=== PATIENT | male | born 1970 | race Caucasian/White ===

== ENCOUNTER 2018-07-04 10:20 | Observation (INO) | payer OTHER ==
--- NOTE | 2018-07-04 10:53 | ED ---
General Adult HPI - General Chief complaint: Shortness of Breath Stated complaint: SOB, CHEST CONGESTION Time Seen by Provider: 07/04/18 10:30 Source: patient, RN notes reviewed Mode of arrival: ambulatory Limitations: no limitations - History of Present Illness Initial comments: This is a 47-year-old male presents emergency Department complaining of shortness of breath per patient states he's been having some shortness of breath for about 3 months now. Patient states she's not been able see a physician because he had no insurance until 2 days ago. Patient states he also is been having a cough since before . Patient states he continues to cough. Patient states he hasn't had any recent fever or chills. Patient denies any chest pain. Patient denies any palpitations. Patient states he went to see an urgent care facility yesterday and they told him he has a mass on his lungs and he went to see his new primary medical care doctor this morning and they sent him to the emergency department. Patient denies any abdominal pain patient denies nausea vomiting diarrhea. Patient denies headache patient denies numbness weakness. Patient denies any lightheadedness dizziness or near syncopal episode. - Related Data Home Medications Medication Instructions Recorded Confirmed No Known Home Medications 01/31/16 07/04/18 Allergies Allergy/AdvReac Type Severity Reaction Status Date / Time No Known Allergies Allergy Verified 07/04/18 10:57 Review of Systems ROS Statement: Those systems with pertinent positive or pertinent negative responses have been documented in the HPI. ROS Other: All systems not noted in ROS Statement are negative. Past Medical History Past Medical History: Hypertension Additional Past Medical History / Comment(s): Lumbar back pain History of Any Multi-Drug Resistant Organisms: None Reported Past Surgical History: No Surgical Hx Reported Additional Past Surgical History / Comment(s): oral, vasectomy Past Psychological History: No Psychological Hx Reported Smoking Status: Former smoker Past Alcohol Use History: Rare Past Drug Use History: None Reported General Exam - General Exam Comments Initial Comments: GENERAL: Patient is well-developed and well-nourished. Patient is nontoxic and well- hydrated and is in mild distress. ENT: Neck is soft and supple. No significant lymphadenopathy is noted. Oropharynx is clear. Moist mucous membranes. Neck has full range of motion without eliciting any pain. EYES: The sclera were anicteric and conjunctiva were pink and moist. Extraocular movements were intact and pupils were equal round and reactive to light. Eyelids were unremarkable. PULMONARY: Unlabored respirations. Good breath sounds bilaterally. No audible rales rhonchi or wheezing was noted. CARDIOVASCULAR: There is a regular rate and rhythm without any murmurs gallops or rubs. ABDOMEN: Soft and nontender with normal bowel sounds. No palpable organomegaly was noted. There is no palpable pulsatile mass. SKIN: Skin is clear with no lesions or rashes and otherwise unremarkable. NEUROLOGIC: Patient is alert and oriented x3. Cranial nerves II through XII are grossly intact. Motor and sensory are also intact. Normal speech, volume and content. Symmetrical smile. MUSCULOSKELETAL: Normal extremities with adequate strength and full range of motion. No lower extremity swelling or edema. No calf tenderness. LYMPHATICS: No significant lymphadenopathy is noted PSYCHIATRIC: Normal psychiatric evaluation. Limitations: no limitations Course Vital Signs 07/04/18 07/04/18 07/04/18 10:36 10:52 11:22 Temperature 98.6 F Pulse Rate 66 66 Respiratory 18 22 16 Rate Blood Pressure 148/87 126/97 O2 Sat by Pulse 95 95 Oximetry Medical Decision Making - Medical Decision Making EKG shows sinus bradycardia 51 bpm MS interval 274 Ron is 92 QT interval is 434 QTC is 400. Patient's EKG shows no ST segment elevation or depression or T wave abnormalities are noted. CT of the chest shows masslike area in the suprahilar area on the left I spoke with Dr. Black he wanted to admit the patient admitted the patient I consult pulmonology I started antibiotics for possible obstructive pneumonia. - Lab Data Result diagrams: 07/04/18 10:50 07/04/18 10:50 Lab Results 07/04/18 07/04/18 07/04/18 Range/Units 10:50 10:50 10:50 WBC 6.3 (3.8-10.6) k/uL RBC 4.90 (4.30-5.90) m/uL Hgb 14.8 (13.0-17.5) gm/dL Hct 44.7 (39.0-53.0) % MCV 91.2 (80.0-100.0) fL MCH 30.2 (25.0-35.0) pg MCHC 33.2 (31.0-37.0) g/dL RDW 13.0 (11.5-15.5) % Plt Count 264 (150-450) k/uL Neutrophils % 54 % Lymphocytes % 34 % Monocytes % 7 % Eosinophils % 2 % Basophils % 0 % Neutrophils # 3.4 (1.3-7.7) k/uL Lymphocytes # 2.1 (1.0-4.8) k/uL Monocytes # 0.4 (0-1.0) k/uL Eosinophils # 0.1 (0-0.7) k/uL Basophils # 0.0 (0-0.2) k/uL PT 10.8 (9.0-12.0) sec INR 1.0 (<1.2) APTT 26.1 (22.0-30.0) sec D-Dimer 0.41 (<0.60) mg/L FEU Sodium 140 (137-145) mmol/L Potassium 4.8 (3.5-5.1) mmol/L Chloride 107 (98-107) mmol/L Carbon Dioxide 23 (22-30) mmol/L Anion Gap 10 mmol/L BUN 26 H (9-20) mg/dL Creatinine 0.95 (0.66-1.25) mg/dL Est GFR (CKD-EPI)AfAm >90 (>60 ml/min/1.73 sqM) Est GFR (CKD-EPI)NonAf >90 (>60 ml/min/1.73 sqM) Glucose 118 H (74-99) mg/dL Calcium 10.0 (8.4-10.2) mg/dL Magnesium 1.8 (1.6-2.3) mg/dL Total Bilirubin 1.4 H (0.2-1.3) mg/dL AST 24 (17-59) U/L ALT 57 (21-72) U/L Alkaline Phosphatase 63 (38-126) U/L Troponin I (0.000-0.034) ng/mL NT-Pro-B Natriuret Pep pg/mL Total Protein 7.9 (6.3-8.2) g/dL Albumin 4.7 (3.5-5.0) g/dL 07/04/18 07/04/18 Range/Units 10:50 10:50 WBC (3.8-10.6) k/uL RBC (4.30-5.90) m/uL Hgb (13.0-17.5) gm/dL Hct (39.0-53.0) % MCV (80.0-100.0) fL MCH (25.0-35.0) pg MCHC (31.0-37.0) g/dL RDW (11.5-15.5) % Plt Count (150-450) k/uL Neutrophils % % Lymphocytes % % Monocytes % % Eosinophils % % Basophils % % Neutrophils # (1.3-7.7) k/uL Lymphocytes # (1.0-4.8) k/uL Monocytes # (0-1.0) k/uL Eosinophils # (0-0.7) k/uL Basophils # (0-0.2) k/uL PT (9.0-12.0) sec INR (<1.2) APTT (22.0-30.0) sec D-Dimer (<0.60) mg/L FEU Sodium (137-145) mmol/L Potassium (3.5-5.1) mmol/L Chloride (98-107) mmol/L Carbon Dioxide (22-30) mmol/L Anion Gap mmol/L BUN (9-20) mg/dL Creatinine (0.66-1.25) mg/dL Est GFR (CKD-EPI)AfAm (>60 ml/min/1.73 sqM) Est GFR (CKD-EPI)NonAf (>60 ml/min/1.73 sqM) Glucose (74-99) mg/dL Calcium (8.4-10.2) mg/dL Magnesium (1.6-2.3) mg/dL Total Bilirubin (0.2-1.3) mg/dL AST (17-59) U/L ALT (21-72) U/L Alkaline Phosphatase (38-126) U/L Troponin I <0.012 (0.000-0.034) ng/mL NT-Pro-B Natriuret Pep 27 pg/mL Total Protein (6.3-8.2) g/dL Albumin (3.5-5.0) g/dL Disposition Clinical Impression: Obstructive pneumonia, Lung mass Disposition: ADMITTED IP TO THIS HOSP Referrals: Deuce Tompkins MD [Primary Care Provider] - 1-2 days Time of Disposition: 12:33
[2018-07-04 11:31] LABS: Basophils % (A) 0 %; Eosinophils # (A) 0.1 k/uL (0-0.7); Eosinophils % (A) 2 %; HCT 44.7 % (39.0-53.0); HGB 14.8 gm/dL (13.0-17.5); Lymphocytes # (A) 2.1 k/uL (1.0-4.8); Lymphocytes % (A) 34 %; MCH 30.2 pg (25.0-35.0); MCHC 33.2 g/dL (31.0-37.0); MCV 91.2 fL (80.0-100.0); Monocytes # (A) 0.4 k/uL (0-1.0); Monocytes % (A) 7 %; Neutrophils # (A) 3.4 k/uL (1.3-7.7); Neutrophils % (A) 54 %; Platelet Count 264 k/uL (150-450); WBC 6.3 k/uL (3.8-10.6)
[2018-07-04 11:42] LABS: ALT 57 U/L (21-72); AST 24 U/L (17-59); Albumin 4.7 g/dL (3.5-5.0); Alkaline Phosphatase 63 U/L (38-126); Anion Gap 10 mmol/L; Blood Urea Nitrogen 26 mg/dL (9-20); Carbon Dioxide 23 mmol/L (22-30); Chloride 107 mmol/L (98-107); Glucose 118 mg/dL (74-99); Magnesium 1.8 mg/dL (1.6-2.3); Potassium 4.8 mmol/L (3.5-5.1); Sodium 140 mmol/L (137-145); Total Bilirubin 1.4 mg/dL (0.2-1.3); Total Protein 7.9 g/dL (6.3-8.2)
[2018-07-04 11:46] LABS: D-Dimer 0.41 mg/L FEU (<0.60); Partial Thromboplastin Time 26.1 sec (22.0-30.0); Prothrombin Time 10.8 sec (9.0-12.0)
--- NOTE | 2018-07-04 12:05 | CT ---
EXAMINATION TYPE: CT chest angio for PE DATE OF EXAM: 07/04/2018 COMPARISON: NONE HISTORY: Congestion, SOB CT DLP: 408.7 mGycm. Automated Exposure Control for Dose Reduction was Utilized. CONTRAST: CTA scan of the thorax is performed with IV Contrast, patient injected with 100 mL of Isovue 370, pul monary embolism protocol. MIP Images are created on CT scanner and reviewed. FINDINGS: LUNGS: There is 7 mm calcified nodule or granuloma in the left lower lobe axial image 63. Dependent a telectasis bilateral lower lobes is present. There is suspicious left suprahilar mass centered inferi or medial aspect left upper lobe abutting the mediastinum measuring 3.2 x 2.3 cm on axial image 35. M ild underlying emphysematous change is present in the lung apices. MEDIASTINUM: There is satisfactory enhancement of the pulmonary artery and its branches, there is no CT evidence for pulmonary embolism. There are no greater than 1 cm noncalcified hilar or mediastina l lymph nodes. There is nonspecific prominent partially calcified 13 x 9 mm prevascular lymph node o n axial image 39. There are prominent but subcentimeter subcarinal lymph nodes No cardiomegaly or per icardial effusion is seen. OTHER: Mild to moderate multilevel spurring in the thoracic spine is seen. IMPRESSION: 1. Mild emphysematous change with evidence of old granulomatous disease. No suspicious acute pulmonar y process. 2. No acute pulmonary embolism. 3. Suspicious noncalcified left suprahilar mass or masslike consolidation medially abutting the media stinum in which neoplasm cannot be excluded. Follow-up PET/CT advised to further evaluate.
[2018-07-04] MEDS ORDERED: cefTRIAXone IN SWFI 1,000 MG/10 ML SYRINGE IVP STA (12:31)
[2018-07-04] MEDS ORDERED: SODIUM CHLORIDE 0.9% 1,000 ML IV ONE (12:33)
[2018-07-04] MEDS: LORazepam 2 MG/ML INJ IV PRN (14:17)
--- NOTE | 2018-07-04 14:59 | P.CNPUL ---
History of Present Illness Consult date: 07/04/18 Reason for consult: lung mass History of present illness: 47-year-old male patient was Hospital as because of increased cough that now for the past 3 months. Some limited shortness of breath. The patient hasn't been able to see any physician as the patient did not have any medical coverage. No hemoptysis. No pleurisy. No weight loss. No other constitutional symptoms. He is a chronic smoker. He came into the emergency the chest x-ray was abnormal and a CAT scan of the chest was done that showed mild emphysematous change in addition to a 3.2 x 2.3 cm mass in the left suprahilar area, central in location very close to the mediastinum without any significant mediastinal lymphadenopathy. There is 1 suspicious lymph node in the prevascular area measuring 1.3 x 9 mm in size. This can be a nonspecific findings. The rest of mediastinum including the hilar and mediastinal lymph nodes are all not enlarged. Review of Systems Constitutional: Denies chills, Denies fever Eyes: denies as per HPI, denies blurred vision, denies bulging eye, denies decreased vision, denies diplopia, denies discharge, denies dry eye, denies irritation, denies itching, denies pain, denies photophobia, denies loss of peripheral vision, denies loss of vision, denies tunnel vision/blind spots Ears: deny: decreased hearing, ear discharge, earache, tinnitus Ears, nose, mouth and throat: Reports as per HPI Cardiovascular: Denies chest pain, Denies shortness of breath Respiratory: Reports cough, Reports dyspnea Gastrointestinal: Reports as per HPI Genitourinary: Reports as per HPI Musculoskeletal: Reports as per HPI Musculoskeletal: absent: ankle pain, ankle stiffness, ankle swelling, as per HPI , elbow pain, elbow stiffness, elbow swelling, foot pain, foot stiffness, foot swelling, hand pain, hand stiffness, hand swelling, hip pain, hip stiffness, hip swelling, knee pain, knee stiffness, knee swelling, shoulder pain, shoulder stiffness, shoulder swelling, wrist pain, wrist stiffness, wrist swelling Integumentary: Denies pruritus, Denies rash Neurological: Reports as per HPI Psychiatric: Reports as per HPI Hematologic/Lymphatic: Reports as per HPI Allergic/Immunologic: Reports as per HPI Past Medical History Past Medical History: Hypertension Additional Past Medical History / Comment(s): Lumbar back pain, bells palsy History of Any Multi-Drug Resistant Organisms: None Reported Past Surgical History: No Surgical Hx Reported Additional Past Surgical History / Comment(s): oral, vasectomy Past Anesthesia/Blood Transfusion Reactions: No Reported Reaction Past Psychological History: No Psychological Hx Reported Smoking Status: Former smoker Past Alcohol Use History: Rare Past Drug Use History: None Reported - Past Family History Father Family Medical History: Renal Disease Medications and Allergies Home Medications Medication Instructions Recorded Confirmed Type No Known Home Medications 01/31/16 07/04/18 History Allergies Allergy/AdvReac Type Severity Reaction Status Date / Time No Known Allergies Allergy Verified 07/04/18 10:57 Physical Exam Vitals: Vital Signs Temp Pulse Resp BP Pulse Ox 07/04/18 12:30 52 L 18 127/87 96 07/04/18 12:20 44 L 18 127/87 07/04/18 12:10 48 L 14 127/87 07/04/18 12:00 59 L 16 07/04/18 11:50 45 L 16 07/04/18 11:40 56 L 14 07/04/18 11:30 126/97 07/04/18 11:22 66 16 126/97 95 07/04/18 10:52 22 07/04/18 10:36 98.6 F 66 18 148/87 95 Intake and Output 07/03/18 07/04/18 07/04/18 22:59 06:59 14:59 Other: Weight 98.43 kg The patient appeared well nourished and normally developed. Vital signs as documented. Head exam is unremarkable. No scleral icterus or corneal arcus noted. Neck is without jugular venous distension, thyromegaly, or carotid bruits. Carotid upstrokes are brisk bilaterally. Lungs are clear to auscultation and percussion. Cardiac exam reveals the PMI to be normally sized and situated. Rhythm is regular. First and second heart sounds normal. No murmurs, rubs or gallops. Abdominal exam reveals normal bowel sounds, no masses , no organomegaly and no aortic enlargement. Extremities are nonedematous and both femoral and pedal pulses are normal. Neurologically awake and alert and is no focal logical deficits. Results - Laboratory Findings CBC and BMP: 07/04/18 10:50 07/04/18 10:50 PT/INR, D-dimer PT 10.8 sec (9.0-12.0) 07/04/18 10:50 INR 1.0 (<1.2) 07/04/18 10:50 D-Dimer 0.41 mg/L FEU (<0.60) 07/04/18 10:50 Abnormal lab findings: Abnormal Labs 07/04/18 10:50 BUN 26 H Glucose 118 H Total Bilirubin 1.4 H - Diagnostic Findings Chest x-ray: image reviewed CT scan - chest: image reviewed Assessment and Plan Plan: Assessment 1 left suprahilar mass measuring 3.2 x 2.3 cm in size. The findings are very suspicious for malignancy. The lesion itself is abutting the mediastinum. There is a nonspecific prevascular lymph node measuring 13 x 9 mm in size. 2 mild emphysema 3 chronic smoker 4 chronic cough secondary to above, ongoing for now. 5 cutaneous lipomas 6 anxiety Plan I do not see the need for biopsy. This is a very highly suspicious left upper lobe lesion that most likely presents an underlying malignancy of a bronchogenic type/lung cancer. The lesion is not fully accessible to a biopsy knowing that I do not see any airway leading into that area and the lesion is sent for this very close to the mediastinum is almost abutting the mediastinum. The patient will need an outpatient PET scan to assess the metabolic activity of this lesion. He will need an outpatient for the function tests. Subsequently, the patient will need an immediate thoracic surgery consultation in consultation for left upper lobe resection. If not and the before surgical resection, we'll consider biopsy for diagnostic purposes. Meanwhile, we'll give the patient combination of DuoNeb nebulized treatments on the clock, IV Solu Medrol, promethazine with codeine to suppress his cough and I anticipate his cough to subside over the next 24 hours. Ativan for anxiety as the patient is extremely anxious at this point in time. We'll continue to follow. This is discussed with the patient at length.
--- NOTE | 2018-07-04 15:11 | P.HPIM ---
History of Present Illness 47-year-old pleasant gentleman came in with complaints of symptoms of cough has been going on for 3 months with some shortness of breath patient denied any fever chills nausea vomiting. Patient denied any hemoptysis significant weight loss area did patient had a chest x-ray and a CAT scan which showed emphysematous changes and a 3.2 X 2.3 mass in the left upper the suprahilar area with significant mediastinal lymphadenopathy, pulmonary was consulted possibility of malignancy is high same thing was discussed with the patient. Patient used to smoke 19 years ago does have [id number] history of smoking. Review of Systems REVIEW OF SYSTEMS: CONSTITUTIONAL: No fever, no malaise, no fatigue. HEENT: No recent visual problems or hearing problems. Denied any sore throat. CARDIOVASCULAR: No chest pain, orthopnea, PND, no palpitations, no syncope. PULMONARY:, no hemoptysis. GASTROINTESTINAL: No diarrhea, no nausea, no vomiting, no abdominal pain. NEUROLOGICAL: No headaches, no weakness, no numbness. HEMATOLOGICAL: Denies any bleeding or petechiae. GENITOURINARY: Denies any burning micturition, frequency, or urgency. MUSCULOSKELETAL/RHEUMATOLOGICAL: Denies any joint pain, swelling, or any muscle pain. ENDOCRINE: Denies any polyuria or polydipsia. The rest of the 14-point review of systems is negative. Past Medical History Past Medical History: Hypertension Additional Past Medical History / Comment(s): Lumbar back pain, bells palsy History of Any Multi-Drug Resistant Organisms: None Reported Past Surgical History: No Surgical Hx Reported Additional Past Surgical History / Comment(s): oral, vasectomy Past Anesthesia/Blood Transfusion Reactions: No Reported Reaction Past Psychological History: No Psychological Hx Reported Smoking Status: Former smoker Past Alcohol Use History: Rare Past Drug Use History: None Reported - Past Family History Father Family Medical History: Renal Disease Medications and Allergies Home Medications Medication Instructions Recorded Confirmed Type No Known Home Medications 01/31/16 07/04/18 History Allergies Allergy/AdvReac Type Severity Reaction Status Date / Time No Known Allergies Allergy Verified 07/04/18 10:57 Physical Exam Vitals: Vital Signs Temp Pulse Pulse Resp BP BP Pulse Ox 07/04/18 13:30 97.5 F L 57 L 20 159/102 98 07/04/18 12:30 52 L 18 127/87 96 07/04/18 12:20 44 L 18 127/87 07/04/18 12:10 48 L 14 127/87 07/04/18 12:00 59 L 16 07/04/18 11:50 45 L 16 07/04/18 11:40 56 L 14 07/04/18 11:30 126/97 07/04/18 11:22 66 16 126/97 95 07/04/18 10:52 22 07/04/18 10:36 98.6 F 66 18 148/87 95 Intake and Output 07/04/18 07/04/18 07/04/18 06:59 14:59 22:59 Other: Weight 98.43 kg PHYSICAL EXAMINATION: GENERAL: The patient is alert and oriented x3, not in any acute distress. Well developed, well nourished. HEENT: Pupils are round and equally reacting to light. EOMI. No scleral icterus. No conjunctival pallor. Normocephalic, atraumatic. No pharyngeal erythema. No thyromegaly. CARDIOVASCULAR: S1 and S2 present. No murmurs, rubs, or gallops. PULMONARY: Chest is clear to auscultation, no wheezing or crackles. ABDOMEN: Soft, nontender, nondistended, normoactive bowel sounds. No palpable organomegaly. MUSCULOSKELETAL: No joint swelling or deformity. EXTREMITIES: No cyanosis, clubbing, or pedal edema. NEUROLOGICAL: Gross neurological examination did not reveal any focal deficits. SKIN: No rashes. Results CBC & Chem 7: 07/04/18 10:50 07/04/18 10:50 Labs: Abnormal Lab Results - Last 24 Hours (Table) 07/04/18 Range/Units 10:50 BUN 26 H (9-20) mg/dL Glucose 118 H (74-99) mg/dL Total Bilirubin 1.4 H (0.2-1.3) mg/dL Thrombosis Risk Factor Assmnt - Choose All That Apply Each Factor Represents 1 point: Age 41-60 years Thrombosis Risk Factor Assessment Total Risk Factor Score: 1 Thrombosis Risk Factor Assessment Level: Low Risk Assessment and Plan Plan: -Cough probably because of malignancy will use a inhalational treatments. In with codeine. My suspicion of pneumonia is low patient will be continued on antibiotics today probably can discontinue antibiotics tomorrow patient probably can be discharged tomorrow after evaluation by pulmonary -Left suprahilar mass high possibility of malignancy, pulmonary will evaluated the patient -Mild emphysema patient will be started given steroids for his cough anyways -Multiple cutaneous lipomas -Anxiety disorder
[2018-07-04] MEDS: PROMETHAZ-COD 6.25-10 MG/5 ML 5 ML CUP PO PRN (17:58)
[2018-07-04] MEDS: ALPRAZolam 0.25 MG TAB PO PRN (17:58)
[2018-07-04] MEDS: IPRATROPIUM-ALBUTEROL 3 ML NEB INHALATION SCH ×2 (18:19→19:28)
[2018-07-04] MEDS: methylPREDNISolone SOD SUCCI 40 MG/ML 1 ML VIAL IV SCH (21:49)
[2018-07-04 22:58] VITALS: RESP 18
[2018-07-05 06:20] VITALS: BP 128/74; TEMP 96.7
[2018-07-05] MEDS: IPRATROPIUM-ALBUTEROL 3 ML NEB INHALATION SCH ×2 (07:23→11:13)
[2018-07-05] MEDS: ALPRAZolam 0.25 MG TAB PO PRN ×2 (08:16→12:19)
[2018-07-05] MEDS: methylPREDNISolone SOD SUCCI 40 MG/ML 1 ML VIAL IV SCH (08:16)
[2018-07-05] MEDS: LORazepam 2 MG/ML INJ IV PRN (08:23)
[2018-07-05] MEDS: PROMETHAZ-COD 6.25-10 MG/5 ML 5 ML CUP PO PRN (10:51)
[2018-07-05 11:23] VITALS: PULSE 82
--- NOTE | 2018-07-05 12:58 | P.DS ---
Providers Date of admission: 07/04/18 12:33 Attending physician: Rishi Black Consults: 07/04/18 12:33 Consult Physician Urgent Consulting Provider: Maury Daniels Consult Reason/Comments: Lung mass Do you want consulting provider notified?: Yes Primary care physician: Turner Coulter [facility] Course: 47-year-old pleasant gentleman came in with complaints of symptoms of cough has been going on for 3 months with some shortness of breath patient denied any fever chills nausea vomiting. Patient denied any hemoptysis significant weight loss area did patient had a chest x-ray and a CAT scan which showed emphysematous changes and a 3.2 X 2.3 mass in the left upper the suprahilar area with significant mediastinal lymphadenopathy, pulmonary was consulted possibility of malignancy is high same thing was discussed with the patient. Patient used to smoke 19 years ago does have [id number] history of smoking. 07/05/2018 Patient will be discharged today clinically doing well cough is better. Patient will not require any antibiotics patient will follow-up with the pulmonary as an outpatient, possibility of PET scan followed by a biopsy. Patient will follow Dr. Tompkins as an outpatient. Patient is quite a bit anxious with the diagnosis of possible lung cancer because of which I'll prescribe him 3 days of Ativan. PHYSICAL EXAMINATION: GENERAL: The patient is alert and oriented x3, not in any acute distress. Obese HEENT: Pupils are round and equally reacting to light. EOMI. No scleral icterus. No conjunctival pallor. Normocephalic, atraumatic. No pharyngeal erythema. No thyromegaly. CARDIOVASCULAR: S1 and S2 present. No murmurs, rubs, or gallops. PULMONARY: Chest is clear to auscultation, no wheezing or crackles. ABDOMEN: Soft, nontender, nondistended, normoactive bowel sounds. No palpable organomegaly. MUSCULOSKELETAL: No joint swelling or deformity. EXTREMITIES: No cyanosis, clubbing, or pedal edema. NEUROLOGICAL: Gross neurological examination did not reveal any focal deficits. SKIN: No rashes. Assessment and Plan Plan: -Cough probably because of malignancy -Left suprahilar mass high possibility of malignancy, pulmonary evaluated the patient follow-up as an outpatient for further workup as mentioned above -Mild emphysema not in COPD exacerbation at this time -Multiple cutaneous lipomas -Anxiety disorder Plan - Discharge Summary Discharge Rx Participant: No New Discharge Prescriptions: New Albuterol Inhaler [Ventolin Hfa Inhaler] 1 - 2 puff INHALATION Q6HR PRN #1 inhaler PRN Reason: Shortness Of Breath Or Wheezing ALPRAZolam [Xanax] 0.25 mg PO QID PRN #12 tab PRN Reason: Anxiety Promethaz-Cod 6.25-10 mg/5 ml [Phenergan with Codeine] 5 ml PO Q4H PRN #250 ml PRN Reason: Cold Symptoms Discharge Medication List ALPRAZolam [Xanax] 0.25 mg PO QID PRN #12 tab 07/05/18 [Rx] Albuterol Inhaler [Ventolin Hfa Inhaler] 1 - 2 puff INHALATION Q6HR PRN #1 inhaler 07/05/18 [Rx] Promethaz-Cod 6.25-10 mg/5 ml [Phenergan with Codeine] 5 ml PO Q4H PRN #250 ml 07/05/18 [Rx] Follow up Appointment(s)/Referral(s): Deuce Tompkins MD [Primary Care Provider] - 3 Days Maury Daniels MD [STAFF PHYSICIAN] - 1 Week Discharge Disposition: HOME SELF-CARE
--- NOTE | 2018-07-05 13:09 | XR ---
EXAMINATION TYPE: XR ankle complete LT DATE OF EXAM: 07/05/2018 COMPARISON: NONE HISTORY: 47-year-old male ankle pain TECHNIQUE: 3 views FINDINGS: Ankle mortise is congruent with preservation of the distal tibiofibular overlap. Talar dome is intact . Small delineation to the Achilles tendon. Anterior soft tissue swelling is present. Moderate-sized plantar calcaneal spur. IMPRESSION: Anterior soft tissue swelling. Moderate-sized plantar calcaneal spur. No acute osseous abnormality se en.
== END 2018-07-05 14:12 | disposition home or self-care (01) ==
LOC: EC 10:20 → 4MS4W 12:33
PROVIDERS: ADMIT Internal Medicine; ATTEND Internal Medicine
DX: R91.8 Other nonspecific abnormal finding of lung field (principal); R05 Cough; R59.0 Localized enlarged lymph nodes; I10 Essential (primary) hypertension; G51.0 Bell's palsy; M54.5 Low back pain; J43.9 Emphysema, unspecified; F41.9 Anxiety disorder, unspecified; D17.30 Benign lipomatous neoplasm of skin and subcutaneous tissue of unspecified sites; E66.9 Obesity, unspecified; Z68.35 Body mass index [BMI] 35.0-35.9, adult; Z87.891 Personal history of nicotine dependence
CPT/HCPCS: 96376; 96361 ×3; 96375; 96374; 99285; 36415; 94640; 93005; 85379; 83880; 80053; 83605; 83735; 84484; 85025; 85610; 85730; 87040; 73610; 71275; G0378 ×2; J2060 ×2; J2920 ×2; J0696; Q9967

== ENCOUNTER 2018-07-12 20:51 | Emergency (ER) | payer OTHER ==
[2018-07-12 21:32] VITALS: RESP 18
[2018-07-12] MEDS ORDERED: IBUPROFEN 600 MG TAB PO STA (21:37)
[2018-07-12] MEDS ORDERED: ACETAMINOPHEN TAB 500 MG TAB PO STA (21:37)
--- NOTE | 2018-07-12 21:51 | XR ---
EXAMINATION TYPE: XR chest 2V DATE OF EXAM: 07/12/2018 COMPARISON: CT chest 07/04/2018 HISTORY: Cough TECHNIQUE: Frontal and lateral views of the chest are obtained. FINDINGS: There is a left upper lobe mass is noted on patient's CT. Calcified nodule present periphe rally as noted on CT and also the left lower lobe. No pneumothorax or pleural effusion. Heart size is normal. IMPRESSION: Suprahilar left upper lobe lung mass as noted on patient's CT suspicious for bronchogeni c carcinoma, consider pulmonary consult
[2018-07-12] MEDS ORDERED: ALBUTEROL NEBULIZED 2.5 MG/3 ML INHALATION STA (22:11)
[2018-07-12] MEDS ORDERED: IPRATROPIUM 0.5 MG/2.5 ML NEBU INHALATION STA (22:11)
[2018-07-12] MEDS ORDERED: methylPREDNISolone SOD SUCCI 125 MG/2 ML VIAL IM ONE (22:11)
[2018-07-12] MEDS ORDERED: PROMETHAZ-COD 6.25-10 MG/5 ML 5 ML CUP PO STA (22:11)
--- NOTE | 2018-07-12 22:19 | ED ---
URI HPI - General Chief Complaint: Upper Respiratory Infection Stated Complaint: Fever Time Seen by Provider: 07/12/18 22:01 Source: patient Mode of arrival: ambulatory Limitations: no limitations - History of Present Illness Initial Comments: 47-year-old male patient received recently diagnosed with a left perihilar lung mass presents to the emergency department today for evaluation of fever, worsening cough, and shortness of breath over the last 4 days. Patient states he is having some nasal drainage with this. Denies any sore throat or ear pain. Patient states he did do a breathing treatment early in the morning but it didn't seem to help him. States he has taken NyQuil which did not help his symptoms either. Patient was started on azithromycin on Friday for these symptoms and states that he has not improved at all. States temperature has been as high as 103F at home. Patient states he has not taken any Tylenol or Motrin throughout the day. States he has been increasing his fluids however. He denies any chest pain. Patient denies any recent rash, abdominal pain, nausea, vomiting, diarrhea, constipation, back pain, numbness, tingling, hematuria, dysuria, urinary urgency, urinary frequency, headache, visual changes, or any other complaints. - Related Data Previous Rx's Medication Instructions Recorded ALPRAZolam [Xanax] 0.25 mg PO QID PRN #12 tab 07/05/18 Albuterol Inhaler [Ventolin Hfa 1 - 2 puff INHALATION Q6HR PRN #1 07/05/18 Inhaler] inhaler Promethaz-Cod 6.25-10 mg/5 ml 5 ml PO Q4H PRN #250 ml 07/05/18 [Phenergan with Codeine] Promethaz-Cod 6.25-10 mg/5 ml 5 ml PO Q4HR PRN 3 Days #90 ml 07/12/18 [Phenergan with Codeine] predniSONE 50 mg PO DAILY #5 tablet 07/12/18 Allergies Allergy/AdvReac Type Severity Reaction Status Date / Time No Known Allergies Allergy Verified 07/04/18 10:57 Review of Systems ROS Statement: Those systems with pertinent positive or pertinent negative responses have been documented in the HPI. ROS Other: All systems not noted in ROS Statement are negative. Past Medical History Past Medical History: Hypertension Additional Past Medical History / Comment(s): Lumbar back pain, bells palsy, mass left lung, History of Any Multi-Drug Resistant Organisms: None Reported Past Surgical History: No Surgical Hx Reported Additional Past Surgical History / Comment(s): oral, vasectomy, Past Anesthesia/Blood Transfusion Reactions: No Reported Reaction Past Psychological History: No Psychological Hx Reported Smoking Status: Former smoker Past Alcohol Use History: Rare Past Drug Use History: None Reported - Past Family History Father Family Medical History: Renal Disease General Exam Limitations: no limitations General appearance: alert, in no apparent distress, other (Physical well- developed, well-nourished adult male patient in no acute distress. Vital signs upon presentation are temperature 103.1F, pulse 93, respirations 18, blood pressure 125/75, pulse ox 96% on room air.) Eye exam: Present: normal appearance, PERRL, EOMI. Absent: scleral icterus, conjunctival injection, periorbital swelling ENT exam: Present: mucous membranes moist. Absent: normal exam, normal or opharynx (Pharyngeal erythema) Neck exam: Present: normal inspection. Absent: tenderness, meningismus, lymphadenopathy Respiratory exam: Present: normal lung sounds bilaterally, other (Tachypnea). Absent: respiratory distress, wheezes, rales, rhonchi, stridor Cardiovascular Exam: Present: regular rate, normal rhythm, normal heart sounds. Absent: systolic murmur, diastolic murmur, rubs, gallop, clicks GI/Abdominal exam: Present: soft, normal bowel sounds. Absent: distended, tenderness, guarding, rebound, rigid Neurological exam: Present: alert, oriented X3, CN II-XII intact Psychiatric exam: Present: normal affect, normal mood Skin exam: Present: warm, dry, intact, normal color. Absent: rash Course Vital Signs 07/12/18 07/12/18 07/12/18 21:28 22:48 22:58 Temperature 103.1 F H Pulse Rate 93 93 84 Respiratory 18 Rate Blood Pressure 125/75 O2 Sat by Pulse 96 Oximetry 07/12/18 23:22 Temperature 98.4 F Pulse Rate 70 Respiratory 18 Rate Blood Pressure 114/76 O2 Sat by Pulse 93 L Oximetry Medical Decision Making - Medical Decision Making 47-year-old male patient presents to the emergency department today for evaluation of shortness of breath, worsening cough, and fever. Physical examination was relatively unremarkable. Lungs are clear to auscultation with good air movement. Patient was to Make. Patient did have temperature 103.5F upon arrival. He stated he did not take any antipyretic medication prior to coming in. Chest x-ray was obtained and showed a redemonstrated left perihilar bronchogenic mass which patient was aware of. Oxygen saturation was satisfactory. Patient did test positive for influenza A. Patient was given breathing treatment, intramuscular steroid, and cough medication here in the emergency department. Upon reevaluation patient states he is feeling much better. States he is breathing much better. He does feel comfortable being discharged home at this time. We'll give a prescription for prednisone, Phenergan With Codeine, and he does have breathing treatments at home. Patient has had symptoms for the last 4 days and therefore is out of the treatment window for Tamiflu. He'll be discharged home at this time to follow-up with his primary care physician for recheck in 1-2 days. He does have an appointment with bundle shaker on Friday. Return parameters were discussed in detail. He verbalizes understanding and agrees with this plan. - Lab Data Lab Results 07/12/18 Range/Units 21:32 Influenza Type A RNA Detected H (Not Detectd) Influenza Type B (PCR) Not Detected (Not Detectd) - Radiology Data Radiology results: report reviewed, image reviewed Two-view x-ray of the chest is obtained. Report was reviewed in its entirety. Impression by Dr. Lozoya shows suprahilar left upper lobe lung masses noted on patient's CT suspicious for bronchogenic carcinoma. Disposition Clinical Impression: Influenza A Disposition: HOME SELF-CARE Condition: Good Instructions (If sedation given, give patient instructions): Influenza (ED) Additional Instructions: Take medications as directed. Follow-up with your primary care physician for recheck in 1-2 days. Return to the emergency department for any new, worsening, or concerning symptoms. Prescriptions: Promethaz-Cod 6.25-10 mg/5 ml [Phenergan with Codeine] 5 ml PO Q4HR PRN 3 Days #90 ml PRN Reason: Cough predniSONE 50 mg PO DAILY #5 tablet Is patient prescribed a controlled substance at d/c from ED?: No Referrals: Deuce Tompkins MD [Primary Care Provider] - 1-2 days Time of Disposition: 23:29
[2018-07-12 23:24] VITALS: BP 114/76; PULSE 70; TEMP 98.4
== END 2018-07-12 23:38 | disposition home or self-care (01) ==
LOC: EC 20:51
DX: J10.1 Influenza due to other identified influenza virus with other respiratory manifestations (principal); R91.8 Other nonspecific abnormal finding of lung field; Z87.891 Personal history of nicotine dependence; Z98.890 Other specified postprocedural states
CPT/HCPCS: 94640; 87502; 71046; 99285; 96372; J2930

== ENCOUNTER 2018-07-15 20:52 | Inpatient (IN) | payer OTHER ==
[2018-07-15] MEDS ORDERED: SODIUM CHLORIDE 0.9% 1,000 ML IV ONE (21:39)
[2018-07-15 22:14] LABS: Basophils # (A) 0.1 k/uL (0-0.2); Basophils % (A) 0 %; Eosinophils # (A) 0.1 k/uL (0-0.7); Eosinophils % (A) 0 %; HCT 43.1 % (39.0-53.0); HGB 14.5 gm/dL (13.0-17.5); Lymphocytes # (A) 0.7 k/uL (1.0-4.8); Lymphocytes % (A) 3 %; MCH 30.1 pg (25.0-35.0); MCHC 33.7 g/dL (31.0-37.0); MCV 89.3 fL (80.0-100.0); Mean Platelet Volume 7.9; Monocytes # (A) 0.6 k/uL (0-1.0); Monocytes % (A) 3 %; Neutrophils # (A) 20.1 k/uL (1.3-7.7); Neutrophils % (A) 92 %; Platelet Count 203 k/uL (150-450); RBC 4.82 m/uL (4.30-5.90); RDW 12.6 % (11.5-15.5); WBC 21.9 k/uL (3.8-10.6)
[2018-07-15 22:28] LABS: ALT 55 U/L (21-72); AST 65 U/L (17-59); Albumin 3.7 g/dL (3.5-5.0); Alkaline Phosphatase 52 U/L (38-126); Anion Gap 12 mmol/L; Blood Urea Nitrogen 17 mg/dL (9-20); Calcium 8.9 mg/dL (8.4-10.2); Carbon Dioxide 22 mmol/L (22-30); Chloride 94 mmol/L (98-107); Glucose 209 mg/dL (74-99); Potassium 4.8 mmol/L (3.5-5.1); Sodium 128 mmol/L (137-145); Total Bilirubin 1.4 mg/dL (0.2-1.3); Total Protein 6.9 g/dL (6.3-8.2)
[2018-07-15 22:36] LABS: Creatine Kinase 1311 U/L (55-170)
[2018-07-15] MEDS ORDERED: ACETAMINOPHEN TAB 325 MG TAB PO PRN (22:38)
[2018-07-15] MEDS ORDERED: IBUPROFEN 400 MG TAB PO PRN (22:38)
[2018-07-15] MEDS ORDERED: NALOXONE 0.4 MG/ML 1 ML VIAL IV PRN (22:38)
--- NOTE | 2018-07-15 22:47 | ED ---
Fever HPI - General Chief Complaint: Fever Stated Complaint: Flu, fever, weak Time Seen by Provider: 07/15/18 21:22 Source: family Mode of arrival: ambulatory Limitations: no limitations - History of Present Illness Initial Comments: Is a 47-year-old male with a history of a lung mass is currently being investigated he presents to the emergency department for reevaluation of progressive body aches, persistent fever after being diagnosed with influenza 3 days prior. Patient reports that he was diagnosed with influenza 3 days prior he's been drinking plenty of fluids but has had no appetite despite drinking fluids he continues to have fever chills body aches. Today his became concerned that he appeared to be getting worse rather than better so she brought him to the ER for further evaluation. - Related Data Previous Rx's Medication Instructions Recorded ALPRAZolam [Xanax] 0.25 mg PO QID PRN #12 tab 07/05/18 Albuterol Inhaler [Ventolin Hfa 1 - 2 puff INHALATION Q6HR PRN #1 07/05/18 Inhaler] inhaler Promethaz-Cod 6.25-10 mg/5 ml 5 ml PO Q4H PRN #250 ml 07/05/18 [Phenergan with Codeine] Promethaz-Cod 6.25-10 mg/5 ml 5 ml PO Q4HR PRN 3 Days #90 ml 07/12/18 [Phenergan with Codeine] predniSONE 50 mg PO DAILY #5 tablet 07/12/18 Allergies Allergy/AdvReac Type Severity Reaction Status Date / Time No Known Allergies Allergy Verified 07/15/18 21:36 Review of Systems ROS Statement: Those systems with pertinent positive or pertinent negative responses have been documented in the HPI. ROS Other: All systems not noted in ROS Statement are negative. Past Medical History Past Medical History: Hypertension Additional Past Medical History / Comment(s): Lumbar back pain, bells palsy, mass left lung, History of Any Multi-Drug Resistant Organisms: None Reported Past Surgical History: No Surgical Hx Reported Additional Past Surgical History / Comment(s): oral surgery, vasectomy, Past Anesthesia/Blood Transfusion Reactions: No Reported Reaction Past Psychological History: No Psychological Hx Reported Smoking Status: Former smoker Past Alcohol Use History: Rare Past Drug Use History: None Reported - Past Family History Father Family Medical History: Renal Disease General Exam - General Exam Comments Initial Comments: Physical Exam GENERAL: Unwell appearing HENT: Normocephalic, Atraumatic. EYES: PERRL, EOMI PULMONARY: Unlabored respirations. Decreased breath sounds RUL CARDIOVASCULAR: There is a regular rate and rhythm without any murmurs gallops or rubs. ABDOMEN: Soft and nontender with normal bowel sounds. SKIN: Warm clammy : Deferred NEUROLOGIC: Patient is alert and oriented x3. Moving all extremities spontaneously MUSCULOSKELETAL: Normal extremities with adequate strength and full range of motion. No lower extremity swelling or edema. No calf tenderness. PSYCHIATRIC: Normal psychiatric evaluation. Limitations: no limitations Limitations: no limitations Course Vital Signs 07/15/18 07/15/18 21:07 23:31 Temperature 99.1 F 98.9 F Pulse Rate 78 70 Respiratory 16 18 Rate Blood Pressure 117/72 111/63 O2 Sat by Pulse 97 92 L Oximetry Medical Decision Making - Medical Decision Making She was seen and evaluated history was obtained from patient and review of medical records Labs, IVF ordered Labs resulted with altered level abnormalities including hyponatremia, elevated glucose, elevated CPK consistent with rhabdomyolysis Patient has leukocytosis Chest x-ray suggestive of a right upper lobe pneumonia this is likely obstructive given that the patient's been evaluated for this in the past She care was discussed with the admitting physician Dr. evans who recommends patient be treated with Tamiflu, clindamycin for pneumonia and supportive care. He accepts the admission requests a consult to infectious disease. - Lab Data Result diagrams: 07/15/18 21:50 07/15/18 21:50 Lab Results 07/15/18 07/15/18 07/15/18 Range/Units 21:50 21:50 21:50 WBC 21.9 H (3.8-10.6) k/uL RBC 4.82 (4.30-5.90) m/uL Hgb 14.5 (13.0-17.5) gm/dL Hct 43.1 (39.0-53.0) % MCV 89.3 (80.0-100.0) fL MCH 30.1 (25.0-35.0) pg MCHC 33.7 (31.0-37.0) g/dL RDW 12.6 (11.5-15.5) % Plt Count 203 (150-450) k/uL Neutrophils % 92 % Lymphocytes % 3 % Monocytes % 3 % Eosinophils % 0 % Basophils % 0 % Neutrophils # 20.1 H (1.3-7.7) k/uL Lymphocytes # 0.7 L (1.0-4.8) k/uL Monocytes # 0.6 (0-1.0) k/uL Eosinophils # 0.1 (0-0.7) k/uL Basophils # 0.1 (0-0.2) k/uL Sodium 128 L (137-145) mmol/L Potassium 4.8 (3.5-5.1) mmol/L Chloride 94 L (98-107) mmol/L Carbon Dioxide 22 (22-30) mmol/L Anion Gap 12 mmol/L BUN 17 (9-20) mg/dL Creatinine 1.06 (0.66-1.25) mg/dL Est GFR (CKD-EPI)AfAm >90 (>60 ml/min/1.73 sqM) Est GFR (CKD-EPI)NonAf 83 (>60 ml/min/1.73 sqM) Glucose 209 H (74-99) mg/dL Calcium 8.9 (8.4-10.2) mg/dL Total Bilirubin 1.4 H (0.2-1.3) mg/dL AST 65 H (17-59) U/L ALT 55 (21-72) U/L Alkaline Phosphatase 52 (38-126) U/L Creatine Kinase 1311 H* (55-170) U/L Troponin I <0.012 (0.000-0.034) ng/mL Total Protein 6.9 (6.3-8.2) g/dL Albumin 3.7 (3.5-5.0) g/dL Disposition Clinical Impression: Influenza, Obstructive pneumonia, Lung mass, Influenza A Disposition: ADMITTED IP TO THIS HOSP Condition: Stable Is patient prescribed a controlled substance at d/c from ED?: No Referrals: Deuce Tompkins MD [Primary Care Provider] - 1-2 days
--- NOTE | 2018-07-15 23:07 | XR ---
EXAM: XR Chest, 2 Views CLINICAL HISTORY: ITS.REASON XR Reason: Pain TECHNIQUE: Frontal and lateral views of the chest. COMPARISON: No relevant prior studies available. FINDINGS: Lungs: Large right upper lobe infiltrate. Pleural space: Unremarkable. No pneumothorax. Heart: Unremarkable. No cardiomegaly. Mediastinum: Unremarkable. Bones/joints: No acute fracture. IMPRESSION: Large right upper lobe infiltrate.
[2018-07-15] MEDS ORDERED: OSELTAMIVIR 75 MG CAP PO ONE (23:45)
[2018-07-15] MEDS ORDERED: CLINDAMYCIN 600 MG in DEXTROSE 5% IN WATER 50 ML IVPB STA ×2 (23:55)
[2018-07-15] MEDS ORDERED: MORPHINE SULFATE 4 MG/ML SYRINGE IVP STA (23:56)
[2018-07-16] MEDS: SODIUM CHLORIDE 0.9% 1,000 ML IV SCH ×5 (00:22→17:43)
[2018-07-16] MEDS ORDERED: ALBUTEROL NEBULIZED (CONC) 5 MG, SODIUM CHLORIDE 0.9% NEBULIZ 3 ML INHALATION PRN ×2 (02:17)
[2018-07-16] MEDS: IPRATROPIUM-ALBUTEROL 3 ML NEB INHALATION PRN (03:01)
[2018-07-16] MEDS: HEPARIN SODIUM,PORCINE 5,000 UNIT/ML 1 ML VIAL SQ SCH ×2 (07:28→16:02)
[2018-07-16] MEDS: IPRATROPIUM-ALBUTEROL 3 ML NEB INHALATION SCH ×4 (07:32→19:33)
[2018-07-16] MEDS ORDERED: ALBUTEROL NEBULIZED (CONC) 5 MG, SODIUM CHLORIDE 0.9% NEBULIZ 3 ML INHALATION SCH ×2 (08:00)
[2018-07-16 08:39] LABS: ALT 46 U/L (21-72); AST 43 U/L (17-59); Albumin 3.3 g/dL (3.5-5.0); Alkaline Phosphatase 50 U/L (38-126); Anion Gap 9 mmol/L; Blood Urea Nitrogen 14 mg/dL (9-20); Calcium 8.5 mg/dL (8.4-10.2); Carbon Dioxide 24 mmol/L (22-30); Chloride 101 mmol/L (98-107); Creatine Kinase 930 U/L (55-170); Glucose 132 mg/dL (74-99); Potassium 4.6 mmol/L (3.5-5.1); Sodium 134 mmol/L (137-145); Total Bilirubin 1.2 mg/dL (0.2-1.3); Total Protein 6.2 g/dL (6.3-8.2)
[2018-07-16 08:52] LABS: Basophils # (A) 0.1 k/uL (0-0.2); Basophils % (A) 0 %; Eosinophils % (A) 0 %; HCT 42.6 % (39.0-53.0); Lymphocytes # (A) 1.1 k/uL (1.0-4.8); Lymphocytes % (A) 6 %; MCH 30.1 pg (25.0-35.0); MCHC 32.7 g/dL (31.0-37.0); MCV 92.1 fL (80.0-100.0); Monocytes # (A) 0.5 k/uL (0-1.0); Monocytes % (A) 3 %; Neutrophils # (A) 15.6 k/uL (1.3-7.7); Neutrophils % (A) 89 %; Platelet Count 190 k/uL (150-450); RBC 4.63 m/uL (4.30-5.90); RDW 12.8 % (11.5-15.5); WBC 17.5 k/uL (3.8-10.6)
[2018-07-16] MEDS: OSELTAMIVIR 75 MG CAP PO SCH ×2 (09:12→21:27)
[2018-07-16] MEDS: guaiFENesin 600 MG TABLET.ER PO SCH ×2 (09:17→21:27)
[2018-07-16] MEDS ORDERED: ALPRAZolam 0.25 MG TAB PO PRN (09:30)
--- NOTE | 2018-07-16 09:44 | P.CONS ---
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 He states for the past 3 months he has had respiratory problems. He had a recent hospitalization July 04 to July 05 which time he was found to have a left suprahilar mass. He was discharged on nebulizer treatments and Phenergan with codeine. He has had follow-up with Dr. Daniels in the office and received a steroid injection, oral steroids and is scheduled for PET scan on Friday. He then came into the emergency center on July 12 due to fevers up to 103, worsening cough, shortness of breath and was diagnosed with influenza A but not started on Tamiflu. Patient then came back to the emergency center yesterday for reevaluation as he continued to have body aches, fever up to 104, cough and chest pain, sweats and rigors. Patient has not been eating very much but he has been drinking water and Gatorade. He states he normally drinks about 1-1/2 gallons of water per day and has been trying to keep up with that. He states he is eating very little and has loose stool approximate 1 time per day. Patient's was also diagnosed with Influenza A and Bin the emergency center but was not placed on Tamiflu and her symptoms have resolved. Patient was found to have a white count of 21.9. Sodium was 128, creatinine 1.06. Blood sugar 209 and patient has not been diabetic. Total bilirubin 1.4, AST 65, ALT 55 and no [place] phosphatase 52. CK 1311. Troponin was negative. Chest x-ray shows large right upper lobe infiltrate. Patient received 1 L of IV fluids in the ER as well as clindamycin and was admitted to the [facility] floor. Review of Systems All systems: negative Constitutional: Reports anorexia, Reports chills, Reports fatigue, Reports fever, Reports lethargy, Reports malaise, Reports night sweats, Reports poor appetite, Reports sweats, Reports weakness Eyes: denies blurred vision, denies pain Ears, nose, mouth and throat: Reports headache, Denies dental pain, Denies dysphagia, Denies mouth pain, Denies nasal congestion, Denies nasal discharge, Denies sore throat, Denies vertigo Cardiovascular: Reports chest pain, Reports dyspnea on exertion, Denies leg edema, Denies lightheadedness, Denies shortness of breath, Denies syncope Respiratory: Reports cough, Reports dyspnea, Reports respiratory infections, Reports wheezing, Denies cough with sputum, Denies excessive sputum, Denies hemoptysis, Denies home oxygen Gastrointestinal: Reports diarrhea, Reports loss of appetite, Denies abdominal pain, Denies nausea, Denies vomiting Genitourinary: Denies dysuria, Denies urinary frequency, Denies urinary retention Musculoskeletal: Reports myalgias, Denies frequent falls, Denies gait dysfunction, Denies muscle weakness Integumentary: Denies pruritus, Denies rash, Denies wounds Neurological: Reports headaches, Denies aphasia, Denies change in mentation, De nies change in speech, Denies confusion, Denies gait dysfunction, Denies numbness, Denies seizures, Denies vertigo, Denies weakness Psychiatric: Denies anxiety, Denies depression Endocrine: Reports fatigue, Denies weight change Past Medical History Past Medical History: Hypertension Additional Past Medical History / Comment(s): Lumbar back pain, bells palsy, mass left lung, History of Any Multi-Drug Resistant Organisms: None Reported Past Surgical History: No Surgical Hx Reported Additional Past Surgical History / Comment(s): oral surgery, vasectomy, Past Anesthesia/Blood Transfusion Reactions: No Reported Reaction Past Psychological History: No Psychological Hx Reported Smoking Status: Former smoker Past Alcohol Use History: Rare Additional Past Alcohol Use History / Comment(s): Patient was a smoker of 2-3 packs per day for 14 years and quit 19 years ago. He denies any marijuana, illicit drug use or alcohol use. He lives at home with his and his stepson. He is self-employed. He he does heavy equipment repair and truck drives. He has been off work for the last 3 months due to exposure to nasal exhaust. There are 2 cats in the home. Past Drug Use History: None Reported - Past Family History Father Family Medical History: Renal Disease Additional Family Medical History / Comment(s): Mother and father both alive in their 70s with no major medical problems. Medications and Allergies Home Medications Medication Instructions Recorded Confirmed Type ALPRAZolam [Xanax] 0.25 mg PO QID PRN #12 tab 07/05/18 Rx Albuterol Inhaler [Ventolin Hfa 1 - 2 puff INHALATION Q6HR PRN #1 07/05/18 Rx Inhaler] inhaler Promethaz-Cod 6.25-10 mg/5 ml 5 ml PO Q4H PRN #250 ml 07/05/18 Rx [Phenergan with Codeine] Promethaz-Cod 6.25-10 mg/5 ml 5 ml PO Q4HR PRN 3 Days #90 ml 07/12/18 Rx [Phenergan with Codeine] predniSONE 50 mg PO DAILY #5 tablet 07/12/18 Rx Allergies Allergy/AdvReac Type Severity Reaction Status Date / Time No Known Allergies Allergy Verified 07/15/18 21:36 Physical Exam Vitals: Vital Signs Temp Pulse Pulse Resp BP BP Pulse Ox 07/16/18 07:32 76 07/16/18 07:13 98.9 F 74 18 125/64 89 L 07/16/18 03:13 80 07/16/18 03:01 76 07/16/18 02:09 18 07/16/18 00:34 98.0 F 75 16 130/79 92 L 07/15/18 23:31 98.9 F 70 18 111/63 92 L 07/15/18 21:07 99.1 F 78 16 117/72 97 Intake and Output 07/15/18 07/16/18 07/16/18 22:59 06:59 14:59 Intake Total 1957 Balance 1957 Intake: Intake, IV Titration 1957 Amount Clindamycin 600 mg In 50 Dextrose 5% in Water 50 ml @ 50 mls/hr IVPB ONCE STA Rx#:[id number] Sodium Chloride 0.9% 1, 908 000 ml @ 200 mls/hr IV . Q5H MARGARETTE Rx#:[id number] Sodium Chloride 0.9% 1, 1000 000 ml @ 999 mls/hr IV . Q1H1M ONE Rx#:[id number] Other: Voiding Method Toilet Weight 97.069 kg Gen: This is a 47-year-old male. He is sitting up in bed and appears to be uncomfortable due to frequent coughing. HEENT: Head is atraumatic, normocephalic. Pupils equal, round. Sclerae is anicteric. Conjunctiva pink. Mucous members of the mouth are moist. No thrush noted. NECK: Supple. No JVD. No lymphadenopathy. No thyromegaly. LUNGS: Scattered rhonchi throughout, mild expiratory wheeze throughout, increased wheezing to the right upper lung area. No intercostal retractions. HEART: Regular rate and rhythm. No murmur. ABDOMEN: Soft. Bowel sounds are present. No masses. No tenderness. EXTREMITIES: No pedal edema. No calf tenderness. Dorsalis pedis +2 bilaterally. NEUROLOGICAL: Patient is awake, alert and oriented x3. Cranial nerves 2 through 12 are grossly intact. Results Results: Laboratory Results WBC 17.5 k/uL (3.8-10.6) H 07/16/18 06:56 RBC 4.63 m/uL (4.30-5.90) 07/16/18 06:56 Hgb 14.0 gm/dL (13.0-17.5) 07/16/18 06:56 Hct 42.6 % (39.0-53.0) 07/16/18 06:56 MCV 92.1 fL (80.0-100.0) 07/16/18 06:56 MCH 30.1 pg (25.0-35.0) 07/16/18 06:56 MCHC 32.7 g/dL (31.0-37.0) 07/16/18 06:56 RDW 12.8 % (11.5-15.5) 07/16/18 06:56 Plt Count 190 k/uL (150-450) 07/16/18 06:56 Neutrophils % 89 % 07/16/18 06:56 Lymphocytes % 6 % 07/16/18 06:56 Monocytes % 3 % 07/16/18 06:56 Eosinophils % 0 % 07/16/18 06:56 Basophils % 0 % 07/16/18 06:56 Neutrophils # 15.6 k/uL (1.3-7.7) H 07/16/18 06:56 Lymphocytes # 1.1 k/uL (1.0-4.8) 07/16/18 06:56 Monocytes # 0.5 k/uL (0-1.0) 07/16/18 06:56 Eosinophils # 0.0 k/uL (0-0.7) 07/16/18 06:56 Basophils # 0.1 k/uL (0-0.2) 07/16/18 06:56 Sodium 134 mmol/L (137-145) L 07/16/18 06:56 Potassium 4.6 mmol/L (3.5-5.1) 07/16/18 06:56 Chloride 101 mmol/L (98-107) 07/16/18 06:56 Carbon Dioxide 24 mmol/L (22-30) 07/16/18 06:56 Anion Gap 9 mmol/L 07/16/18 06:56 BUN 14 mg/dL (9-20) 07/16/18 06:56 Creatinine 0.86 mg/dL (0.66-1.25) 07/16/18 06:56 Est GFR (CKD-EPI)AfAm >90 (>60 ml/min/1.73 sqM) 07/16/18 06:56 Est GFR (CKD-EPI)NonAf >90 (>60 ml/min/1.73 sqM) 07/16/18 06:56 Glucose 132 mg/dL (74-99) H 07/16/18 06:56 Calcium 8.5 mg/dL (8.4-10.2) 07/16/18 06:56 Total Bilirubin 1.2 mg/dL (0.2-1.3) 07/16/18 06:56 AST 43 U/L (17-59) 07/16/18 06:56 ALT 46 U/L (21-72) 07/16/18 06:56 Alkaline Phosphatase 50 U/L (38-126) 07/16/18 06:56 Creatine Kinase 930 U/L (55-170) H 07/16/18 06:56 Troponin I <0.012 ng/mL (0.000-0.034) 07/15/18 21:50 Total Protein 6.2 g/dL (6.3-8.2) L 07/16/18 06:56 Albumin 3.3 g/dL (3.5-5.0) L 07/16/18 06:56 CBC & Chem 7: 07/16/18 06:56 07/16/18 06:56 Labs: Abnormal Lab Results - Last 24 Hours (Table) 07/15/18 07/15/18 07/16/18 Range/Units 21:50 21:50 06:56 WBC 21.9 H 17.5 H (3.8-10.6) k/uL Neutrophils # 20.1 H 15.6 H (1.3-7.7) k/uL Lymphocytes # 0.7 L (1.0-4.8) k/uL Sodium 128 L (137-145) mmol/L Chloride 94 L (98-107) mmol/L Glucose 209 H (74-99) mg/dL Total Bilirubin 1.4 H (0.2-1.3) mg/dL AST 65 H (17-59) U/L Creatine Kinase 1311 H* (55-170) U/L Total Protein (6.3-8.2) g/dL Albumin (3.5-5.0) g/dL 07/16/18 Range/Units 06:56 WBC (3.8-10.6) k/uL Neutrophils # (1.3-7.7) k/uL Lymphocytes # (1.0-4.8) k/uL Sodium 134 L (137-145) mmol/L Chloride (98-107) mmol/L Glucose 132 H (74-99) mg/dL Total Bilirubin (0.2-1.3) mg/dL AST (17-59) U/L Creatine Kinase 930 H (55-170) U/L Total Protein 6.2 L (6.3-8.2) g/dL Albumin 3.3 L (3.5-5.0) g/dL Assessment and Plan Plan: This is a 47-year-old male patient who has unknown left suprahilar mass being worked up with Dr. Melanie Galvin and with scheduled PET scan on Friday. Patient presents with a new right-sided pneumonia and influenza. Patient started on Tamiflu and Zosyn for possible gram-negative pneumonia. Consult added for pulmonary medicine. Home medications of Phenergan and Xanax as well as Mucinex added. Protein shakes ordered. Continue supportive care. Further recommendations as patient progresses. The above dictated assessment and findings were discussed with Dr. Ritchie. The impression and plan of care have been directed as dictated. Radha Huynh nurse practitioner acting as scribe for Dr. Ritchie.
[2018-07-16] MEDS: PIPERACILLIN-TAZOBACTAM 3.375 GM in SODIUM CHLORIDE 0.9% 100 ML IVPB SCH ×2 (10:12→15:59)
--- NOTE | 2018-07-16 10:43 | P.HPIM ---
History of Present Illness This is a pleasant 47 years old male with past medical history of hypertension, Stewart's palsy, chronic back pain.left suprahilar mass. He is current smoker. He is a patient of Dr. Skinner. Patient got his insurance recently and he started seeking medical help for about 2 weeks ago for his chronic cough for 3 months. He had chest x-ray and CAT scan which shows right suprahilar mass which he follows with employee placement specialist and supposed to get PET scan tomorrow. Also patient was in the emergency room 6 days ago for upper respiratory symptoms. The Patient he got few medication including shot of steroids and he was sent home, however he has difficulty keeping things down because of decreased appetite. He was on liquid diet, and then he was spiking fever 102- 104. So he decided to come to the hospital again. Patient complaining also from dyspnea and congestive chest with nonproductive, however he denies chest pain. He has myalgia and arthralgia with loose bowel movement, minimal abdominal discomfort but no nausea vomiting. In the emergency room patient got 1 dose of Tamiflu and clindamycin. Infectious disease consult is appreciated and they started the patient on Tamiflu on Zosyn On admission his Vitas looks stable, however his oxygen saturating into 89-92% on room air. We'll provide oxygen therapy. He has leukocytosis of 17.5 K. Sodium was 128 (corrected for hyperglycemia, and a would be 1 3231 ) on admission is improved to 134. His sugar is on the high side 209 and 132. Increased creatinine kinase at 1300 coming down to 930 . Chest x-ray showing large right upper lobe infiltrate. Review of Systems CONSTITUTIONAL: No fever, no malaise, no fatigue. HEENT: No recent visual problems or hearing problems. Denied any sore throat. CARDIOVASCULAR: No orthopnea, PND, no palpitations, no syncope. PULMONARY: No shortness of breath, no cough, no hemoptysis. GASTROINTESTINAL: No diarrhea, no nausea, no vomiting, no abdominal pain. Normoactive bowel sounds. NEUROLOGICAL: No headaches, no weakness, no numbness. HEMATOLOGICAL: Denies any bleeding or petechiae. GENITOURINARY: Denies any burning micturition, frequency, or urgency. MUSCULOSKELETAL/RHEUMATOLOGICAL: Denies any joint pain, swelling, or any muscle pain. ENDOCRINE: Denies any polyuria or polydipsia. Past Medical History Past Medical History: Hypertension Additional Past Medical History / Comment(s): Lumbar back pain, bells palsy, mass left lung, History of Any Multi-Drug Resistant Organisms: None Reported Past Surgical History: No Surgical Hx Reported Additional Past Surgical History / Comment(s): oral surgery, vasectomy, Past Anesthesia/Blood Transfusion Reactions: No Reported Reaction Past Psychological History: No Psychological Hx Reported Smoking Status: Former smoker Past Alcohol Use History: Rare Additional Past Alcohol Use History / Comment(s): Patient was a smoker of 2-3 packs per day for 14 years and quit 19 years ago. He denies any marijuana, illicit drug use or alcohol use. He lives at home with his and his stepson. He is self-employed. He he does heavy equipment repair and truck drives. He has been off work for the last 3 months due to exposure to nasal exhaust. There are 2 cats in the home. Past Drug Use History: None Reported - Past Family History Father Family Medical History: Renal Disease Additional Family Medical History / Comment(s): Mother and father both alive in their 70s with no major medical problems. Medications and Allergies Home Medications Medication Instructions Recorded Confirmed Type Promethaz-Cod 6.25-10 mg/5 ml 5 ml PO Q4HR PRN 3 Days #90 ml 07/12/18 07/16/18 Rx [Phenergan with Codeine] Diclofenac Sodium [Voltaren] 50 mg PO BID 07/16/18 07/16/18 History Oseltamivir [Tamiflu] 75 mg PO Q12HR 07/16/18 07/16/18 History RX: Albuterol Inhaler [Ventolin 2 puff INHALATION Q6HR PRN 07/16/18 07/16/18 History Hfa Inhaler] RX: predniSONE See Taper PO DIRECTED 07/16/18 07/16/18 History Allergies Allergy/AdvReac Type Severity Reaction Status Date / Time No Known Allergies Allergy Verified 07/16/18 09:54 Physical Exam Vitals: Vital Signs Temp Pulse Pulse Resp BP BP Pulse Ox 07/16/18 07:32 76 07/16/18 07:13 98.9 F 74 18 125/64 89 L 07/16/18 03:13 80 07/16/18 03:01 76 07/16/18 02:09 18 07/16/18 00:34 98.0 F 75 16 130/79 92 L 07/15/18 23:31 98.9 F 70 18 111/63 92 L 07/15/18 21:07 99.1 F 78 16 117/72 97 Intake and Output 07/15/18 07/16/18 07/16/18 22:59 06:59 14:59 Intake Total 1957 Balance 1957 Intake: Intake, IV Titration 1957 Amount Clindamycin 600 mg In 50 Dextrose 5% in Water 50 ml @ 50 mls/hr IVPB ONCE STA Rx#:[id number] Sodium Chloride 0.9% 1, 908 000 ml @ 200 mls/hr IV . Q5H MARGARETTE Rx#:[id number] Sodium Chloride 0.9% 1, 1000 000 ml @ 999 mls/hr IV . Q1H1M ONE Rx#:[id number] Other: Voiding Method Toilet Toilet Weight 97.069 kg GENERAL: The patient is alert and oriented x3, not in any acute distress. Well developed, well nourished. HEENT: Pupils are round and equally reacting to light. EOMI. No scleral icterus. No conjunctival pallor. Normocephalic, atraumatic. No pharyngeal erythema. No thyromegaly. CARDIOVASCULAR: S1 and S2 present. No murmurs, rubs, or gallops. -PULMONARY: Chest is clear to auscultation, bilateral scattered wheezing and crackles. ABDOMEN: Soft, nontender, nondistended, normoactive bowel sounds. No palpable organomegaly. MUSCULOSKELETAL: No joint swelling or deformity. EXTREMITIES: No cyanosis, clubbing, or pedal edema. NEUROLOGICAL: Gross neurological examination did not reveal any focal deficits. SKIN: No rashes. Results CBC & Chem 7: 07/16/18 06:56 07/16/18 06:56 Labs: Abnormal Lab Results - Last 24 Hours (Table) 07/15/18 07/15/18 07/16/18 Range/Units 21:50 21:50 06:56 WBC 21.9 H 17.5 H (3.8-10.6) k/uL Neutrophils # 20.1 H 15.6 H (1.3-7.7) k/uL Lymphocytes # 0.7 L (1.0-4.8) k/uL Sodium 128 L (137-145) mmol/L Chloride 94 L (98-107) mmol/L Glucose 209 H (74-99) mg/dL Total Bilirubin 1.4 H (0.2-1.3) mg/dL AST 65 H (17-59) U/L Creatine Kinase 1311 H* (55-170) U/L Total Protein (6.3-8.2) g/dL Albumin (3.5-5.0) g/dL 07/16/18 Range/Units 06:56 WBC (3.8-10.6) k/uL Neutrophils # (1.3-7.7) k/uL Lymphocytes # (1.0-4.8) k/uL Sodium 134 L (137-145) mmol/L Chloride (98-107) mmol/L Glucose 132 H (74-99) mg/dL Total Bilirubin (0.2-1.3) mg/dL AST (17-59) U/L Creatine Kinase 930 H (55-170) U/L Total Protein 6.2 L (6.3-8.2) g/dL Albumin 3.3 L (3.5-5.0) g/dL Thrombosis Risk Factor Assmnt - Choose All That Apply Any of the Below Risk Factors Present?: Yes Each Factor Represents 1 point: Age 41-60 years Other Risk Factors: No Thrombosis Risk Factor Assessment Total Risk Factor Score: 1 Thrombosis Risk Factor Assessment Level: Low Risk Assessment and Plan Assessment: Right upper lobe pneumonia , mostly community acquired pneumonia versus postobstructive pneumonia acute hypoxic respiratory failure secondary to above Influenza pneumonia on Tamiflu left suprahilar mass being worked up before with scheduled PET scan on Friday. Plan: This is a pleasant 41 years old male who presents with influenza and pneumonia. Continue with breathing treatment, continue with antibiotic as per ID recommendation. Continue with oxygen and breathing therapy. Pulmonary team is been consulted.Labs and medication were reviewed.. Continue same treatment. Continue with symptomatic treatment. Resume home medication. Monitor lytes and vitals. DVT and GI prophylaxis. Further recommendations of the clinical course of the patient DVT prophylaxis: Subcutaneous heparin GI Prophylaxis: Pepcid Prognosis is guarded
--- NOTE | 2018-07-16 11:45 | P.CON ---
Consult Note - . 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 He states for the past 3 months he has had respiratory problems. He had a recent hospitalization July 04 to July 05 which time he was found to have a left suprahilar mass. He was discharged on nebulizer treatments and Phenergan with codeine. He has had follow-up with Dr. Daniels in the office and received a steroid injection, oral steroids and is scheduled for PET scan on Friday. He then came into the emergency center on July 12 due to fevers up to 103, worsening cough, shortness of breath and was diagnosed with influenza A but not started on Tamiflu. Patient then came back to the emergency center yesterday for reevaluation as he continued to have body aches, fever up to 104, cough and chest pain, sweats and rigors. Patient has not been eating very much but he has been drinking water and Gatorade. He states he normally drinks about 1-1/2 gallons of water per day and has been trying to keep up with that. He states he is eating very little and has loose stool approximate 1 time per day. Patient's was also diagnosed with Influenza A and Bin the emergency center but was not placed on Tamiflu and her symptoms have resolved. Patient was found to have a white count of 21.9. Sodium was 128, creatinine 1.06. Blood sugar 209 and patient has not been diabetic. Total bilirubin 1.4, AST 65, ALT 55 and Alk phosphatase 52. CK 1311. Troponin was negative. Chest x-ray shows large right upper lobe infiltrate. Patient received 1 L of IV fluids in the ER as well as clindamycin and was admitted to the [facility] floor. Please see the consult note as dictated by SENIOR COMMUNICATIONS SPECIALIST Nakul Radha Huynh. 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 He said difficulties with increasing amounts of cough. He's also had some difficulty with straining of his voice because of all the coughing. Is related he presented to Hospital evaluations were performed including a CT angiogram which revealed evidence of the left upper lobe mass. He has subsequently been by pulmonary critical care and workup is in process regarding the mass and what appears to be some lymphadenopathy in the region. Outpatient PET scan is in process and plans for biopsy based on PET scan findings. The patient again became ill and presented to the emergency center, he had been not feeling well for about 4 days and evaluation in the emergency center showed evidence of influenza A positive status, he was treated symptomatically and discharged home. He now presents feeling very poorly. He's had some worsening shortness of breath his cough became pervasive and disruptive, continued to have fever and body aches and presented again to hospital. There is evidence of a new right upper lobe infiltration and constantly has been admitted. At this time the patient remains symptomatically had a fever of 103 and consequently would continue treatment with Tamiflu for his influenza. However the pneumonia doesn't appear to be new and does not have classic radiological findings of viral pneumonia and constantly is concerned to a bacterial pneumonia. The pneumonia he is on the contralateral side and there is no e vidence of any obstruction by the prior computed tomography scan. We'll treat for staph strep and gram-negative pathogens with Zosyn for now while cultures are in process. The patient does have an elevated CK which could be directly related to the influenza A, myositis is related to influenza H1 N1 activity. The patient has been having anxiety and his Xanax will be continued. We'll continue cough suppressant due to his excessive amount of coughing. Unclear if this patient will be well enough to have his outpatient PET scan on Friday. I agree with the evaluation assessment and plan as dictated by SENIOR COMMUNICATIONS SPECIALIST Mrs. Radha Huynh.
[2018-07-16] MEDS: PROMETHAZ-COD 6.25-10 MG/5 ML 5 ML CUP PO PRN (13:55)
[2018-07-16 15:15] VITALS: BMI 34.5
[2018-07-16] MEDS: methylPREDNISolone SOD SUCCI 40 MG/ML 1 ML VIAL IV SCH (16:00)
--- NOTE | 2018-07-16 16:36 | CONS ---
CONSULTATION This is a 47-year-old male with a history of a lung mass. He has a left parahilar mass and was previously seen by my partner for the mass. More recently, he was evaluated and found to have influenza and started on Tamiflu. In addition, a chest x-ray revealed a right upper lung pneumonia. The patient was scheduled to have a PET scan this Friday and then see thoracic surgery for either a mediastinoscopy or left parasternal median sternotomy, but apparently because he is in the hospital now he may not be able to make a PET scan on Friday. Anyway, when he came in, his symptoms include shortness of breath, cough which is mostly dry, fever, chills and muscle aches and joint aches. The patient was already started on Tamiflu and he had been on Tamiflu for a couple of days. Currently, the patient is a nonsmoker. Quit a number years back. Again, did see my partner both in the hospital and also in the office. The patient is feeling a bit better today than he did yesterday. Still just not feeling back to baseline. HOME MEDICATIONS: Include Xanax, Ventolin inhaler, Phenergan with codeine cough syrup and prednisone. He is also on Tamiflu. ALLERGIES: Denied. MEDICAL HISTORY: Probable COPD, previous history of tobacco use and hypertension. The patient was also discovered to have a left perihilar mass and on this admission was diagnosed as having both influenza and a right upper lobe pneumonia. SURGICAL HISTORY: Includes oral surgery and vasectomy. SOCIAL HISTORY: Positive for previous tobacco use, although he quit a number of years back. Alcohol use is rare. There is no illicit drug use. FAMILY HISTORY: Positive for chronic renal disease. REVIEW OF SYSTEMS: Constitutional: Fever, chills. Neurologic negative. HEENT negative. Cardiovascular negative. Pulmonary: Shortness of breath, cough, nonproductive. GI negative. negative. Rheumatologic negative. Immunologic negative. ENDOCRINOLOGIC: Negative. DERMATOLOGIC: Negative. The patient did have muscle aches and joint aches as well. PHYSICAL EXAMINATION: Current vital signs are reviewed. His temperature is 98.9, heart rate 76, respiratory rate 18, blood pressure 125/64. Mean 84 and room air saturation 89%. He is currently on a couple L. Appears in no acute distress. No respiratory distress. No conversational dyspnea. No use of accessory muscles and no audible wheezes. The patient is lying on his right side and appears to be relatively comfortable. HEENT examination is grossly unremarkable. Mucous membranes are moist. No oral lesions. NECK: Supple. Full range of motion. No adenopathy or thyromegaly. Neck veins are flat. Cardiovascular examination reveals regular rhythm and rate. Heart rate in mid 70s. S1, S2 normal. LUNGS: Some mild coarse expiratory rhonchi. There is some mild expiratory wheezes. Breath sounds equal bilaterally. There is slight prolongation. There was no crackles. ABDOMEN: Soft. Bowel sounds are heard. Extremities are intact. No cyanosis, clubbing, or edema. Skin is without rash. Neurologic examination is brief but nonfocal. LABS: Reviewed. White count 17.5, hemoglobin 14, hematocrit 42.6, platelet count 190,000. Sodium 134, potassium 4.6, chloride 101, CO2 of 24. BUN and creatinine were 14 and 0.86. CK was 13,011, repeat was 930. Albumin 3.3. X-RAY: Chest x-ray shows a large right upper lobe infiltrate. The mass in the left lung was seen primarily on the CT scan. MEDICATIONS: Medications are reviewed. The patient is currently on Tylenol, Xanax, Pepcid, Mucinex, heparin subcu, updrafts with DuoNeb, Narcan, Tamiflu, Zosyn, promethazine with codeine cough syrup. ASSESSMENT: 1. Pneumonia, right upper lobe, community-acquired. 2. Left hilar mass, rule out bronchogenic carcinoma. 3. Previous history of tobacco use. 4. Probable underlying chronic obstructive pulmonary disease. 5. Vague history of hypertension. 6. History of anxiety. 7. History of Stewart's palsy. 8. Acute influenza A infection. PLAN: The patient's medications are reviewed. The patient will be given some steroids for the bronchospasm he is exhibiting. Reschedule a PET scan from this Friday to the next Friday. We will continue with antibiotics as per ID. We will continue with updrafts. Should continue with Tamiflu for full 5 days. No additional recommendations are made. Prognosis is guarded. The plan was to send him to thoracic surgery after the PET scan to have either a mediastinoscopy or left parasternal median sternotomy. MMODL / IJN: [id number] / [facility]
[2018-07-16] MEDS: FAMOTIDINE 20 MG/2 ML VIAL IV SCH (21:27)
[2018-07-17] MEDS: PIPERACILLIN-TAZOBACTAM 3.375 GM in SODIUM CHLORIDE 0.9% 100 ML IVPB SCH ×3 (00:11→15:57)
[2018-07-17] MEDS: HEPARIN SODIUM,PORCINE 5,000 UNIT/ML 1 ML VIAL SQ SCH ×3 (00:12→15:02)
[2018-07-17] MEDS: methylPREDNISolone SOD SUCCI 40 MG/ML 1 ML VIAL IV SCH ×3 (00:12→15:57)
[2018-07-17] MEDS: SODIUM CHLORIDE 0.9% 1,000 ML IV SCH ×4 (01:10→15:57)
[2018-07-17] MEDS: PROMETHAZ-COD 6.25-10 MG/5 ML 5 ML CUP PO PRN ×2 (01:16→08:49)
[2018-07-17] MEDS: IPRATROPIUM-ALBUTEROL 3 ML NEB INHALATION PRN (02:17)
[2018-07-17] MEDS: IPRATROPIUM-ALBUTEROL 3 ML NEB INHALATION SCH ×4 (07:15→19:31)
[2018-07-17] MEDS: FAMOTIDINE 20 MG/2 ML VIAL IV SCH (07:45)
[2018-07-17] MEDS: guaiFENesin 600 MG TABLET.ER PO SCH (07:45)
[2018-07-17] MEDS: OSELTAMIVIR 75 MG CAP PO SCH (07:45)
[2018-07-17 08:09] VITALS: BP 166/90; RESP 30; TEMP 97.8
[2018-07-17 08:32] LABS: Basophils % (A) 0 %; Eosinophils % (A) 0 %; HCT 44.5 % (39.0-53.0); HGB 14.4 gm/dL (13.0-17.5); Lymphocytes # (A) 0.8 k/uL (1.0-4.8); Lymphocytes % (A) 6 %; MCH 30.3 pg (25.0-35.0); MCHC 32.3 g/dL (31.0-37.0); MCV 93.7 fL (80.0-100.0); Mean Platelet Volume 8.6; Monocytes # (A) 0.4 k/uL (0-1.0); Monocytes % (A) 4 %; Neutrophils # (A) 11.1 k/uL (1.3-7.7); Neutrophils % (A) 89 %; Platelet Count 244 k/uL (150-450); RBC 4.75 m/uL (4.30-5.90); RDW 12.9 % (11.5-15.5); WBC 12.5 k/uL (3.8-10.6)
[2018-07-17] MEDS ORDERED: HYDROcodone/APAP 5-325MG 1 EACH TAB PO PRN (10:14)
[2018-07-17] MEDS ORDERED: ALPRAZolam 0.5 MG TAB PO PRN (10:16)
--- NOTE | 2018-07-17 12:00 | XR ---
EXAMINATION TYPE: XR chest 1V DATE OF EXAM: 07/17/2018 COMPARISON: Prior chest x-ray 07/15/2017 HISTORY: Abnormal chest x-ray, cough TECHNIQUE: Single frontal view of the chest is obtained. FINDINGS: There has been progression of the patient's airspace disease. Nodularity persists left anibal g. No pneumothorax or pleural effusion. Heart size is stable. IMPRESSION: Progression of airspace disease. Left upper lobe lung mass. Follow-up recommended.
--- NOTE | 2018-07-17 12:46 | P.PN ---
Subjective Progress Note Date: 07/17/18 Principal diagnosis: Acute right upper lobe pneumonia, community-acquired, left hilar mass, rule out bronchogenic carcinoma This is a 47-year-old white male patient that was admitted to the hospital on 07/15/2018, with complaints of shortness of breath, cough, fever, chills, muscle aches and joint aches. Patient tested positive for influenza a, and his chest x-ray showed a large right upper lobe infiltrate in addition to the previously noted left hilar mass. Patient was started on antibiotic coverage, Tamiflu, and Zosyn, IV steroids, and today on 07/17/2018 patient seen and follow-up on medical surgical floor. He was weaned off the Ventimask, he is currently on 2 L per nasal cannula his pulse ox is 92%, afebrile, hemodynamically patient is stable. Cough has been dry, and patient has not been able to produce a sputum for culture. Follow-up chest x-ray was done that showed progression of airspace disease in the right upper lobe. Labs have been reviewed, and there is trending down with his leukocytosis, white blood cell count was 12.5, hemoglobin is 14.4, creatinine kinase is down to 616. Patient is resting in bed, he seems to be somewhat agitated and upset, he is demanding his IV fluids to be increased, they're currently infusing at a rate of 200 ML per hour, he states then he to be increased because he normally drinks a lot of water. He wants his breathing treatments increased, to at least 6 times per day, currently at 4 times a day and every 2 hours as needed. He wants to be "knocked out" in between activities and medications, so he can "rest and heal". he seems to be extremely dissatisfied with the care he is receiving here. Clinically no acute distress. Pulse ox on 2 L per nasal cannula was 92%. No distress, no conversational dyspnea, no use of accessory muscles of breathing, no wheezing, no rhonchi, some scattered expiratory rhonchi Objective - Vital Signs Vital signs: Vital Signs Temp 97.8 F 07/17/18 08:04 Pulse 88 07/17/18 11:46 Resp 30 H 07/17/18 08:04 BP 166/90 07/17/18 08:04 Pulse Ox 92 L 07/17/18 08:04 Intake & Output 07/16/18 07/17/18 07/17/18 18:59 06:59 18:59 Intake Total 500 2400 Balance 500 2400 Weight 97.069 kg Intake: Intake, IV Titration 500 2400 Amount Piperacillin-Tazobactam 3 100 200 .375 gm In Sodium Chloride 0.9% 100 ml @ 25 mls/hr IVPB Q8HR MARGARETTE Rx# :[id number] Sodium Chloride 0.9% 1, 400 2200 000 ml @ 200 mls/hr IV . Q5H MARGARETTE Rx#:[id number] Other: Voiding Method Toilet Toilet - Exam GENERAL EXAM: Alert, 47-year-old male, currently on 2 L per nasal cannula, a bit agitated, comfortable in no apparent distress. HEAD: Normocephalic/atraumatic. EYES: Normal reaction of pupils, equal size. Conjunctiva pink, sclera white. NOSE: Clear with pink turbinates. THROAT: No erythema or exudates. NECK: No masses, no JVD, no thyroid enlargement, no adenopathy. CHEST: No chest wall deformity. Symmetrical expansion. LUNGS: Equal air entry with few scattered rhonchi, no significant wheezing CVS: Regular rate and rhythm, normal S1 and S2, no gallops, no murmurs, no rubs ABDOMEN: Soft, nontender. No hepatosplenomegaly, normal bowel sounds, no guarding or rigidity. EXTREMITIES: No clubbing, no edema, no cyanosis, 2+ pulses and upper and lower extremities. MUSCULOSKELETAL: Muscle strength and tone normal. SPINE: No scoliosis or deformity SKIN: No rashes CENTRAL NERVOUS SYSTEM: Alert and oriented -3. No focal deficits, tone is normal in all 4 extremities. PSYCHIATRIC: Alert and oriented -3. Appropriate affect. Intact judgment and insight. - Labs CBC & Chem 7: 07/17/18 07:41 07/16/18 06:56 Labs: Abnormal Lab Results - Last 24 Hours (Table) 07/17/18 07/17/18 Range/Units 07:41 07:41 WBC 12.5 H (3.8-10.6) k/uL Neutrophils # 11.1 H (1.3-7.7) k/uL Lymphocytes # 0.8 L (1.0-4.8) k/uL Creatine Kinase 616 H (55-170) U/L Assessment and Plan Plan: Assessment: #1. Acute hypoxemic respiratory failure secondary to acute right upper lobe pneumonia, community acquired #2. Left hilar mass, rule out bronchogenic carcinoma, it scan of the chest showed 3.2 x 2.3 cm mass in the left suprahilar area, central in location very close to the mediastinum without any significant mediastinal lymphadenopathy. There was one suspicious lymph node in the prevascular area. The lesion is not fully accessible to biopsy it is very close to the mediastinum and almost abutting the mediastinum. #3. Acute influenza A infection on Tamiflu #4. Probable underlying COPD with previous history of tobacco use #5. Hypertension Plan: Continue current antibiotic coverage, ID service is involved, today's chest x- ray has been reviewed by Dr. White, shows worsening right upper lobe airspace disease, the patient remains stable clinically. Continue breathing treatments, continue IV Solu-Medrol. Patient seems to be quite dissatisfied with his care that he is receiving here, and in addition patient could've hilar mass would be difficult to reach for biopsy by bronchoscopy, we suggest the patient transferred to a tertiary care facility, we were told the patient has refused transfer. Continue with current medical treatment. We'll continue to follow I performed a history & physical examination of the patient and discussed their management with my nurse practitioner, Juanis Remy. I reviewed the nurse practitioner's note and agree with the documented findings and plan of care. Lung sounds are positive for scattered rhonchi The findings and the impression was discussed with the patient. I attest to the documentation by the nurse practitioner. Time with Patient: Less than 30
--- NOTE | 2018-07-17 18:49 | P.DS ---
Providers Date of admission: 07/15/18 22:38 Attending physician: Ervin Mosqueda Consults: 07/16/18 00:49 Consult Physician Routine Consulting Provider: Chandra Ritchie Consult Reason/Comments: INFLUENZA A, WITH RIGHT LOBE OBSTRUCTIVE PNEUMONIA Do you want consulting provider notified?: Yes, Notify in am 07/16/18 09:11 Consult Physician Routine Consulting Provider: Sincere White Consult Reason/Comments: lung mass, pn, influenza Do you want consulting provider notified?: Yes Primary care physician: Turner Tripathi [facility] Course: Dx: Right upper lobe pneumonia , mostly community acquired pneumonia versus postobstructive pneumonia acute hypoxic respiratory failure secondary to above Influenza pneumonia on Tamiflu left suprahilar mass being worked up before with scheduled PET scan on Friday. Possible rhabdomyolysis on IV fluids Hospital course This is a pleasant 47 years old male with past medical history of hypertension, Stewart's palsy, chronic back pain.left suprahilar mass. He is current smoker. He is a patient of Dr. Skinner. Patient got his insurance recently and he started seeking medical help for about 2 weeks ago for his chronic cough for 3 months. He had chest x-ray and CAT scan which shows left suprahilar mass which he follows with leather goods assembler and supposed to get PET scan on this coming Friday07/18/18. However patient started having progressive dyspnea, he was in the emergency room 6 days ago for upper respiratory symptoms. The Patient he got few medication and he was sent home, however he has difficulty keeping things down because of decreased appetite. He was on liquid diet, and then he was spiking fever 102-104. So he decided to come to the hospital again. Patient complaining also from dyspnea and congestive chest with nonproductive cough, however he denies chest pain. He has myalgia and arthralgia with loose bowel movement, minimal abdominal discomfort but no nausea vomiting. His influenza test came back positive and on the chest x-ray he has right upper lobe pneumonia . Patient has been evaluated by pulmonary and infectious disease service. And he was started on Tamiflu and Zosyn, as well as Solu-Medrol. Also he was provided with normal saline at 200 mL per hour for he has elevated creatinine kinase at 1311, coming down to 616. However today patient has more progressive dyspnea and he felt worse. Repeat chest x-ray showing progression of air space disease, with left upper lobe lung mass as per radiologist's report. Patient has been evaluated by pulmonary team. Pulmonary team recommended patient be transferred to a tertiary care center. Patient and family were refusing to be transverse in the first place. I went and explained the situation for them including the patient himself, and the and daughter at bedside upon patient request and approval. After explaining the clinical conditions and the recommendation of the leather goods assembler, and they agreed for transferring the patient.. All their questions were answered to their satisfaction. Problems and management plan was discussed with the patient and he verbalized understanding and acceptance. Family at bedside I discussed the case with the advertising statistical clerk fellow Dr. Felder, who accepted the patient with the hospitalist Dr. Oshea. Patient was found stable to be transferred to [facility] been guarded prognosis. Patient agrees to be transferred Please refer to today's note for more details and physical examination Time spent more than 35 minutes Patient Condition at Discharge: Stable Plan - Discharge Summary Discharge Rx Participant: No New Discharge Prescriptions: No Action Promethaz-Cod 6.25-10 mg/5 ml [Phenergan with Codeine] 5 ml PO Q4HR PRN 3 Days #90 ml PRN Reason: Cough Diclofenac Sodium [Voltaren] 50 mg PO BID Oseltamivir [Tamiflu] 75 mg PO Q12HR predniSONE See Taper PO DIRECTED Albuterol Inhaler [Ventolin Hfa Inhaler] 2 puff INHALATION Q6HR PRN PRN Reason: Shortness Of Breath Or Wheezing Discharge Medication List Promethaz-Cod 6.25-10 mg/5 ml [Phenergan with Codeine] 5 ml PO Q4HR PRN 3 Days #90 ml 07/12/18 [Rx] Albuterol Inhaler [Ventolin Hfa Inhaler] 2 puff INHALATION Q6HR PRN 07/16/18 [History] Diclofenac Sodium [Voltaren] 50 mg PO BID 07/16/18 [History] Oseltamivir [Tamiflu] 75 mg PO Q12HR 07/16/18 [History] predniSONE See Taper PO DIRECTED 07/16/18 [History] Follow up Appointment(s)/Referral(s): Deuce Tompkins MD [Primary Care Provider] - 1-2 days [facility] [NON-STAFF] - As Needed (nebulizer) Activity/Diet/Wound Care/Special Instructions: PET scan July 25 at 12p, arrival time 11:30am
[2018-07-17 19:44] VITALS: PULSE 118
[2018-07-17] MEDS ORDERED: FAMOTIDINE 20 MG TAB PO SCH (21:00)
--- NOTE | 2018-07-17 21:27 | P.PN ---
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 He states for the past 3 months he has had respiratory problems. He had a recent hospitalization July 04 to July 05 which time he was found to have a left suprahilar mass. He was discharged on nebulizer treatments and Phenergan with codeine. He has had follow-up with Dr. Daniels in the office and received a steroid injection, oral steroids and is scheduled for PET scan on Friday. He then came into the emergency center on July 12 due to fevers up to 103, worsening cough, shortness of breath and was diagnosed with influenza A but not started on Tamiflu. Patient then came back to the emergency center yesterday for reevaluation as he continued to have body aches, fever up to 104, cough and chest pain, sweats and rigors. Patient has not been eating very much but he has been drinking water and Gatorade. He states he normally drinks about 1-1/2 gallons of water per day and has been trying to keep up with that. He states he is eating very little and has loose stool approximate 1 time per day. Patient's was also diagnosed with Influenza A and Bin the emergency center but was not placed on Tamiflu and her symptoms have resolved. Patient was found to have a white count of 21.9. Sodium was 128, creatinine 1.06. Blood sugar 209 and patient has not been diabetic. Total bilirubin 1.4, AST 65, ALT 55 and no [place] phosphatase 52. CK 1311. Troponin was negative. Chest x-ray shows large right upper lobe infiltrate. Patient received 1 L of IV fluids in the ER as well as clindamycin and was admitted to the [facility] floor. 07/17/2018 the patient is feeling poorly today. His dyspnea has worsened and he was having increasing coughing. The patient was very discontent with his current sedative medications. He did not want codeine he wanted tramadol instead for pain control. They did not believe that Mucinex was of any help. He wanted more frequent respiratory treatments and wanted high flow oxygen to ma ke him feel better. His of the patient's chest x-ray was worsened today and he has been seen by pulmonary critical care. Given his left hilar tumor and regional lymphadenopathy, need for surgical biopsy in face of the worsening pneumonia the patient is to be transferred to a tertiary center for in tervention. Objective - Vital Signs Vital signs: Vital Signs Temp 97.8 F 07/17/18 08:04 Pulse 118 H 07/17/18 19:40 Resp 30 H 07/17/18 08:04 BP 166/90 07/17/18 08:04 Pulse Ox 94 L 07/17/18 19:31 Intake & Output 07/17/18 07/17/18 07/18/18 06:59 18:59 06:59 Intake Total 2400 2140 Balance 2400 2140 Intake: Intake, IV Titration 2400 1700 Amount Piperacillin-Tazobactam 3 200 100 .375 gm In Sodium Chloride 0.9% 100 ml @ 25 mls/hr IVPB Q8HR MARGARETTE Rx# :[id number] Sodium Chloride 0.9% 1, 2200 1600 000 ml @ 200 mls/hr IV . Q5H MARGARETTE Rx#:[id number] Oral 440 Other: Voiding Method Toilet - Exam Gen: This is a 47-year-old male. He is standing next to his bed, he has oxygen by mask, relating that nasal cannula doesn't deliver him enough oxygen. He relates since receiving oxygen by mask is much less short of breath and is coughing is improved. HEENT: Head is atraumatic, normocephalic. Pupils equal, round. Sclerae is anicteric. Conjunctiva pink. Mucous members of the mouth are moist. No thrush noted. NECK: Supple. No JVD. No lymphadenopathy. No thyromegaly. LUNGS: Scattered rhonchi throughout, mild expiratory wheeze throughout, increased wheezing to the right upper lung area. Evidence of crackles and few bronchial sounds to the right posterior mid zone HEART: Regular rate and rhythm. No murmur. ABDOMEN: Soft. Bowel sounds are present. No masses. No tenderness. EXTREMITIES: No pedal edema. No calf tenderness. Dorsalis pedis +2 bilaterally. NEUROLOGICAL: Patient is awake, alert and oriented x3. Mildly agitated - Labs CBC & Chem 7: 07/17/18 07:41 07/16/18 06:56 Labs: Abnormal Lab Results - Last 24 Hours (Table) 07/17/18 07/17/18 Range/Units 07:41 07:41 WBC 12.5 H (3.8-10.6) k/uL Neutrophils # 11.1 H (1.3-7.7) k/uL Lymphocytes # 0.8 L (1.0-4.8) k/uL Creatine Kinase 616 H (55-170) U/L Laboratory Results WBC 12.5 k/uL (3.8-10.6) H 07/17/18 07:41 RBC 4.75 m/uL (4.30-5.90) 07/17/18 07:41 Hgb 14.4 gm/dL (13.0-17.5) 07/17/18 07:41 Hct 44.5 % (39.0-53.0) 07/17/18 07:41 MCV 93.7 fL (80.0-100.0) 07/17/18 07:41 MCH 30.3 pg (25.0-35.0) 07/17/18 07:41 MCHC 32.3 g/dL (31.0-37.0) 07/17/18 07:41 RDW 12.9 % (11.5-15.5) 07/17/18 07:41 Plt Count 244 k/uL (150-450) 07/17/18 07:41 Neutrophils % 89 % 07/17/18 07:41 Lymphocytes % 6 % 07/17/18 07:41 Monocytes % 4 % 07/17/18 07:41 Eosinophils % 0 % 07/17/18 07:41 Basophils % 0 % 07/17/18 07:41 Neutrophils # 11.1 k/uL (1.3-7.7) H 07/17/18 07:41 Lymphocytes # 0.8 k/uL (1.0-4.8) L 07/17/18 07:41 Monocytes # 0.4 k/uL (0-1.0) 07/17/18 07:41 Eosinophils # 0.0 k/uL (0-0.7) 07/17/18 07:41 Basophils # 0.0 k/uL (0-0.2) 07/17/18 07:41 Sodium 134 mmol/L (137-145) L 07/16/18 06:56 Potassium 4.6 mmol/L (3.5-5.1) 07/16/18 06:56 Chloride 101 mmol/L (98-107) 07/16/18 06:56 Carbon Dioxide 24 mmol/L (22-30) 07/16/18 06:56 Anion Gap 9 mmol/L 07/16/18 06:56 BUN 14 mg/dL (9-20) 07/16/18 06:56 Creatinine 0.86 mg/dL (0.66-1.25) 07/16/18 06:56 Est GFR (CKD-EPI)AfAm >90 (>60 ml/min/1.73 sqM) 07/16/18 06:56 Est GFR (CKD-EPI)NonAf >90 (>60 ml/min/1.73 sqM) 07/16/18 06:56 Glucose 132 mg/dL (74-99) H 07/16/18 06:56 Calcium 8.5 mg/dL (8.4-10.2) 07/16/18 06:56 Total Bilirubin 1.2 mg/dL (0.2-1.3) 07/16/18 06:56 AST 43 U/L (17-59) 07/16/18 06:56 ALT 46 U/L (21-72) 07/16/18 06:56 Alkaline Phosphatase 50 U/L (38-126) 07/16/18 06:56 Creatine Kinase 616 U/L (55-170) H 07/17/18 07:41 Troponin I <0.012 ng/mL (0.000-0.034) 07/15/18 21:50 Total Protein 6.2 g/dL (6.3-8.2) L 07/16/18 06:56 Albumin 3.3 g/dL (3.5-5.0) L 07/16/18 06:56 Assessment and Plan (1) Lung mass Status: Acute Code(s): R91.8 - OTHER NONSPECIFIC ABNORMAL FINDING OF LUNG FIELD SNOMED Code(s): 033356971 (2) Influenza A Narrative/Plan: 47-year-old male who has a known history of tobacco use as well as 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 He said difficulties with increasing amounts of cough. He's also had some difficulty with straining of his voice because of all the coughing. Is related he presented to Hospital e valuations were performed including a CT angiogram which revealed evidence of the left upper lobe mass. He has subsequently been by pulmonary critical care and workup is in process regarding the mass and what appears to be some lymphadenopathy in the region. Outpatient PET scan is in process and plans for biopsy based on PET scan findings. The patient again became ill and presented to the emergency center, he had been not feeling well for about 4 days and evaluation in the emergency center showed evidence of influenza A positive status, he was treated symptomatically and discharged home. He now presents feeling very poorly. He's had some worsening shortness of breath his cough became pervasive and disruptive, continued to have fever and body aches and presented again to hospital. There is evidence of a new right upper lobe infiltration and constantly has been admitted. At this time the patient remains symptomatically had a fever of 103 and consequently would continue treatment with Tamiflu for his influenza. However the pneumonia doesn't appear to be new and does not have classic radiological findings of viral pneumonia and constantly is concerned to a bacterial pneumonia. The pneumonia he is on the contralateral side and there is no evidence of any obstruction by the prior computed tomography scan. We'll treat for staph strep and gram-negative pathogens with Zosyn for now while cultures are in process. The patient does have an elevated CK which could be directly related to the influenza A, myositis is related to influenza H1 N1 activity. The patient has been having anxiety and his Xanax will be continued. We'll continue cough suppressant due to his excessive amount of coughing. Unclear if this patient will be well enough to have his outpatient PET scan on Friday. 07/17/2018 the patient has had a difficult day. He is much more short of breath than he was in his cough was also uncontrolled. Now with respiratory treatments, oxygen by mask the patient has settled down and is feeling somewhat better. He does have a level of agitation is likely in the basis of his underlying anxiety from his undiagnosed lung tumor, and the corticosteroids that he is receiving that are likely causing him to have agitation. Regardless the patient is having some worsening of his status and is recommended that he transfers to [facility] for evaluation by the thoracic team. Goal is to proceed to biopsy of the lung mass as quickly as possible so that initiation of therapy as soon as possible can occur. The patient does relate that he thinks it may simply be an infection in his chest. We discussed that the radiological findings at this time are more consistent with a mass. Certainly further evaluations are required. Continue treatment of his influenza A. Cultures are negative and once are negative antibiotic therapy may be discontinued unless there are deep lung samples if further guide therapy. Status: Acute Code(s): J10.1 - FLU DUE TO OTH IDENT INFLUENZA VIRUS W OTH RESP MANIFEST SNOMED Code(s): 804006725
== END 2018-07-17 07:45 | disposition short-term general hospital (02) | DRG 193 ==
LOC: EC 20:52 → 4SSUR 22:38
PROVIDERS: ADMIT Hospitalist; ATTEND Hospitalist
DX: J10.08 Influenza due to other identified influenza virus with other specified pneumonia (principal); J96.01 Acute respiratory failure with hypoxia; E87.1 Hypo-osmolality and hyponatremia; M62.82 Rhabdomyolysis; J18.8 Other pneumonia, unspecified organism; J44.0 Chronic obstructive pulmonary disease with (acute) lower respiratory infection; F06.4 Anxiety disorder due to known physiological condition; I10 Essential (primary) hypertension; G89.29 Other chronic pain; M54.5 Low back pain; R73.9 Hyperglycemia, unspecified; R91.8 Other nonspecific abnormal finding of lung field; M60.9 Myositis, unspecified; R59.1 Generalized enlarged lymph nodes; R45.1 Restlessness and agitation; T38.0X5A Adverse effect of glucocorticoids and synthetic analogues, initial encounter; Z79.899 Other long term (current) drug therapy; Z87.891 Personal history of nicotine dependence; Z84.1 Family history of disorders of kidney and ureter
CPT/HCPCS: 36415; 71045; 71046; 80053; 82550; 84484; 85025; 94640; 96361; 96374; 99284

== ENCOUNTER → 2018-08-24 | Outpatient (CLI) | payer OTHER ==
--- NOTE | 2018-08-24 13:36 | MR ---
EXAMINATION TYPE: MR brain wo/w con DATE OF EXAM: 08/24/2018 COMPARISON: PET/CT dated 07/25/2016 HISTORY: Lung cancer, mets TECHNIQUE: Multiplanar, multisequence images of the brain and brainstem is performed without and with IV contras t, utilizing 9.5 mL intravenous Gadavist . FINDINGS: Diffusion weighted images demonstrate no evidence of a recent infarct or other diffusion ab normality. There is no extra-axial fluid collection. Patchy areas of T2/FLAIR hyperintensity are see n within the periatrial/periventricular white matter. The largest focus measures 4 mm on axial FLAIR fat-sat image 19. Few other scattered foci are seen that measure less than 4 mm. There is a signal ab normality within the left frontal lobe at the ventral aspect of the precentral gyrus on FLAIR image 2 2 that corresponds to a rounded focus of enhancement measuring 2.5 mm. This is question to be extra-a xial on sagittal postcontrast T1-weighted series 601 image 35 and coronal image 47. Very small distal aneurysm/mycotic aneurysm is possible. MRA is recommended. If no small aneurysm is seen this lesion then may represent a solitary focus of metastasis. The ventricular system and cisternal spaces are normal in size and appearance. The brain volume is a ge appropriate. Midline structures demonstrate normal morphology other than an incidentally noted 4 mm nonenhancing p ineal gland cyst. Cerebral aqueduct is patent. The craniocervical junction appears within normal limi ts. The dural venous sinuses appear patent. Scant mucosal thickening is seen within the inferior max illary sinuses and ethmoid sinuses. There is mild leftward nasal septal deviation noted. Frontal sinu ses are hypoplastic. The remaining visualized sinuses and mastoid air cells are clear and the globes are intact. IMPRESSION: 1. 2.5 mm rounded focus of left frontal enhancement abutting the ventral aspect of the precentral gyr us appears extra-axial and could represent a small distal mycotic aneurysm. MRA is recommended. Howev er there is very slight increased FLAIR signal of the adjacent gyri and if no aneurysm is seen this l ikely represents a small solitary metastatic focus. 2. Few scattered foci of nonenhancing nonspecific white matter change, likely related to a gradually adenopathy.
== END ==
LOC: RADMRIMAIN 07:22
PROVIDERS: ATTEND Internal Medicine Hematology & Oncology
DX: R90.89 Other abnormal findings on diagnostic imaging of central nervous system (principal); C34.32 Malignant neoplasm of lower lobe, left bronchus or lung
CPT/HCPCS: 70553; A9585

== ENCOUNTER → 2018-08-28 | Outpatient (CLI) | payer OTHER ==
--- NOTE | 2018-08-28 10:02 | XR ---
EXAMINATION TYPE: XR chest 2V DATE OF EXAM: 08/28/2018 COMPARISON: Prior chest x-ray 07/17/2018, PET CT 07/25/2018 HISTORY: Lung cancer, cough TECHNIQUE: Frontal and lateral views of the chest are obtained. FINDINGS: There is some improvement in aeration as compared to prior exam. Multiple nodular densitie s are scattered within the lungs, some linear bands are also scattered within the lungs. No evident p neumothorax or pleural effusion. Heart size is within normal limits. Pulmonary vascularity and rachel n ot significantly changed, suprahilar density again noted on the left.. Granulomatous disease changes are again noted. IMPRESSION: Findings compatible with patient's history of lung carcinoma with improved aeration nile red to prior CT. There is evidence of old granulomatous disease.
== END | disposition home or self-care (01) ==
LOC: RADXRMAIN 09:27
PROVIDERS: ATTEND Internal Medicine Hematology & Oncology
DX: C34.12 Malignant neoplasm of upper lobe, left bronchus or lung (principal)
CPT/HCPCS: 71046

== ENCOUNTER → 2018-08-31 | Outpatient (CLI) | payer OTHER ==
--- NOTE | 2018-08-31 21:37 | MR ---
EXAMINATION TYPE: MR angio head wo con DATE OF EXAM: 08/31/2018 COMPARISON: MRI brain one week ago. HISTORY: Abnormal MRI of Brain TECHNIQUE: Time of flight images focusing on the [place] were performed without contrast.. 2-D and 3-D postprocessing imaging is performed on MRI scanner. FINDINGS: There is dominant right vertebral artery. Vertebral arteries are patent to basilar junction . There is no significant focal stenosis or aneurysmal change. There is patent right posterior commun icating artery. This hypoplastic left posterior communicating artery. Images of the anterior circulation show patent anterior communicating artery. No aneurysmal change is seen. Area of concern high left frontal region on recent MRI is outside the field of view on MRA maurilio dy which as per protocol focuses on [place]. IMPRESSION: As above, no aneurysm is evident but area of MRI concern is outside the field of view. Ad vise repeat MRA imaging which could be performed free of charge.
== END ==
LOC: RADMRIMAIN 20:43
PROVIDERS: ATTEND Internal Medicine Hematology & Oncology
DX: C34.12 Malignant neoplasm of upper lobe, left bronchus or lung (principal); R93.0 Abnormal findings on diagnostic imaging of skull and head, not elsewhere classified
CPT/HCPCS: 70544

== ENCOUNTER → 2018-09-17 | Outpatient (CLI) | payer OTHER ==
--- NOTE | 2018-09-17 14:31 | CT ---
EXAMINATION TYPE: CT chest wo con DATE OF EXAM: 09/17/2018 COMPARISON: None HISTORY: 47-year-old male Lung CA TECHNIQUE: Contiguous axial scanning of the chest without IV contrast. Coronal and sagittal reconstru ctions performed. CT DLP: 481.4 mGycm Automated exposure control for dose reduction was used. FINDINGS: Heart normal size without pericardial effusion. Aorta normal caliber with very direct takeoff of the left vertebral artery directly from the aortic a rch. Prominent prevascular space and AP window lymph nodes measure 9 and 8 mm versus 8 and 6 mm, respectiv diogenes on the prior exam. Still, no thoracic lymphadenopathy by CT size criteria. Calcified left hilar lymph node and calcified granuloma left midlung and peripheral left base. There is irregular mass of the medial left upper lobe extending to the suprahilar level encasing port ions of the segmental upper lobe bronchi. The mass is larger now measuring 5.9 x 3.5 cm versus 4.8 x 2.4 cm, previously. There also appears to be more superior extent nearing the anterior pleural margin now with craniocaudal extent of 5.1 cm. Persistent multifocal patchy and interstitial densities throughout the lungs especially within the pe riphery of the lungs though the overall degree of consolidation has decreased in the interval. Visualized upper abdomen shows a hilar splenule. Calcified granulomas in the spleen. Bones: Mild endplate spondylosis throughout the thoracic spine. No osseous destructive process seen. IMPRESSION: 1. KNOWN MEDIAL LEFT UPPER LOBE MASS HAS INCREASED IN SIZE now measuring 5.9 x 3.5 cm versus 3.8 x 2. 4 cm, previously. The mass encases portions of the segmental upper lobe bronchi and abuts the superio r mediastinum. 2. Two enlarging prevascular space and AP window lymph nodes measuring 9 and 8 mm versus 8 and 6 mm, previously. These are nonspecific and remain nonenlarged by CT size criteria. 3. Improvement but persistent multifocal peripheral airspace and interstitial densities. Correlate fo r any residual infection in this patient. If the findings remain stable, extensive scarring is possib le.
--- NOTE | 2018-09-17 14:37 | CT ---
EXAMINATION TYPE: CT brain wo con DATE OF EXAM: 09/17/2018 COMPARISON: MRI 08/24/2018 HISTORY: 47-year-old male Lung CA with brain mets TECHNIQUE: Examination was done in axial plane without intravenous contrast. Coronal and sagittal r econstructions performed. CT DLP: 1108.4 mGycm Automated exposure control for dose reduction was used. FINDINGS: Prominent perivascular spaces left greater than right basal ganglia. Very subtle focal subcortical hypodensity in the posterior left frontal lobe, axial image 39. No mass effect or midline shift. No evidence for acute intracranial hemorrhage, hydrocephalus, or ext ra-axial fluid collection. No effacement of the basal subarachnoid cisterns. Mild mucosal thickening along the floors of the left recurrent maxillary sinuses. Mastoid air cells w ell pneumatized. Orbits and globes are intact. IMPRESSION: 1. Noncontrast head CT without acute intracranial abnormality seen. 2. Small area of subcortical hypodensity in the posterior left frontal lobe corresponds to the enhanc ing lesion seen on the patient's 08/24/2018 MRI. A small brain metastasis is favored.
== END | disposition home or self-care (01) ==
LOC: RADCTMAIN 12:50
PROVIDERS: ATTEND Thoracic Surgery (Cardiothoracic Vascular Surgery)
DX: C34.90 Malignant neoplasm of unspecified part of unspecified bronchus or lung (principal); R90.89 Other abnormal findings on diagnostic imaging of central nervous system
CPT/HCPCS: 70450; 71250

== ENCOUNTER → 2018-12-01 | Outpatient (CLI) | payer OTHER ==
--- NOTE | 2018-12-01 19:35 | MR ---
EXAMINATION TYPE: MR brain wo/w con DATE OF EXAM: 12/01/2018 COMPARISON: 08/24/2018 HISTORY: Secondary malignant neoplasm of brain TECHNIQUE: Multiplanar, multisequence images of the brain and brainstem is performed without and with IV contras t, utilizing 9 mL intravenous Gadavist . FINDINGS: Diffusion weighted images demonstrate no evidence of a recent infarct or other diffusion ab normality. The ventricular system and cisternal spaces are normal in size and appearance. The brain volume is age appropriate. Midline structures demonstrate normal morphology. The craniocervical junction appears within normal limits. Post contrast images demonstrate stable 2.5 mm area of enhancement in the left frontal parie marie junction unchanged from prior exam. No additional enhancing lesions are seen. A few scattered areas of abnormal signal the white matter are stable and nonspecific. Areas of abnorm al signal seen involving the basal ganglia may represent prominent Virchow-Jeromy spaces rather than r emote lacunar infarctions. Changes of chronic sinusitis are noted. IMPRESSION: 1. Stable 2.5 mm area of enhancement in the left frontal parietal junction unchanged from the prior e xam. No additional enhancing lesions are seen. The lesion is too small to characterize, differential diagnosis continues to include a tiny area of metastases. 2. Stable nonspecific white matter changes. Remote microvascular ischemia, demyelinating process, vas culitis, hypertension are all within the differential diagnosis.
== END | disposition home or self-care (01) ==
LOC: RADMRIMAIN 14:48
PROVIDERS: ATTEND Radiology Radiation Oncology
DX: I67.82 Cerebral ischemia (principal); I77.6 Arteritis, unspecified; I10 Essential (primary) hypertension; C79.31 Secondary malignant neoplasm of brain; C34.12 Malignant neoplasm of upper lobe, left bronchus or lung; Z87.891 Personal history of nicotine dependence
CPT/HCPCS: 70553; A9585

== ENCOUNTER → 2018-12-16 | Outpatient (CLI) | payer OTHER ==
--- NOTE | 2018-12-16 15:31 | XR ---
EXAMINATION TYPE: XR chest 2V DATE OF EXAM: 12/16/2018 COMPARISON: 12/07/2018 TECHNIQUE: PA and lateral views submitted. HISTORY: Lung cancer FINDINGS: Surgical sutures are seen near the previously identified left perihilar mass. A pulmonary nodule at t he costophrenic angle on the left relates to benign calcified granuloma. The pulmonary nodule at the left lung base, possible atelectasis on the prior CT is not visualized on x-ray. Volume loss in the left hemithorax is postsurgical. Minimal left perihilar atelectasis. Cardia medias tinal silhouette is within normal limits. Mild multilevel degenerative changes of the spine. Rib defo rmities on the left are stable. Right lung remains clear. IMPRESSION: 1. Postop changes of the left hemithorax and minimal left perihilar atelectasis are stable.
== END | disposition home or self-care (01) ==
LOC: RADXRMAIN 14:55
PROVIDERS: ATTEND Nurse Practitioner Adult Health
DX: C34.12 Malignant neoplasm of upper lobe, left bronchus or lung (principal); J98.11 Atelectasis; Z71.3 Dietary counseling and surveillance; Z98.890 Other specified postprocedural states
CPT/HCPCS: 71046

== ENCOUNTER 2019-01-28 07:04 | Day surgery (SDC) | payer OTHER ==
[2019-01-26 14:01] VITALS: BMI 31.9
[~2019-01-28 07:04] MED LIST: LACTATED RINGERS 1,000 ML IV SCH; LIDOCAINE 1% 20 ML VIAL (10MG/ML) FOR IV START INTRADERMA PRN
[2019-01-28] MEDS ORDERED: LACTATED RINGERS 1,000 ML IV ONE ×2 (07:23)
[2019-01-28 07:25] VITALS: TEMP 98
[2019-01-28] MEDS ORDERED: LIDOCAINE 1% INJ 10MG/ML (20 ML MDV) ONE (07:40)
[2019-01-28] MEDS ORDERED: PROPOFOL 10 MG/ML 20 ML VIAL IV ONE (07:40)
--- NOTE | 2019-01-28 07:48 | P.GSHP ---
History of Present Illness H&P Date: 01/28/19 Chief Complaint: Screening colonoscopy, change in bowel habits This a 48-year-old male who presents today for screening colonoscopy. Patient's had change in bowel habits altering diarrhea and constipation. He presents today for colonoscopy. Past Medical History Past Medical History: Cancer, Pneumonia Additional Past Medical History / Comment(s): Hx bells palsy (July 2017), left lung cancer with lobectomy October 2018 ([facility]), states spot of cancer on brain-received radiation tx (September 2018)., pneumonia (07/2018), has cataract right eye. History of Any Multi-Drug Resistant Organisms: None Reported Past Surgical History: No Surgical Hx Reported Additional Past Surgical History / Comment(s): oral surgery, vasectomy, left lung lobectomy (October 2018 @ [facility]) Past Anesthesia/Blood Transfusion Reactions: No Reported Reaction Past Psychological History: No Psychological Hx Reported Smoking Status: Former smoker Past Alcohol Use History: Rare Additional Past Alcohol Use History / Comment(s): quit smoking 2000., started smoking age 15, smoked 1ppd. Past Drug Use History: Marijuana Additional Drug Use History / Comment(s): denies current marijuana use - Past Family History Father Family Medical History: Renal Disease Additional Family Medical History / Comment(s): . Medications and Allergies Home Medications Medication Instructions Recorded Confirmed Type HYDROcodone/APAP 7.5-325MG [[place] 1 tab PO DIRECTED PRN 01/26/19 01/26/19 History 7.5-325] Ondansetron [Zofran] 4 mg PO DAILY PRN 01/26/19 01/26/19 History Vitamin B Complex 1 each PO DAILY 01/26/19 01/26/19 History Allergies Allergy/AdvReac Type Severity Reaction Status Date / Time No Known Allergies Allergy Verified 01/26/19 13:26 Surgical - Exam Vital Signs Pulse Resp BP Pulse Ox 69 18 149/92 92 L 01/28/19 07:17 01/28/19 07:17 01/28/19 07:17 01/28/19 07:17 - General well developed, well nourished, no distress - Eyes PERRL - ENT normal pinna - Neck no masses - Respiratory normal expansion - Cardiovascular Rhythm: regular - Abdomen Abdomen: soft, non tender Assessment and Plan Assessment: Change in bowel habits We'll perform screening colonoscopy.
--- NOTE | 2019-01-28 07:58 | P.OP ---
Date of Procedure: 01/28/19 Preoperative Diagnosis: [place] colonoscopy Change in bowel habits Postoperative Diagnosis: Normal colon Procedure(s) Performed: Colonoscopy Anesthesia: MAC Surgeon: Suhas Kelley Pathology: none sent Condition: stable Disposition: PACU Description of Procedure: PROCEDURE: The patient was placed on the endoscopy table in the lateral position. Digital rectal examination was performed which revealed no abnormalities. The prostate was symmetrical without nodules. Flexible colonoscope was then placed in the patient's anus and passed throughout the entire colon. The ileocecal valve was visualized. The cecum, ascending, transverse, descending and sigmoid colon were normal. The rectum was normal as well. There were no masses, polyps or diverticula noted in the entire colon. SUMMARY OF FINDINGS: Normal colonoscopy.
[2019-01-28 08:05] VITALS: RESP 14
[2019-01-28 08:12] VITALS: BP 143/95; PULSE 68
== END 2019-01-28 08:34 | disposition home or self-care (01) ==
LOC: ORWHC2ENDO 07:04
PROVIDERS: ATTEND Surgery
DX: R19.4 Change in bowel habit (principal); G51.0 Bell's palsy; H25.9 Unspecified age-related cataract; Z85.118 Personal history of other malignant neoplasm of bronchus and lung; Z90.2 Acquired absence of lung [part of]; Z87.01 Personal history of pneumonia (recurrent); Z92.3 Personal history of irradiation; Z98.52 Vasectomy status; Z98.890 Other specified postprocedural states; Z87.891 Personal history of nicotine dependence; Z84.1 Family history of disorders of kidney and ureter
CPT/HCPCS: 45378; J2001; J2704

== ENCOUNTER → 2019-03-12 | Outpatient (CLI) | payer OTHER ==
--- NOTE | 2019-03-12 16:43 | MR ---
EXAMINATION TYPE: MR brain wo/w con DATE OF EXAM: 03/12/2019 COMPARISON: MRI brain December 01, 2018. HISTORY: Headaches, Hx. of lung ca with brain mets TECHNIQUE: Multiplanar, multisequence images of the brain and brainstem is performed without and with IV contras t, utilizing 9 mL intravenous Gadavist . FINDINGS: Diffusion weighted images demonstrate no evidence of a recent infarct or other diffusion ab normality. There is no worrisome extra-axial fluid collection. The ventricular system and cisternal spaces are normal in size and appearance. The brain volume is age appropriate. Occasional small sca ttered focus of T2 hyperintensity throughout the white matter bilaterally. Midline structures demonstrate normal morphology. The craniocervical junction appears within normal limits. Post contrast images demonstrate persistent 1 to 2 mm enhancing focus near posterior left fr ontal lobe image 58 with prominent from prior study. No definitive new enhancing lesions are seen. Th e dural venous sinuses appear patent. Mild mucosal thickening bilateral ethmoid sinuses redemonstrate d. Globes are intact bilaterally. IMPRESSION: Small focus of enhancement posterior left frontal lobe is slightly smaller versus prior. Metastatic focus remains in differential. No new enhancing lesions are seen.
== END | disposition home or self-care (01) ==
LOC: RADMRIMAIN 15:14
PROVIDERS: ATTEND Radiology Radiation Oncology
DX: C79.31 Secondary malignant neoplasm of brain (principal); C34.12 Malignant neoplasm of upper lobe, left bronchus or lung; Z87.891 Personal history of nicotine dependence; Z92.3 Personal history of irradiation
CPT/HCPCS: 70553; A9585

== ENCOUNTER → 2019-03-27 | Outpatient (CLI) | payer OTHER ==
--- NOTE | 2019-03-29 15:50 | PE ---
Nuclear medicine PET/CT HISTORY: Lung cancer, subsequent Patient received 12.5 mCi F-18 FDG intravenously in delayed scanning was performed from the skull bas e to the mid thighs. Localization and attenuation correction CT scan was performed. Correlation to chest CT 09/17/2018 Neck And chest: Status post lobectomy. There is volume loss in the left hemithorax. No pleural or per icardial effusion. There is no mediastinal, axillary, or hilar adenopathy. Partially calcified prevas cular lymph node is stable and shows no hypermetabolic uptake. No supraclavicular or cervical adenopa thy. There is a calcified nodule in the subpleural location in the left lower chest laterally as on p rior. ABDOMEN: Calcified nodules present within the spleen consistent with old granulomatous disease. The l iver shows no mass. No suspicious hypermetabolic uptake. No retroperitoneal adenopathy or adrenal mas s. Some dependent hyperdensity within the gallbladder may be related to stones. No pelvic adenopathy or free fluid. Uptake along the stomach felt likely to be physiologic. Osseous structures: The posterior left sixth rib shows partial resection, posterior laterally the lef t seventh rib shows some hypermetabolic uptake, SUV 3.1, possibly related to prior surgery or treatme nt. IMPRESSION: Posttreatment changes.
== END | disposition home or self-care (01) ==
LOC: RADPETMAIN 09:26
PROVIDERS: ATTEND Internal Medicine Hematology & Oncology
DX: C34.12 Malignant neoplasm of upper lobe, left bronchus or lung (principal); Z98.890 Other specified postprocedural states
CPT/HCPCS: 78815; A9552

== ENCOUNTER → 2019-05-03 | Outpatient (CLI) | payer OTHER ==
--- NOTE | 2019-05-03 14:46 | XR ---
EXAMINATION TYPE: XR chest 2V DATE OF EXAM: 05/03/2019 COMPARISON: 12/16/2018 TECHNIQUE: PA and lateral views submitted. HISTORY: Cough FINDINGS: Chronic rib cage deformity on the left is stable and there is basilar subsegmental atelectasis. No pn eumothorax. Biapical pleural thickening. No interstitial edema. Heart size is normal. IMPRESSION: 1. Basilar atelectasis favored over pneumonia.
== END | disposition home or self-care (01) ==
LOC: RADXRMAIN 14:25
PROVIDERS: ATTEND Internal Medicine Hematology & Oncology
DX: C34.12 Malignant neoplasm of upper lobe, left bronchus or lung (principal); J98.11 Atelectasis; Z71.3 Dietary counseling and surveillance
CPT/HCPCS: 71046

== ENCOUNTER → 2019-06-29 | Outpatient (CLI) | payer OTHER ==
--- NOTE | 2019-06-29 14:26 | MR ---
EXAMINATION TYPE: MR brain wo/w con DATE OF EXAM: 06/29/2019 COMPARISON: 03/12/2019 HISTORY: Lung cancer with known brain metastasis TECHNIQUE: Multiplanar, multisequence images of the brain and brainstem is performed without and with IV contras t, utilizing 10 mL intravenous Gadavist . FINDINGS: Motion artifact limits the T2 and FLAIR axial sequences. Diffusion weighted images demonstr ate no evidence of a recent infarct or other diffusion abnormality. There is no extra-axial fluid co llection. Few scattered foci of nonspecific white matter change are seen as foci of T2/FLAIR hyperint ensity in the periventricular white matter. The ventricular system and cisternal spaces are normal i n size and appearance. The brain volume is age appropriate. Midline structures demonstrate normal morphology. The craniocervical junction appears within normal limits. There remains a punctate focus of enhancement along a left frontal gyrus. Levels this appears extra-axial on axial images this does appear intra-axial on coronal images. This is unchanged in siz e from the prior measuring 1 to 2 mm. This is located directly adjacent to a vessel and possibly cont iguous with the vessel. No new suspicious foci of enhancement. The dural venous sinuses appear patent . Mild mucosal thickening is seen of the left maxillary sinus and scant mucosal thickening of the eth moid sinuses. IMPRESSION: 1. Stable punctate 1 to 2 mm left frontal focus of enhancement that is directly adjacent to a vessel and difficult to determine intra-axial versus extra-axial location. This could represent vascular ect angella or a small focus of intracranial metastasis. No new foci of suspicious intracranial enhancement. 2. Limited evaluation of T2 and FLAIR imaging given patient motion. Mild burden nonspecific white mat ter changes similar to the prior.
== END | disposition home or self-care (01) ==
LOC: RADMRIMAIN 11:24
PROVIDERS: ATTEND Radiology Radiation Oncology
DX: R90.89 Other abnormal findings on diagnostic imaging of central nervous system (principal); C77.9 Secondary and unspecified malignant neoplasm of lymph node, unspecified; C34.12 Malignant neoplasm of upper lobe, left bronchus or lung; Z92.3 Personal history of irradiation; Z87.891 Personal history of nicotine dependence
CPT/HCPCS: 70553; A9585

== ENCOUNTER → 2019-10-08 | Outpatient (CLI) | payer OTHER ==
--- NOTE | 2019-10-10 18:20 | PE ---
EXAMINATION TYPE: PET CT fusion skull to thigh DATE OF EXAM: 10/08/2019 COMPARISON: Chest CT 09/17/2018 Prior PET/CT: 03/27/2019 HISTORY: Lung cancer TECHNIQUE: Following the intravenous administration of 8.89 mCi of F-18 FDG, whole body images are p erformed from the skull base to the midthigh. Images are reviewed on the computer in the coronal, ax ial, and sagittal planes. Reconstructed rotating images are created on independent workstation and r eviewed on the computer. A localization and attenuation correction CT is performed in conjunction w ith the PET scan. DLP: 537.97 mGycm SCAN: Subsequent Blood glucose: 105 mg/dL Average Mediastinum SUV: 1.28 Average Liver SUV: 1.88 FINDINGS: NECK: There is some focal uptake within the anterior left mandible with an SUV of 4.39. Some periodo ntal disease should be considered. Osseous metastasis is not entirely excluded THORAX: No suspicious uptake ABDOMEN: No suspicious uptake PELVIS: No suspicious uptake within the soft tissues. OSSEOUS STRUCTURES: There is focal radiotracer accumulation within the inferior left lateral aspect o f the L4 vertebral body with an SUV value of 5.12 compatible with metastatic lesion. LOCALIZATION CT: Small gallstones may be at the neck of the gallbladder. COMPARISON: The metastatic lesion within the lumbar spine is new. IMPRESSION: 1. There is a new lytic lesion within the left inferior lateral L4 vertebral body compatible with a m etastatic lesion. 2. Additional suspicious findings are not evident.
== END | disposition home or self-care (01) ==
LOC: RADPETMAIN 12:01
PROVIDERS: ATTEND Internal Medicine Hematology & Oncology
DX: M48.8X6 Other specified spondylopathies, lumbar region (principal); C34.12 Malignant neoplasm of upper lobe, left bronchus or lung
CPT/HCPCS: 78815; A9552

== ENCOUNTER → 2019-10-14 | Outpatient (CLI) | payer OTHER ==
--- NOTE | 2019-10-14 11:41 | MR ---
EXAMINATION TYPE: MR brain wo/w con DATE OF EXAM: 10/14/2019 COMPARISON: 06/29/2019 HISTORY: Known Lung and Brain CA. Follow Up Study TECHNIQUE: Multiplanar, multisequence images of the brain and brainstem is performed without and with IV contras t, utilizing 10 mL intravenous Gadavist . FINDINGS: Diffusion weighted images demonstrate no evidence of a recent infarct or other diffusion ab normality. There is nonspecific signal the white matter similar to the prior exam most suggestive of remote micr ovascular ischemia. Abnormal signal involving the basal ganglia may represent prominent Virchow-Jeromy spaces versus remote lacunar infarct. Midline structures demonstrate normal morphology. The craniocervical junction appears within normal limits. Post contrast images demonstrate no abnormal enhancement. The dural venous sinuses appear pa tent. Changes of chronic sinusitis noted. Artifact overlying the brayan.. IMPRESSION: 1. .Previously noted punctate area of enhancement appears to be compatible with extra-axial cortical vein. However, there is an intraparenchymal 2 mm focus of enhancement on axial image [address] within the right parietal occipital junction compatible with a small intracranial metastases. 2. Nonspecific white matter changes most typical remote microvascular ischemia.
== END | disposition home or self-care (01) ==
LOC: RADMRIMAIN 09:29
PROVIDERS: ATTEND Radiology Radiation Oncology
DX: I67.82 Cerebral ischemia (principal); C79.31 Secondary malignant neoplasm of brain; C77.9 Secondary and unspecified malignant neoplasm of lymph node, unspecified; C34.12 Malignant neoplasm of upper lobe, left bronchus or lung; Z87.891 Personal history of nicotine dependence; Z92.3 Personal history of irradiation
CPT/HCPCS: 70553; A9585

== ENCOUNTER → 2019-10-15 | Outpatient (CLI) | payer OTHER ==
--- NOTE | 2019-10-15 14:11 | MR ---
EXAMINATION TYPE: MR lumbar spine wo/w con DATE OF EXAM: 10/15/2019 COMPARISON: PET/CT scan 10/08/2019 HISTORY: Low back pain, Lung ca Contrast: 10 mL Gadavist TECHNIQUE: T1 and T2 axial and sagittal, postcontrast T1 axial and sagittal images of the lumbar spi ne are submitted. FINDINGS: There is no abnormal signal seen within the visualized spinal cord or paraspinal soft tissu es. At L1-2 there is right paracentral disc protrusion with mild effacement of thecal sac. No Canal steno sis. No foraminal encroachment. At L2-3 there is degenerative disc disease and central and left paracentral disc bulging with mild ef facement of thecal sac. No foraminal encroachment or canal stenosis. At L3-4 there is facet arthropathy with no disc herniation, canal stenosis, or foraminal encroachment . Mild circumferential disc bulging. At L4-5 there is facet arthropathy and mild circumferential disc bulging. Neural foramina remain proctor nt. At L5-S1 there is there is a retrolisthesis of L5 relative to S1. Broad-based disc protrusion or johanne iation resulting in moderate effacement of thecal sac and mild bilateral foraminal encroachment. Mode rate to severe degenerative disc disease. There is abnormal marrow signal involving L4 with enhancement. Lytic change involving the anterior ma rgin of the L4 segment noted. Mild endplate compression deformity noted. Findings correspond to the a bnormal finding by PET scan. There is a lytic change involving the left anterior margin of the verteb ral body with the adjacent 0.8 x 1.8 cm soft tissue enhancement compatible with metastases.. IMPRESSION: 1. L4 vertebral body destructive/lytic metastatic lesion concordant with the PET scan finding. 2. Multilevel degenerative disc disease and facet arthropathy. Broad-based disc herniation L5-S1 resu lts in moderate thecal sac compression and mild bilateral foraminal encroachment. 3. Disc protrusion or bulging L1-2, L2-3 and and L3-L4 with no canal stenosis.
--- NOTE | 2019-10-17 17:49 | MR ---
EXAMINATION TYPE: MR shoulder LT wo con DATE OF EXAM: 10/15/2019 COMPARISON: Correlation PET/CT 10/08/2019 HISTORY: 48-year-old male with left shoulder pain, previous injury TECHNIQUE: Multiplanar, multisequence imaging of the left shoulder is performed without contrast. FINDINGS: Abnormal signal within the intracapsular portion of the long head biceps tendon. The extracapsular po rtion remains appropriately situated along the bicipital groove. Soft tissue replacement and edematou s change within the rotator cuff interval. Heterogeneous thickening of the subscapularis tendon which appears intact. Moderate degenerative joint space narrowing with marginal spurring at the acromioclavicular joint. Mi ld mass effect onto the underlying myotendinous junction of the supraspinatus. Diffuse heterogeneous signal posterior pes planus and infraspinatus tendons. Anteriorly, there is a shallow 9 mm long and 1.4 cm AP bursal sided tear of the anterior to mid supra spinatus tendon. This tear becomes an intrasubstance tear at the footprint as it continues posteriorl y measuring 6 x 5 mm at the junction of the supraspinatus and infraspinatus tendons. No high-grade partial or full-thickness tear is seen at this time. No effusion within the subacromial/subdeltoid bursa. No atrophy of the rotator cuff musculature. The superior aspect of the glenoid labrum is diffusely degenerative and torn. There is a 1 cm ganglio n cyst inferiorly, possible paralabral cyst indicating a subtle inferior labral tear as well. No glenohumeral joint effusion. No Hill-Sachs deformity or os acromiale. Patchy red marrow can be seen in the setting of anemia, obes ity, smoking, chronic disease. No suspicious bone marrow replacement. IMPRESSION: 1. Diffuse rotator cuff tendinosis. There is a shallow bursal sided tear of the anterior to mid supra spinatus tendon. This becomes an intrasubstance tear at the footprint as it extends posteriorly to th e junction with the infraspinatus tendon. No high-grade partial or full-thickness tear seen at this t regino. 2. Long head biceps tendinosis with interstitial and split tear of the intracapsular portion. No retr acted tear. Associated synovitis in the rotator cuff interval. 3. Diffusely degenerative and torn superior glenoid labrum. There is a 1 cm ganglion cyst inferiorly that could indicate a subtle inferior labral tear as well. 4. Moderate AC joint OA.
== END | disposition home or self-care (01) ==
LOC: RADMRIMAIN 12:22
PROVIDERS: ATTEND Internal Medicine Hematology & Oncology
DX: M51.27 Other intervertebral disc displacement, lumbosacral region (principal); M51.36 Other intervertebral disc degeneration, lumbar region; M47.816 Spondylosis without myelopathy or radiculopathy, lumbar region; S46.012A Strain of muscle(s) and tendon(s) of the rotator cuff of left shoulder, initial encounter; M75.22 Bicipital tendinitis, left shoulder; S46.812A Strain of other muscles, fascia and tendons at shoulder and upper arm level, left arm, initial encounter; M65.9 Synovitis and tenosynovitis, unspecified; S43.432A Superior glenoid labrum lesion of left shoulder, initial encounter; M67.412 Ganglion, left shoulder; M19.012 Primary osteoarthritis, left shoulder; C34.12 Malignant neoplasm of upper lobe, left bronchus or lung
CPT/HCPCS: 72158; 73221; A9585

== ENCOUNTER → 2020-02-16 | Outpatient (CLI) | payer OTHER ==
--- NOTE | 2020-02-17 04:39 | MR ---
EXAMINATION TYPE: MR brain wo/w con DATE OF EXAM: 02/16/2020 COMPARISON: 12/29/2019 HISTORY: Primary lung cancer and weakness of the LT side-follow up radiation CONTRAST: Standard multiplanar, multisequence MRI departmental protocol utilizing 10 mL intravenous Gadavist ga dolinium contrast. The diffusion images show no evidence of an acute cortical infarct. On the T2 and FLAIR images there are small foci of increased signal adjacent to the occipital horns of the lateral ventricles and also in the left internal capsule that measure up to 6 mm. There is no mass effect nor midline shift. The re is no evidence of intracranial hemorrhage. There are also a few scattered white matter small foci up to 4 mm in the right frontal lobe white matter. The brainstem is intact. Cerebellum is intact. Cor pus callosum is intact. Sella turcica appears normal. There is no pathologic enhancement. There is normal enhancement of the venous sinuses. There is arter ial flow in the anterior middle and posterior cerebral arteries. IMPRESSION: Scattered white matter high signal foci are nonspecific and could relate to chronic small vessel isch emia or minimal demyelinating disease. No evidence of metastatic disease. No evidence of cortical inf arct. Brain appears unchanged compared to old exam.
== END | disposition home or self-care (01) ==
LOC: RADMRIMAIN 10:58
PROVIDERS: ATTEND Internal Medicine Hematology & Oncology
DX: R90.82 White matter disease, unspecified (principal); C34.12 Malignant neoplasm of upper lobe, left bronchus or lung
CPT/HCPCS: 70553; A9585

== ENCOUNTER → 2020-02-17 | Outpatient (CLI) | payer OTHER ==
--- NOTE | 2020-02-17 14:31 | MR ---
EXAMINATION TYPE: MR lumbar spine wo/w con DATE OF EXAM: 02/17/2020 COMPARISON: 10/15/2019 HISTORY: 49-year-old male with lung cancer, back pain Technique: Multiplanar, multisequence images of the lumbar spine were obtained before and after admin istration of 10 mL intravenous Gadavist gadolinium contrast. FINDINGS: Redemonstrated heterogeneously enhancing lesion of the left L4 vertebral body with some extraosseous extension and associated inferior endplate fracture. There is been progressive inferior endplate comp ression as compared to 10/15/2019. No retropulsion into the spinal canal. Overall 25% left lateral he ight loss. Enhancing lesion of the anterior L5 vertebral body and additional smaller osseous metastatic lesions of L1 and L2. Stable probable bone island of L3 vertebral body. Remaining vertebral body heights are maintained. 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 Mild degenerative disc disease mid and lower lumbar spine with variable disc desiccation and disc bul ging. Facet arthropathy mid to lower lumbar spine. Changes do not result in any significant spinal canal stenosis. Conus medullaris is normal. On the right, there is minimal inferior foraminal narrowing at L4-L5 and mild narrowing at L5-S1. Dis c material may abut the exiting right L5 nerve root. On the left, there is mild neuroforaminal stenosis at L4-L5. IMPRESSION: 1. Known osseous metastases to L4. There is an associated pathologic inferior endplate fracture now w ith 25% left lateral vertebral body height loss. No retropulsion into the spinal canal. 2. New osseous metastases in the lumbar spine involving L1, L2, and L5. 3. Mild to moderate degenerative disc disease lower lumbar spine with facet arthropathy. There is a c omponent of mild congenital spinal canal stenosis in the lower lumbar spine. 4. No significant spinal canal stenosis is demonstrated. Mild right neuroforaminal stenosis at L5-S1. Disc material here may abut the exiting right L5 nerve root. Mild left neural foraminal stenosis at L4-L5.
== END | disposition home or self-care (01) ==
LOC: RADMRIMAIN 13:05
PROVIDERS: ATTEND Internal Medicine Hematology & Oncology
DX: C79.51 Secondary malignant neoplasm of bone (principal); C34.12 Malignant neoplasm of upper lobe, left bronchus or lung; M48.07 Spinal stenosis, lumbosacral region; M48.061 Spinal stenosis, lumbar region without neurogenic claudication; M51.36 Other intervertebral disc degeneration, lumbar region; M47.816 Spondylosis without myelopathy or radiculopathy, lumbar region
CPT/HCPCS: 72158; A9585

== ENCOUNTER → 2020-02-18 | Outpatient (CLI) | payer OTHER ==
--- NOTE | 2020-02-20 12:23 | PE ---
Nuclear medicine PET/CT HISTORY: Lung carcinoma, C 34.12, subsequent Patient received 9.9 mCi F-18 FDG intravenously in delayed scanning was performed from skull base to the mid thighs. Localization and attenuation correction CT scan was performed. Correlation to prior nuclear medicine PET/CT 10/08/2019, lumbar MRI 02/17/2020 Chest and neck: There is no evident lung mass. No pleural or pericardial effusion. No suspicious hype rmetabolic uptake. Calcified nodule is present at the left lower lobe laterally in the subpleural loc ation. No mediastinal, axillary, or hilar adenopathy. Prevascular node shows a similar appearance. No suspicious uptake. Postop changes noted with volume loss in left hemithorax. No cervical or supracla vicular adenopathy. ABDOMEN: No evident liver mass. Some dependent high attenuation in the gallbladder consistent with st ones. No adrenal mass or retroperitoneal adenopathy. There is no ascites. There is no suspicious upta ke. Calcifications within the spleen consistent with old granulomatous disease. Osseous structures: R 11, 12 thoracic vertebral bodies show foci of hypermetabolic uptake, there are associated lucencies present within the vertebral bodies. L1 also shows a small focus of hypermetabol ic uptake to the right of midline. Small focus of uptake possibly within the L2 and L3 vertebral bodi es, known abnormal density within the L4 vertebral body with associated uptake, L5 also shows some ab normal uptake. The left acetabulum also shows a focus of abnormal uptake. There is associated lucency . Small focus of muscular uptake present near the insertion of the gluteus tendon in the right greate r trochanter. Spinous process shows uptake at L1. IMPRESSION: There is metastatic disease as described. Findings have progressed since prior PET/CT.
== END | disposition home or self-care (01) ==
LOC: RADPETMAIN 08:48
PROVIDERS: ATTEND Internal Medicine Hematology & Oncology
DX: C34.12 Malignant neoplasm of upper lobe, left bronchus or lung (principal)
CPT/HCPCS: 78815; A9552

== ENCOUNTER 2020-02-21 16:05 | Inpatient (IN) | payer OTHER ==
[2020-02-21] MEDS ORDERED: HYDROmorphone 1 MG/ML 1 ML SYRINGE IM STA (16:34)
[2020-02-21] MEDS ORDERED: HYDROmorphone 1 MG/ML 1 ML SYRINGE IVP PRN (16:34)
[2020-02-21] MEDS ORDERED: SODIUM CHLORIDE 0.9% 1,000 ML IV STA (16:34)
--- NOTE | 2020-02-21 16:36 | ED ---
Recheck HPI - General Chief Complaint: Recheck/Abnormal Lab/Rx Stated Complaint: Back pain Time Seen by Provider: 02/21/20 16:34 Source: patient, RN notes reviewed, old records reviewed Mode of arrival: ambulatory Limitations: no limitations - History of Present Illness Initial Comments: This is a 49-year-old male DF for evaluation patient coming in with severe back pain history of back pain history of CVA. Patient is no specific trauma although did take a mild diaper couple weeks ago. Patient unsure cause of symptoms or pain. He did not no severe pain at that time. No chest pain no shortness of breath no abdominal pain. Patient was seen in oncology earlier today and wasn't found of compression fracture cancer related to his back MD Complaint: other (Recheck back pain) -: days(s) Returns Today for: persistent/worsening pain related to initial visit Symptoms Since Prior Visit: worsening pain Context: other (Sent to ER for evaluation and symptom management) Associated Symptoms: none Treatments Prior to Arrival: Given Pain Meds on - Related Data Home Medications Medication Instructions Recorded Confirmed HYDROcodone/APAP 7.5-325MG [[place]ster 1 tab PO DIRECTED PRN 01/26/19 01/26/19 7.5-325] Ondansetron [Zofran] 4 mg PO DAILY PRN 01/26/19 01/26/19 Vitamin B Complex 1 each PO DAILY 01/26/19 01/26/19 Allergies Allergy/AdvReac Type Severity Reaction Status Date / Time No Known Allergies Allergy Verified 01/26/19 13:26 Review of Systems ROS Statement: Those systems with pertinent positive or pertinent negative responses have been documented in the HPI. ROS Other: All systems not noted in ROS Statement are negative. 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), states spot of cancer on brain-received radiation tx (September 2018)., pneumonia (07/2018), has cataract right eye. History of Any Multi-Drug Resistant Organisms: None Reported Past Surgical History: No Surgical Hx Reported Additional Past Surgical History / Comment(s): oral surgery, vasectomy, left lung lobectomy (October 2018 @ [facility]) Past Anesthesia/Blood Transfusion Reactions: No Reported Reaction Past Psychological History: No Psychological Hx Reported Smoking Status: Former smoker Past Alcohol Use History: Rare Past Drug Use History: Marijuana - Past Family History Father Family Medical History: Renal Disease Additional Family Medical History / Comment(s): . General Exam Limitations: no limitations General appearance: alert, in no apparent distress Head exam: Present: atraumatic, normocephalic, normal inspection Eye exam: Present: normal appearance, PERRL, EOMI. Absent: scleral icterus, conjunctival injection, periorbital swelling ENT exam: Present: normal exam, mucous membranes moist Neck exam: Present: normal inspection. Absent: tenderness, meningismus, ly mphadenopathy Respiratory exam: Present: normal lung sounds bilaterally. Absent: respiratory distress, wheezes, rales, rhonchi, stridor Cardiovascular Exam: Present: regular rate, normal rhythm, normal heart sounds. Absent: systolic murmur, diastolic murmur, rubs, gallop, clicks GI/Abdominal exam: Present: soft, normal bowel sounds. Absent: distended, tenderness, guarding, rebound, rigid Extremities exam: Present: normal inspection, full ROM, normal capillary refill. Absent: tenderness, pedal edema, joint swelling, calf tenderness Back exam: Present: normal inspection Neurological exam: Present: alert, oriented X3, CN II-XII intact Psychiatric exam: Present: normal affect, normal mood Skin exam: Present: warm, dry, intact, normal color. Absent: rash Course Vital Signs 02/21/20 16:09 Temperature 97.9 F Pulse Rate 88 Respiratory 18 Rate Blood Pressure 169/115 O2 Sat by Pulse 97 Oximetry - Reevaluation(s) Reevaluation #1: 02/21/20 17:34 Medical records reviewed Reevaluation #2: 02/21/20 17:34 Patient is with significant pain Medical Decision Making - Medical Decision Making 49 mailed ER with known history of CAD coming in with cancer related fracture and severe pain. Patient be admitted for pain control continued evaluation by oncology - Lab Data Result diagrams: 02/21/20 16:57 Lab Results 02/21/20 02/21/20 Range/Units 16:57 16:57 WBC 9.5 (3.8-10.6) k/uL RBC 5.25 (4.30-5.90) m/uL Hgb 15.9 (13.0-17.5) gm/dL Hct 49.0 (39.0-53.0) % MCV 93.3 (80.0-100.0) fL MCH 30.2 (25.0-35.0) pg MCHC 32.4 (31.0-37.0) g/dL RDW 13.1 (11.5-15.5) % Plt Count 252 (150-450) k/uL Neutrophils % 69 % Lymphocytes % 21 % Monocytes % 7 % Eosinophils % 2 % Basophils % 0 % Neutrophils # 6.5 (1.3-7.7) k/uL Lymphocytes # 2.0 (1.0-4.8) k/uL Monocytes # 0.6 (0-1.0) k/uL Eosinophils # 0.2 (0-0.7) k/uL Basophils # 0.0 (0-0.2) k/uL PT 10.3 (9.0-12.0) sec INR 1.0 (<1.2) APTT 25.0 (22.0-30.0) sec Disposition Clinical Impression: Cancer associated pain, Spinal compression fracture with history of cancer Disposition: ADMITTED IP TO THIS HOSP Condition: Fair Is patient prescribed a controlled substance at d/c from ED?: No Referrals: Deuce Tompkins MD [Primary Care Provider] - 1-2 days
[2020-02-21 17:25] LABS: Basophils % (A) 0 %; Eosinophils # (A) 0.2 k/uL (0-0.7); Eosinophils % (A) 2 %; HGB 15.9 gm/dL (13.0-17.5); Lymphocytes % (A) 21 %; MCH 30.2 pg (25.0-35.0); MCHC 32.4 g/dL (31.0-37.0); MCV 93.3 fL (80.0-100.0); Mean Platelet Volume 8.6; Monocytes # (A) 0.6 k/uL (0-1.0); Monocytes % (A) 7 %; Neutrophils # (A) 6.5 k/uL (1.3-7.7); Neutrophils % (A) 69 %; Platelet Count 252 k/uL (150-450); RBC 5.25 m/uL (4.30-5.90); RDW 13.1 % (11.5-15.5); WBC 9.5 k/uL (3.8-10.6)
[2020-02-21 17:32] LABS: Prothrombin Time 10.3 sec (9.0-12.0)
[2020-02-21 17:35] LABS: ALT 55 U/L (4-49); AST 34 U/L (17-59); African American GFR (CKD) >90 (>60 ml/min/1.73 sqM); Albumin 4.6 g/dL (3.5-5.0); Alkaline Phosphatase 81 U/L (38-126); Anion Gap 7 mmol/L; Blood Urea Nitrogen 15 mg/dL (9-20); Calcium 9.9 mg/dL (8.4-10.2); Carbon Dioxide 28 mmol/L (22-30); Chloride 104 mmol/L (98-107); Creatine Kinase 74 U/L (55-170); Glucose 108 mg/dL (74-99); Magnesium 1.9 mg/dL (1.6-2.3); Non-African American GFR(CKD) >90 (>60 ml/min/1.73 sqM); Phosphorus 3.5 mg/dL (2.5-4.5); Potassium 4.2 mmol/L (3.5-5.1); Sodium 139 mmol/L (137-145); Total Bilirubin 1.1 mg/dL (0.2-1.3); Total Protein 7.7 g/dL (6.3-8.2)
[2020-02-21] MEDS ORDERED: SODIUM CHLORIDE 0.9% 1,000 ML IV ONE (17:36)
[2020-02-21 18:27] LABS: Appearance,Urine Clear (Clear); Bilirubin,Urine Negative (Negative); Blood,Urine Negative (Negative); Color,Urine Light Yellow; Glucose,Urine (UA) Negative (Negative); Ketones,Urine Negative (Negative); Leukocyte Esterase,Urine Negative (Negative); Nitrite,Urine Negative (Negative); Protein,Urine Negative (Negative); Specific Gravity,Urine 1.011 (1.001-1.035); Urobilinogen,Urine <2.0 mg/dL (<2.0)
[2020-02-21] MEDS ORDERED: methylPREDNISolone SOD SUCCI 125 MG/2 ML VIAL IV STA (20:04)
[2020-02-21] MEDS ORDERED: PANTOPRAZOLE 40 MG TABLET PO PRN (20:08)
[2020-02-21] MEDS ORDERED: NON FORMULARY DRUG (Sildenafil Citrate [Sildenafil Citrate] 50 MG Tablet) PO PRN (20:08)
[2020-02-21] MEDS ORDERED: ALBUTEROL NEBULIZED 2.5 MG/3 ML INHALATION PRN (20:08)
[2020-02-21] MEDS ORDERED: IBUPROFEN 800 MG TAB PO PRN (20:08)
[2020-02-21] MEDS: HYDROmorphone 1 MG/ML 1 ML SYRINGE IVP PRN (20:18)
[2020-02-21] MEDS: LORazepam 0.5 MG TAB PO SCH (20:19)
[2020-02-21] MEDS ORDERED: TEMAZEPAM 15 MG CAP PO PRN (20:32)
--- NOTE | 2020-02-21 22:22 | HP ---
HISTORY AND PHYSICAL DATE OF SERVICE: 02/21/2020 CHIEF COMPLAINT: Back pain. HISTORY OF PRESENT ILLNESS: This 49-year-old gentleman with a past medical history of lung cancer, history of pneumonia, history of Stewart's palsy, history of lobectomy in 2019 in [facility], history of brain metastases, status post radiation, being followed by Dr. Tompkins in the outpatient setting, is also seen by Dr. Calhoun. The patient also had apparently a compression fracture of the back. Lumbar spine MRI was done on 02/17/2020. The patient has some back pain which has increased in intensity which is sometimes radiating to the back of the left leg. The MRI done recently showed osseous metastatic disease at L4 and associated pathological fracture of the inferior endplate of the fracture with 25% lateral vertebral body height loss and new-onset metastasis in the lumbar spine involving L1, L2, L5, mild to moderate degenerative disc disease also. The patient has been complaining of severe pain, excruciating pain, 10/10 in intensity, and the patient was admitted for further evaluation and treatment. There is no history of any fever, rigor or chills. No history of headache, loss of consciousness, seizures. PAST MEDICAL HISTORY: History lung cancer, Stewart's palsy, history of brain metastases, history of lumbar metastases, bone metastases, history of nicotine dependence. MEDICATIONS: 1. Morphine sulfate 30 mg p.o. b.i.d. 2. Viagra. 3. Dulera 10 mg 2 tablets b.i.d. 4. Albuterol. 5. Omeprazole. 6. Motrin. 7. Folic acid. 8. Centerview. 9. Xanax. ALLERGIES: NONE. FAMILY HISTORY: History of renal disease in the family. SOCIAL HISTORY: Previous history of smoking. No current smoking or alcohol intake. REVIEW OF SYSTEMS: ENT: No diminished hearing. No diminished vision. CARDIOVASCULAR SYSTEM: No angina, palpitations. RESPIRATORY SYSTEM: No cough, hemoptysis. GI: No nausea, vomiting. : No dysuria or retention. NERVOUS SYSTEM: As mentioned earlier. ALLERGY/IMMUNOLOGY: No asthma, hayfever. MUSCULOSKELETAL: As mentioned earlier. HEMATOLOGY/ONCOLOGY: As mentioned earlier. ENDOCRINE: As mentioned earlier. CONSTITUTIONAL: As mentioned earlier. DERMATOLOGY: Negative. RHEUMATOLOGY: Negative. PSYCHIATRY: As mentioned earlier. PHYSICAL EXAMINATION: Patient is alert and oriented x3. Pulse is 88, blood pressure 169/115, respiration 18, temperature 97.9, pulse ox 97% on room air. HEENT: Conjunctivae normal. NECK: No jugular venous distention. CARDIOVASCULAR SYSTEM: S1, S2 muffled. RESPIRATORY SYSTEM: Breath sounds diminished at the bases. A few scattered rhonchi. No crackles. ABDOMEN: Soft, non-tender. No mass palpable. LEGS: No edema. No swelling. NERVOUS SYSTEM: Higher functions as mentioned earlier. Moves all 4 limbs. No focal motor or sensory deficit. LYMPHATICS: No lymph node palpable in neck, axillae or groin. SKIN: No ulcer, rash, bleeding. JOINTS: [id number]-uvi-nfwaxre testing is negative. Some minimal pain is noted. LAB INVESTIGATIONS: CBC within normal limits. Sodium 139, potassium 4.2. ASSESSMENT: 1. Severe intractable low back pain and radiculopathy with failure of outpatient treatment, possibly from bony metastases. 2. History of recent MRI showing known osseous metastasis at L4 with pathological fracture of an inferior endplate as well as new metastases at L1, L2 and L5. 3. Gait dysfunction. 4. History of lung cancer and lobectomy in 2019. 5. History of brain metastases, radiation. 6. Remote history of nicotine dependence. 7. History of tetrahydrocannabinol. 8. Obesity with body mass index of 36.3. RECOMMENDATIONS AND DISCUSSION: In this 49-year-old gentleman who presented with multiple complex medical issues, we will monitor the patient closely, continue the current medications, continue with symptomatic treatment. Will optimize pain management. Short course of steroids. Otherwise, we will also resume the home medications. DVT prophylaxis. Consult oncology team. Guarded prognosis because of multiple complex medical issues. Further recommendations to follow. A copy of this dictation is being forwarded to Dr. Tompkins, who is the primary physician. See orders for further details. MMODL / IJN: [id number] /
[2020-02-21] MEDS: MORPHINE SULFATE ER 30 MG TABLET PO SCH (23:51)
[2020-02-21] MEDS: KETOROLAC 15 MG/ML 1 ML VIAL IVP SCH (23:52)
[2020-02-21] MEDS: HEPARIN SODIUM,PORCINE 5,000 UNIT/ML 1 ML VIAL SQ SCH (23:52)
[2020-02-22] MEDS: HYDROcodone/APAP 10-325MG 1 EACH TAB PO SCH ×2 (04:00→16:33)
[2020-02-22] MEDS: methylPREDNISolone SOD SUCCI 125 MG/2 ML VIAL IV SCH ×2 (04:00→07:13)
[2020-02-22] MEDS: KETOROLAC 15 MG/ML 1 ML VIAL IVP SCH ×4 (04:55→22:39)
[2020-02-22] MEDS: SYMBICORT 80-4.5 MCG INHALER INHALATION SCH ×2 (08:19→18:58)
--- NOTE | 2020-02-22 08:29 | P.PN ---
Subjective This is a pleasant 49 years old male with past medical history of left lung cancer status post lumpectomy on October 2018 at her report, he is following up with Dr. 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 Presents with significant low back pain. MRI done recently showing osseous metastatic disease at L4 and associated pathological fracture of inferior endplate of the fracture with 25% lateral vertebral body height loss and new onset metastasis in the lumbar spine involving L1, L2 and L5, mild to moderate degenerative disc disease also. On the presentation he has back pain about 8/10, currently it is 5/10. He denies any weakness or numbness in the lower extremity, no urine or bowel difficulty or incontinence. No chest pain or headache or altered mental status. No fever. Patient was started on steroids but he refused because he thought it interacts with his chemotherapy. Vital signs reviewed and it looks stable. Also patient coming in from itchiness in the upper extremity with no rash. CONSTITUTIONAL: No fever, no malaise, no fatigue. HEENT: No recent visual problems or hearing problems. Denied any sore throat. CARDIOVASCULAR: No orthopnea, PND, no palpitations, no syncope. PULMONARY: No shortness of breath, no cough, no hemoptysis. GASTROINTESTINAL: No diarrhea, no nausea, no vomiting, no abdominal pain. Normoactive bowel sounds. NEUROLOGICAL: No headaches, no weakness, no numbness. HEMATOLOGICAL: Denies any bleeding or petechiae. Active Medications Generic Name Dose Route Start Last Admin Trade Name Freq PRN Reason Stop Dose Admin Hydrocodone Bitart/Acetaminophen 1 each 02/21/20 22:00 02/22/20 04:00 Hydrocodone/Apap 10-325mg 1 Each Tab PO Not Given TID MARGARETTE Albuterol Sulfate 2.5 mg 02/21/20 20:08 Albuterol Nebulized 2.5 Mg/3 Ml INHALATION RT-QID PRN Shortness Of Breath Alprazolam 0.25 mg 02/21/20 20:08 Alprazolam 0.25 Mg Tab PO TID PRN Anxiety Budesonide/Formoterol Fumarate 2 puff 02/22/20 08:00 02/22/20 08:19 Symbicort 80-4.5 Mcg Inhaler INHALATION Not Given RT-BID MARGARETTE Diphenhydramine HCl 25 mg 02/22/20 08:16 Diphenhydramine 50 Mg/Ml 1 Ml Vial IVP Q6HR PRN Allergy Symptoms Folic Acid 1 mg 02/22/20 09:00 Folic Acid 1 Mg Tab PO DAILY MARGARETTE Heparin Sodium (Porcine) 5,000 unit 02/21/20 21:00 02/21/20 23:52 Heparin Sodium,Porcine 5,000 Unit/Ml 1 Ml Vial SQ Not Given Q12HR MARGARETTE Hydromorphone HCl 1 mg 02/21/20 20:03 02/21/20 20:18 Hydromorphone 1 Mg/Ml 1 Ml Syringe IVP 1 mg Q3HR PRN Administration Pain Ibuprofen 800 mg 02/21/20 20:08 Ibuprofen 800 Mg Tab PO Q8H PRN Pain Ketorolac Tromethamine 15 mg 02/21/20 22:00 02/22/20 04:55 Ketorolac 15 Mg/Ml 1 Ml Vial IVP 02/26/20 22:01 15 mg Q6H MARGARETTE Administration Lorazepam 0.5 mg 02/21/20 21:00 02/21/20 20:19 Lorazepam 0.5 Mg Tab PO 0.5 mg HS MARGARETTE Administration Methylprednisolone Sodium Succinate 60 mg 02/22/20 00:00 02/22/20 07:13 Methylprednisolone Sod Succi 125 Mg/2 Ml Vial IV Not Given Q6HR MARGARETTE Morphine Sulfate 30 mg 02/21/20 21:00 02/21/20 23:51 Morphine Sulfate Er 30 Mg Tablet PO 30 mg BID MARGARETTE Administration Pantoprazole Sodium 40 mg 02/21/20 20:08 Pantoprazole 40 Mg Tablet PO DAILY PRN GI Upset Temazepam 15 mg 02/21/20 20:32 Temazepam 15 Mg Cap PO HS PRN Insomnia Objective - Vital Signs Vital signs: Vital Signs Temp 97.8 F 02/22/20 05:00 Pulse 59 L 02/22/20 05:00 Resp 18 02/22/20 05:00 BP 158/88 02/22/20 05:00 Pulse Ox 96 02/22/20 05:00 Intake & Output 02/21/20 02/22/20 02/22/20 18:59 06:59 18:59 Intake Total 400 Balance 400 Weight 102.058 kg Intake: Oral 400 Other: # Voids 2 - Exam GENERAL: The patient is alert and oriented x3, not in any acute distress. Well developed, well nourished. HEENT: Pupils are round and equally reacting to light. EOMI. No scleral icterus. No conjunctival pallor. Normocephalic, atraumatic. No pharyngeal erythema. No thyromegaly. CARDIOVASCULAR: S1 and S2 present. No murmurs, rubs, or gallops. PULMONARY: Chest is clear to auscultation, no wheezing or crackles. ABDOMEN: Soft, nontender, nondistended, normoactive bowel sounds. No palpable organomegaly. -MUSCULOSKELETAL: No joint swelling or deformity. Low back tenderness EXTREMITIES: No cyanosis, clubbing, or pedal edema. NEUROLOGICAL: Gross neurological examination did not reveal any focal deficits. SKIN: No rashes. no petechiae. - Labs CBC & Chem 7: 02/21/20 16:57 02/21/20 16:57 Labs: Abnormal Lab Results - Last 24 Hours (Table) 02/21/20 Range/Units 16:57 Glucose 108 H (74-99) mg/dL ALT 55 H (4-49) U/L Assessment and Plan Assessment: Lung Cancer status post lumpectomy at [facility] with metastasis to the brain and the spine Lumbar spine pathological fracture with metastasis disease Obesity with body mass index of 36.3 Plan: This is a pleasant 49 years old male with lung cancer with metastasis to the spine and lumbar pathological fracture. Continue with pain management, we will obtain LS brace for his low back. And Benadryl as needed for itching. Consult spine orthopedic team as well as oncology team. Continue with steroids as dexamethasone Labs and medication were reviewed.. Continue same treatment. Continue with symptomatic treatment. Resume home medication. Monitor lytes and vitals. DVT and GI prophylaxis. Further recommendationsas per clinical course of the patient DVT prophylaxis: Subcutaneous heparin GI Prophylaxis: Ppi PT/OT: Pending, will consider after orthopedic evaluation Prognosis is guarded
[2020-02-22] MEDS: HYDROmorphone 1 MG/ML 1 ML SYRINGE IVP PRN ×5 (08:58→22:48)
[2020-02-22] MEDS: diphenhydrAMINE 50 MG/ML 1 ML VIAL IVP PRN (09:02)
[2020-02-22] MEDS: HEPARIN SODIUM,PORCINE 5,000 UNIT/ML 1 ML VIAL SQ SCH ×2 (09:02→20:21)
[2020-02-22] MEDS: FOLIC ACID 1 MG TAB PO SCH (09:02)
[2020-02-22] MEDS: ALPRAZolam 0.25 MG TAB PO PRN ×2 (10:59→20:22)
[2020-02-22] MEDS: MORPHINE SULFATE ER 30 MG TABLET PO SCH ×2 (10:59→15:16)
--- NOTE | 2020-02-22 15:03 | MR ---
EXAMINATION TYPE: MR thoracic spine wo/w con DATE OF EXAM: 02/22/2020 COMPARISON: PET CT February 18, 2020 HISTORY: Progressive spinal mets from lung cancer and pain. TECHNIQUE: Multiplanar, multisequence imaging of thoracic spine is performed without and with IV cont rast, patient injected with 10 cc of gadolinium. FINDINGS: Coronal images show slight levoconvex scoliotic curvature upper to mid thoracic spine. Spin al cord shows normal caliber and signal as it courses the thoracic spine. Vertebral body heights rem ain satisfactory. Multilevel disc desiccation and mild disc space narrowing. Mild to minimal multilev el anterior and lateral spurring. Abnormal heterogeneous diminished T1 signal with enhancement involv ing the T11 vertebra and to lesser degree involving the right T10 vertebra correlates with recent PET /CT. Few scattered prominent Schmorl nodes. Tiny posterior disc herniations efface the anterior theca l sac defect at C7 through the T8-T9 levels along with the T11-T12 level on sagittal images. Review of the axial images shows no significant spinal canal stenosis or neural foraminal narrowing at any thoracic level. No additional significant disc herniation is present. Visualized thorax and up per abdomen show no suspicious abnormality. IMPRESSION: Redemonstration known osseous metastatic disease involving the T11 vertebra and portions of the posterior right T10 vertebra. Slight scoliotic curvature and mild multilevel degenerative gary nges as detailed above. No additional acute findings are evident.
[2020-02-22] MEDS: DEXAMETHASONE SOD PHOSPHATE 4 MG/ML 1 ML VIAL IV SCH ×2 (15:16→20:23)
[2020-02-22] MEDS: LORazepam 0.5 MG TAB PO SCH (20:22)
[2020-02-22] MEDS: SENNOSIDES-DOCUSATE SODIUM 1 EACH TAB PO SCH (20:22)
[2020-02-22] MEDS: HYDROcodone/APAP 10-325MG 1 EACH TAB PO PRN (20:26)
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
[2020-02-23] MEDS: MORPHINE SULFATE ER 30 MG TABLET PO SCH ×4 (00:01→23:52)
[2020-02-23] MEDS: DEXAMETHASONE SOD PHOSPHATE 4 MG/ML 1 ML VIAL IV SCH ×5 (00:03→19:53)
[2020-02-23] MEDS: HYDROmorphone 1 MG/ML 1 ML SYRINGE IVP PRN ×5 (03:57→20:20)
[2020-02-23] MEDS: KETOROLAC 15 MG/ML 1 ML VIAL IVP SCH ×4 (03:57→19:47)
[2020-02-23] MEDS: HYDROcodone/APAP 10-325MG 1 EACH TAB PO PRN ×2 (05:56→14:39)
[2020-02-23] MEDS: SYMBICORT 80-4.5 MCG INHALER INHALATION SCH ×2 (07:44→20:23)
[2020-02-23] MEDS: SENNOSIDES-DOCUSATE SODIUM 1 EACH TAB PO SCH ×2 (07:47→19:47)
[2020-02-23] MEDS: FOLIC ACID 1 MG TAB PO SCH (07:47)
[2020-02-23] MEDS: HEPARIN SODIUM,PORCINE 5,000 UNIT/ML 1 ML VIAL SQ SCH ×2 (07:48→20:02)
[2020-02-23] MEDS: ALPRAZolam 0.25 MG TAB PO PRN (09:13)
[2020-02-23] MEDS: diphenhydrAMINE 50 MG/ML 1 ML VIAL IVP PRN ×2 (12:17→23:55)
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
--- NOTE | 2020-02-23 18:31 | P.PN ---
Subjective Progress Note Date: 02/23/20 Principal diagnosis: Severe pain secondary to progressive bone mets Not much benefit from brace, feels toradol helping although will not be able to continue after discharge. Kyphoplasty offered by ortho, agree this is a resonable option. His pain overall is improved on current regimen of long acting MS COntin. Spoke to Ortho today and Radiation oncology. Planning for Kyphoplas ty. Will decrease Dexamethasone dosage. He has disease limited to bone mets, will defer final decision to Dr. avery on continuing keytruda plus or minus next line chemotherapy. Plan to quickly wean off steroids as he has been on less than 48 hours. Objective - Vital Signs Vital signs: Vital Signs Temp 97.8 F 02/23/20 11:05 Pulse 92 02/23/20 13:41 Resp 18 02/23/20 13:41 BP 167/112 02/23/20 11:05 Pulse Ox 97 02/23/20 11:05 Intake & Output 02/22/20 02/23/20 02/23/20 18:59 06:59 18:59 Intake Total 1080 600 Balance 1080 600 Intake: Oral 1080 600 Other: Voiding Method Toilet Toilet Toilet # Voids 2 1 - Exam Constitutional General appearance: cooperative, no acute distress - EENT Eyes: EOMI, PERRLA ENT: NA/AT, normal oropharynx - Neck Neck: normal ROM - Respiratory Respiratory: bilateral: diminished (lower) - Cardiovascular Rhythm: regular Heart sounds: normal: S1, S2 - Gastrointestinal General gastrointestinal: soft - Integumentary Integumentary: pale - Neurologic Neurologic: CNII-XII intact - Musculoskeletal Musculoskeletal: generalized weakness, right sided weakness - Psychiatric Depressed and anxious Psychiatric: A&O x's 3, appropriate affect - Labs CBC & Chem 7: 02/21/20 16:57 02/21/20 16:57 Assessment and Plan (1) Metastatic adenocarcinoma to lung Current Visit: Yes Status: Acute Code(s): C78.00 - SECONDARY MALIGNANT NEOPLASM OF UNSPECIFIED LUNG SNOMED Code(s): 6639882796306 (2) Cancer associated pain Current Visit: Yes Status: Acute Code(s): G89.3 - NEOPLASM RELATED PAIN (ACUTE) (CHRONIC) SNOMED Code(s): 22855015434811 (3) Lumbar vertebral fracture, pathologic Current Visit: Yes Status: Acute Code(s): M84.48XA - PATHOLOGICAL FRACTURE, OTHER SITE, INIT ENCNTR FOR FRACTURE SNOMED Code(s): 356404314 (4) Pathologic lumbar vertebral fracture Current Visit: Yes Status: Acute Code(s): M84.48XA - PATHOLOGICAL FRACTURE, OTHER SITE, INIT ENCNTR FOR FRACTURE SNOMED Code(s): 973679185 (5) Spinal compression fracture with history of cancer Current Visit: Yes Status: Acute Code(s): LPF0362 - SNOMED Code(s): 62079766 (6) Weak Current Visit: Yes Status: Acute Code(s): R53.1 - WEAKNESS SNOMED Code(s): 29663138 Plan: Discussed case with Dr. Meza from radiation oncology, Discussed with ortho spine as well Hospital bed for his home as been ordered and patient will be sent home with hospital bed and consultation for ongoing palliative care in the home to help with moving and comfort from his metastatic neoplastic related pain. Walker will also be ordered and PT/OT in home Social work consult to assist with financial assistance for current social issues. Plan for Kyphoplasty tomorrow. Review of thoracic MRI, re-demonstration of known progressive bone mets Defer final treatment plan to primary oncologist at discharge Possible palliative radiation to spine if pain continues Continue on MS COntin and Trial MSIR for breakthrough. Bowel Regimen Decrease IV Dilaudid and attempt PO pain management Decrease IV Toradal and Steroids Patients anxiety seems worsened possibly exacerbated by steroids. he is labile in those emotions of aggressive conversation, and tearfullness. Decreasing steroids and continuing to monitor this for improvement. recent MRI of the brain negative for recurrent disease
[2020-02-23] MEDS: LORazepam 0.5 MG TAB PO SCH (19:46)
--- NOTE | 2020-02-23 23:11 | P.PN ---
Subjective This is a pleasant 49 years old male with past medical history of left lung cancer status post lumpectomy on October 2018 at her report, he is following up with Dr. 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 Presents with significant low back pain. MRI done recently showing osseous metastatic disease at L4 and associated pathological fracture of inferior endplate of the fracture with 25% lateral vertebral body height loss and new onset metastasis in the lumbar spine involving L1, L2 and L5, mild to moderate degenerative disc disease also. On the presentation he has back pain about 8/10, currently it is 5/10. He denies any weakness or numbness in the lower extremity, no urine or bowel difficulty or incontinence. No chest pain or headache or altered mental status. No fever. Patient was started on steroids but he refused because he thought it interacts with his chemotherapy. Vital signs reviewed and it looks stable. Also patient coming in from itchiness in the upper extremity with no rash. 02/23/2020 Patient is awake but still complaining of from significant pain in his lower back although there is no neurological deficit and no sensory loss Oncology team recommending decreasing his steroids and IV Dilaudid and continue with MS Contin with possible recommendation for radiotherapy if pain continues. However workup showing L4 compression deformity and orthopedic team recommended vertebral kyphoplasty tomorrow morning CONSTITUTIONAL: No fever, no malaise, no fatigue. HEENT: No recent visual problems or hearing problems. Denied any sore throat. CARDIOVASCULAR: No orthopnea, PND, no palpitations, no syncope. PULMONARY: No shortness of breath, no cough, no hemoptysis. GASTROINTESTINAL: No diarrhea, no nausea, no vomiting, no abdominal pain. Normoactive bowel sounds. NEUROLOGICAL: No headaches, no weakness, no numbness. HEMATOLOGICAL: Denies any bleeding or petechiae. Active Medications Generic Name Dose Route Start Last Admin Trade Name Freq PRN Reason Stop Dose Admin Hydrocodone Bitart/Acetaminophen 1 each 02/22/20 11:27 02/23/20 14:39 Hydrocodone/Apap 10-325mg 1 Each Tab PO 1 each TID PRN Administration Mild Breakthrough Pain Albuterol Sulfate 2.5 mg 02/21/20 20:08 Albuterol Nebulized 2.5 Mg/3 Ml INHALATION RT-QID PRN Shortness Of Breath Alprazolam 0.25 mg 02/21/20 20:08 02/23/20 09:13 Alprazolam 0.25 Mg Tab PO 0.25 mg TID PRN Administration Anxiety Budesonide/Formoterol Fumarate 2 puff 02/22/20 08:00 02/23/20 20:23 Symbicort 80-4.5 Mcg Inhaler INHALATION 2 puff RT-BID MARGARETTE Administration Dexamethasone Sodium Phosphate 4 mg 02/23/20 21:00 02/23/20 19:53 Dexamethasone Sod Phosphate 4 Mg/Ml 1 Ml Vial IV 4 mg Q12HR MARGARETTE Administration Diphenhydramine HCl 25 mg 02/22/20 08:16 02/23/20 12:17 Diphenhydramine 50 Mg/Ml 1 Ml Vial IVP 25 mg Q6HR PRN Administration Allergy Symptoms Folic Acid 1 mg 02/22/20 09:00 02/23/20 07:47 Folic Acid 1 Mg Tab PO 1 mg DAILY MARGARETTE Administration Heparin Sodium (Porcine) 5,000 unit 02/21/20 21:00 02/23/20 20:02 Heparin Sodium,Porcine 5,000 Unit/Ml 1 Ml Vial SQ Not Given Q12HR MARGARETTE Hydromorphone HCl 1 mg 02/21/20 20:03 02/23/20 14:39 Hydromorphone 1 Mg/Ml 1 Ml Syringe IVP 1 mg Q3HR PRN Administration Pain Ibuprofen 800 mg 02/21/20 20:08 Ibuprofen 800 Mg Tab PO Q8H PRN Pain Ketorolac Tromethamine 15 mg 02/21/20 22:00 02/23/20 19:47 Ketorolac 15 Mg/Ml 1 Ml Vial IVP 02/26/20 22:01 15 mg Q6H MARGARETTE Administration Lorazepam 0.5 mg 02/21/20 21:00 02/23/20 19:46 Lorazepam 0.5 Mg Tab PO 0.5 mg HS MARGARETTE Administration Morphine Sulfate 30 mg 02/22/20 16:00 02/23/20 16:51 Morphine Sulfate Er 30 Mg Tablet PO 30 mg Q8HR MARGARETTE Administration Pantoprazole Sodium 40 mg 02/21/20 20:08 Pantoprazole 40 Mg Tablet PO DAILY PRN GI Upset Senna/Docusate Sodium 1 each 02/22/20 21:00 02/23/20 19:47 Sennosides-Docusate Sodium 1 Each Tab PO 1 each BID MARGARETTE Administration Temazepam 15 mg 02/21/20 20:32 Temazepam 15 Mg Cap PO HS PRN Insomnia Objective - Vital Signs Vital signs: Vital Signs Temp 97.8 F 02/23/20 11:05 Pulse 92 02/23/20 13:41 Resp 18 02/23/20 13:41 BP 167/112 02/23/20 11:05 Pulse Ox 97 02/23/20 11:05 Intake & Output 02/22/20 02/23/20 02/23/20 18:59 06:59 18:59 Intake Total 1080 600 Balance 1080 600 Intake: Oral 1080 600 Other: Voiding Method Toilet Toilet Toilet # Voids 2 1 - Exam GENERAL: The patient is alert and oriented x3, not in any acute distress. Well developed, well nourished. HEENT: Pupils are round and equally reacting to light. EOMI. No scleral icterus. No conjunctival pallor. Normocephalic, atraumatic. No pharyngeal erythema. No thyromegaly. CARDIOVASCULAR: S1 and S2 present. No murmurs, rubs, or gallops. PULMONARY: Chest is clear to auscultation, no wheezing or crackles. ABDOMEN: Soft, nontender, nondistended, normoactive bowel sounds. No palpable organomegaly. -MUSCULOSKELETAL: No joint swelling or deformity. Low back tenderness EXTREMITIES: No cyanosis, clubbing, or pedal edema. NEUROLOGICAL: Gross neurological examination did not reveal any focal deficits. SKIN: No rashes. no petechiae. - Labs CBC & Chem 7: 02/21/20 16:57 02/21/20 16:57 Assessment and Plan Assessment: Metastatic bone disease with L4 compression deformity , Secondary to aboveIntractable low back pain Lung Cancer status post lumpectomy at [facility] with metastasis to the brain and the spine Lumbar spine pathological fracture with metastasis disease Obesity with body mass index of 36.3 Plan: This is a pleasant 49 years old male with lung cancer with metastasis to the spine and lumbar pathological fracture. Continue with pain management, due to failure of TLSO brace, orthopedic team recommending kyohoplasty. Follow-up recommendation by oncology team. Decreased downloaded and dexamethasone. Continue MS Contin. Continued with both a direct Labs and medication were reviewed.. Continue same treatment. Continue with symptomatic treatment. Resume home medication. Monitor lytes and vitals. DVT and GI prophylaxis. Further recommendationsas per clinical course of the patien t DVT prophylaxis: Subcutaneous heparin GI Prophylaxis: Ppi Prognosis is guarded
[2020-02-24] MEDS: KETOROLAC 15 MG/ML 1 ML VIAL IVP SCH ×4 (04:19→21:53)
[2020-02-24] MEDS: HYDROmorphone 1 MG/ML 1 ML SYRINGE IVP PRN ×5 (05:39→20:51)
[2020-02-24] MEDS: ALPRAZolam 0.25 MG TAB PO PRN ×2 (06:19→15:00)
[2020-02-24 06:43] LABS: Basophils % (A) 0 %; Eosinophils # (A) 0.1 k/uL (0-0.7); Eosinophils % (A) 0 %; HCT 49.8 % (39.0-53.0); Lymphocytes # (A) 1.9 k/uL (1.0-4.8); Lymphocytes % (A) 9 %; MCH 30.3 pg (25.0-35.0); MCHC 32.1 g/dL (31.0-37.0); MCV 94.4 fL (80.0-100.0); Mean Platelet Volume 8.9; Monocytes # (A) 0.8 k/uL (0-1.0); Monocytes % (A) 4 %; Neutrophils # (A) 17.3 k/uL (1.3-7.7); Neutrophils % (A) 86 %; Platelet Count 334 k/uL (150-450); RBC 5.27 m/uL (4.30-5.90); RDW 12.7 % (11.5-15.5); WBC 20.2 k/uL (3.8-10.6)
[2020-02-24] MEDS ORDERED: LACTATED RINGERS 1,000 ML IV ONE (08:03)
[2020-02-24] MEDS ORDERED: ONDANSETRON 4 MG/2 ML VIAL ONE (08:15)
[2020-02-24 08:21] LABS: Glucose,Whole Blood 144 mg/dL (75-99)
[2020-02-24] MEDS ORDERED: MIDAZOLAM 2 MG/2 ML VIAL IVP ONE (08:23)
[2020-02-24] MEDS ORDERED: diphenhydrAMINE 50 MG/ML 1 ML VIAL IVP ONE (08:23)
[2020-02-24] MEDS ORDERED: ONDANSETRON 4 MG/2 ML VIAL IVP ONE (08:23)
[2020-02-24] MEDS: SYMBICORT 80-4.5 MCG INHALER INHALATION SCH ×2 (08:29→19:25)
[2020-02-24] MEDS ORDERED: LIDOCAINE 1% INJ 10MG/ML (20 ML MDV) ONE (08:52)
[2020-02-24] MEDS ORDERED: MIDAZOLAM 2 MG/2 ML VIAL ONE (08:52)
[2020-02-24] MEDS ORDERED: NEOSTIGMINE 1 MG/ML 10 ML VIAL ONE (08:52)
[2020-02-24] MEDS ORDERED: fentaNYL (PF) 50 MCG/ML 2 ML AMP ONE (08:52)
[2020-02-24] MEDS ORDERED: GLYCOPYRROLATE 0.2 MG/ML 2 ML VIAL ONE (08:52)
[2020-02-24] MEDS ORDERED: SUCCINYLCHOLINE CHLORIDE 100 MG/5 ML SYR IV ONE (08:52)
[2020-02-24] MEDS ORDERED: ROCURONIUM 10 MG/ML (10 ML VIAL) IV ONE (08:52)
[2020-02-24] MEDS ORDERED: PROPOFOL 10 MG/ML 20 ML VIAL IV ONE (08:52)
[2020-02-24] MEDS ORDERED: ceFAZolin 1,000 MG VIAL IVPB ONE (09:17)
[2020-02-24] MEDS ORDERED: IOPAMIDOL-370 50ML BTL MISCELLANE ONE (09:18)
[2020-02-24] MEDS ORDERED: BUPIVACAIN-EPI 0.5%-1:200,000 30 ML VIAL SQ ONE (09:18)
[2020-02-24] MEDS: DEXAMETHASONE SOD PHOSPHATE 4 MG/ML 1 ML VIAL IV SCH ×2 (09:55→20:43)
[2020-02-24] MEDS: MORPHINE SULFATE ER 30 MG TABLET PO SCH ×3 (09:55→23:37)
[2020-02-24] MEDS: FOLIC ACID 1 MG TAB PO SCH (09:55)
[2020-02-24] MEDS: SENNOSIDES-DOCUSATE SODIUM 1 EACH TAB PO SCH ×3 (09:56→20:48)
[2020-02-24] MEDS: HEPARIN SODIUM,PORCINE 5,000 UNIT/ML 1 ML VIAL SQ SCH ×2 (09:56→20:43)
[2020-02-24] MEDS ORDERED: BENZOCAINE/MENTHOL LOZENG 1 EACH LOZENGE MUCOUS MEM PRN (10:12)
[2020-02-24] MEDS ORDERED: HYDROmorphone 0.5 MG/0.5 ML SYRINGE IVP PRN (10:12)
[2020-02-24] MEDS ORDERED: HYDROmorphone 1 MG/ML 1 ML SYRINGE IVP PRN (10:12)
[2020-02-24] MEDS ORDERED: HYDROcodone/APAP 5-325MG 1 EACH TAB PO PRN ×2 (10:12)
--- NOTE | 2020-02-24 10:19 | P.OP ---
Date of Procedure: 02/24/20 Preoperative Diagnosis: L4 pathologic compression fracture Low back pain Metastatic lung CA Postoperative Diagnosis: Same Anesthesia: GETA Pathology: other (L4 vertebral body biopsy sent to pathology) Condition: stable Disposition: PACU Description of Procedure: BRIEF OPERATIVE NOTE Preoperative Diagnosis: L4 pathologic compression fracture Low back pain Metastatic lung CA Postoperative Diagnosis: Same Procedure: Kyphoplasty of L4 Vertebral body biopsy of L4 Use of biplanar fluoroscopic guidance Surgeon: Dr. Willoughby Clerical Production Worker: None Anesthesia: General anesthesia Estimated blood loss: Less than 10 mL Specimen: Vertebral body biopsy of L4 sent to pathology in formalin Complications: None apparent Components implanted: Bone cement approximate 700 mL Disposition: To recovery room in good stable condition. OPERATIVE INDICATIONS The patient has been having issues in their back for the past several weeks. He had been having some back soreness and has history of metastatic lung cancer. He says that about a month ago he had to jump out of the way of a car and had had increased pain since that time. His pain is worsening and he was essentially incapacitated due to his pain in his lower back. He was found have a compression deformity at L4 and evidence of pathologic change within the vertebral bodies at L4-L5 and of the vertebral bodies. He has been having workup in regards to metastasis. We were involved in regards to the pain and the fracture at L4. We attempted conservative treatment with bracing and medication the patient was not having any significant response was not tolerating his brace in terms of his pain or mobility. The patient has been through conservative treatment. They attempted conservative care with bracing however they're not having any benefit despite brace use. They continue to have significant pain and debility due to their fracture. We discussed various treatment options including surgery, and the idea that surgery could stabilize the fracture as well as obtain tissue biopsy at the L4 vertebrae and the patient wishes to proceed with surgery We discussed the risk, patient's alternatives and benefits of surgery including but not limited to, risk of bleeding risk of infection, risk of need for further surgery, risk of decreased, loss of motion, loss of function, cement extravasation, nerve damage, paralysis, heart attack, blindness and . OPERATIVE SUMMARY After discussing all the risks, patient alternatives and benefits at length, the patient elected to proceed with surgical intervention, signed informed consent, and presented for their procedure. The patient was seen and examined in the preoperative holding area and the surgical site was marked. The patient was given antibiotics and brought to the operating room. The patient was sedated and intubated by anesthesia in standard fashion. The patient was positioned on to the operating room table in a prone position on the appropriate well-padded and well molded bilateral chest rolls. We were careful to pad any bony prominences and pressure points. We were careful to maintain the patient's cervical spine and good neutral alignment and position throughout. We used 2 C-arm machines to establish biplanar fluoroscopic guidance in AP and lateral positions. We were able to localize the fractures appropriately. The patient was prepped and draped in a normal standard fashion. An appropriate timeout and keystone protocol performed. We were able to proceed with the surgery. The local wound area was infiltrated with local anesthetic. An incision was made over the lateral aspect of the pedicle over the appropriate levels with a small 2 mm stab incision at L4 bilaterally over the pedicles. Intraoperative fluoroscopy was taken which showed a marker at the appropriate level. With the appropriate level positively confirmed, I was able to position a sharp trocar over the lateral aspect of the pedicle first on the left left side and then on the right. As able to advance the trocar into the pedicle and into the posterior aspect of vertebral body being careful to avoid penetration cephalad caudad or medially. The trocar was placed appropriately into the posterior aspect of vertebral body at the appropriate levels. This was confirmed with C-arm guidance. With the trocar intact I was then able to take a bone biopsy with a biopsy punch or a bony drill. The biopsy specimen was passed off to be sent to pathology in formalin. I was then able to place the kyphoplasty balloon within the vertebral body of L4. The position was checked on C-arm. I was able to inflate the balloon under low pressure and visualization with C-arm. The balloon was well enclosed within the vertebral body. The cement was prepared. With the cement at appropriate working condition the balloons were deflated and removed. I was able to place bony cement with trocar with the cement delivery device under low pressure. It had good fill within the vertebral body. There is no evidence of any extravasation of the cement posteriorly toward the canal. The cement was well contained at the appropriate levels. The cement was allowed to cure appropriately. The trochars removed and final images were taken on C-arm. This showed the cement at the appropriate levels of L4. We were able to proceed with closure. The wound was cleaned and dried and dressed with the appropriate dressing. The drapes were broken down. The patient was gently rolled back onto their hospital bed being careful to maintain their cervical spine and good neutral alignment and position. They were woken up by anesthesia, extubated, and brought to the recovery room in good stable condition. The patient will be admitted to the hospital for observation and for appropriate postoperative care, medical management and monitoring. We will continue to follow them closely about the postoperative course.
[2020-02-24 10:20] VITALS: RESP 16
--- NOTE | 2020-02-24 10:54 | FL ---
EXAMINATION TYPE: FL guidance operating room DATE OF EXAM: 02/24/2020 HISTORY: Fluoroscopy time 74 seconds of fluoroscopy provided. IMPRESSION: 1. Fluoroscopy time.
--- NOTE | 2020-02-24 10:54 | XR ---
EXAMINATION TYPE: XR lumbar spine 1V DATE OF EXAM: 02/24/2020 COMPARISON: NONE HISTORY: Lumbar kyphoplasty TECHNIQUE: 4 intraoperative views submitted. FINDINGS: Limited views demonstrate a vertebral segment compatible with vertebroplasty. IMPRESSION: See above
[2020-02-24 11:56] LABS: African American GFR (CKD) 90.2 (60.0-200.0); Albumin 4.8 g/dL (3.80-4.90); Albumin/Globulin Ratio 1.78 (1.60-3.17); Anion Gap 15.1 mmol/L (4.00-12.00); BUN/Creat Ratio 21.82 Ratio (12.00-20.00); Calcium 9.4 mg/dL (8.7-10.3); Carbon Dioxide 19.9 mmol/L (21.6-31.8); Globulin 2.7 g/dL (1.6-3.3); Non-African American GFR(CKD) 77.9 (60.0-200.0); Potassium 4.7 mmol/L (3.5-5.5); Total Bilirubin 1.1 mg/dL (0.2-1.2); Total Protein 7.5 g/dL (6.2-8.2)
--- NOTE | 2020-02-24 12:59 | P.CONS ---
History of Present Illness - Reason for Consult Consult date: 02/23/20 bone metastases - pain Requesting physician: Addy Montoya - Chief Complaint lower back pain, difficulty with ambulation - History of Present Illness The patient is a 49-year-old male with a history of a stage MILLER (pT3, pN2, M1b) adenocarcinoma of the left upper lung. The patient presented with a solitary brain metastasis in the left frontal region. He underwent a single fraction of SRS to the lesion finishing 09/24/18. He then underwent resection of his primary followed by adjuvant chemotherapy/immunotherapy. He was just recently found to have a new lesion in L4 and a single brain metastasis. He underwent SBRT to the spinal lesion 24 Gy in 2 fractions finishing on 10/29/19 and SRS in a 1 fraction to the right parietal lesion finishing on 11/10/19. He was subsequently found to have a punctate right occipital lesion which was treated with SRS on 01/21/2020. Since our last visit with the patient, he unfortunately has had new difficulties arise. He reports that approximately 3 weeks ago, he began to have an exacerbation of his chronic low back pain. He states that he was noticing more pain just below the rib cage in the mid back, as well as his more typical pain in the lower spine. He has had no difficulty with bladder bowel changes, and notes he is still able to ambulate but with pain. He denies difficulty with numbness or tingling of the bilateral lower extremities or the saddle region. Medical oncology started the patient's workup last week ordering an MRI of the lumbar spine on February 16. This revealed the known L4 metastasis with some evidence of pathologic fracture, as well as new lesions in L1, L2 and L5. The patient also had a PET/CT the following day on February 17 showing progression in the lumbar spine consistent with the MRI as well as new lesions in T11, T12 and the left acetabulum. The patient was subsequently sent to the hospital secondary to difficulty with pain control and ambulation. While in the hospital, he underwent an MRI of the thoracic spine on February 21 showing enhancing lesions at T10 and T11. There was no evidence of spinal cord compression. The patient was evaluated by orthopedics, and it was felt he may benefit from a kyphoplasty at L4. Review of Systems Constitutional: Denies chills, Denies fever Eyes: denies blurred vision Ears: deny: decreased hearing Ears, nose, mouth and throat: Denies headache Cardiovascular: Denies chest pain Respiratory: Denies cough Gastrointestinal: Denies constipation, Denies diarrhea Genitourinary: Denies dysuria Musculoskeletal: Reports gait dysfunction, Reports low back pain Integumentary: Denies rash Neurological: Denies aphasia, Denies ataxia, Denies burning pain, Denies confusion, Denies convulsions, Denies numbness, Denies paralysis Psychiatric: Reports anxiety Past Medical History Past Medical History: Cancer, Pneumonia Additional Past Medical History / Comment(s): Hx bells palsy (July 2017), left lung cancer with lobectomy October 2018 ([facility]), states spot of cancer on brain-received radiation tx (September 2018)., pneumonia (07/2018), has cataract right eye. History of Any Multi-Drug Resistant Organisms: None Reported Past Surgical History: No Surgical Hx Reported Additional Past Surgical History / Comment(s): oral surgery, vasectomy, left lung lobectomy (October 2018 @ [facility]) Past Anesthesia/Blood Transfusion Reactions: No Reported Reaction Past Psychological History: No Psychological Hx Reported Smoking Status: Former smoker Past Alcohol Use History: Rare Additional Past Alcohol Use History / Comment(s): quit smoking 2000., started smoking age 15, smoked 1ppd. Past Drug Use History: Marijuana Additional Drug Use History / Comment(s): Patient uses marijuana daily for pain - Past Family History Father Family Medical History: Renal Disease Additional Family Medical History / Comment(s): . Medications and Allergies Home Medications Medication Instructions Recorded Confirmed Type ALPRAZolam [Xanax] 0.25 mg PO TID PRN 02/21/20 02/21/20 History Albuterol Sulfate [Albuterol 2 puff PO RT-QID PRN 02/21/20 02/21/20 History Sulfate Hfa] Folic Acid 1 mg PO DAILY 02/21/20 02/21/20 History Hydrocodone/Acetaminophen [[place] 1 tab PO TID 02/21/20 02/21/20 History 10-325] Ibuprofen [Motrin] 800 mg PO Q8H PRN 02/21/20 02/21/20 History Mometasone/Formoterol [[place] 100 2 puff PO RT-BID 02/21/20 02/21/20 History Mcg-5 Mcg Inhaler] Morphine Sulfate [Morphine Sulfate 30 mg PO BID 02/21/20 02/21/20 History ER] Omeprazole 40 mg PO DAILY PRN 02/21/20 02/21/20 History Sildenafil Citrate 50 mg PO DAILY PRN 02/21/20 02/21/20 History HYDROcodone/APAP 5-325MG [[place] 5] 1 each PO Q6HR PRN #28 tab 02/24/20 Rx Allergies Allergy/AdvReac Type Severity Reaction Status Date / Time No Known Allergies Allergy Verified 02/24/20 07:55 Physical Exam Vitals: Vital Signs Temp Pulse Pulse Resp BP Pulse Ox 02/24/20 12:25 60 150/87 98 02/24/20 11:00 61 133/73 02/24/20 10:48 64 16 149/74 97 02/24/20 10:33 83 16 150/75 96 02/24/20 10:15 69 16 166/88 97 02/24/20 10:07 97.8 F 80 18 164/87 97 02/24/20 08:35 70 14 137/76 97 02/24/20 07:51 98.9 F 81 16 153/89 94 L 02/24/20 04:16 97.6 F 81 18 174/96 96 02/24/20 00:00 18 02/23/20 20:26 97.6 F 98 18 158/94 93 L 02/23/20 13:41 92 18 Intake and Output 02/23/20 02/24/20 02/24/20 22:59 06:59 14:59 Intake Total 250 350 750 Output Total 5 Balance 250 350 745 Intake: IV 750 Oral 250 350 Output: Estimated Blood Loss 5 Other: Voiding Method Toilet Toilet # Voids 1 1 # Bowel Movements 0 0 - Constitutional General appearance: no acute distress - EENT Eyes: EOMI, PERRLA - Neck Neck: no lymphadenopathy - Respiratory Respiratory: bilateral: CTA - Cardiovascular Rhythm: regular - Gastrointestinal General gastrointestinal: no distended - Neurologic Neurologic: CNII-XII intact - Musculoskeletal Musculoskeletal: strength equal bilaterally - Psychiatric Psychiatric: A&O x's 3, appropriate affect Results CBC & Chem 7: 02/24/20 06:25 02/24/20 06:25 Labs: Abnormal Lab Results - Last 24 Hours (Table) 02/24/20 02/24/20 02/24/20 Range/Units 06:25 06:25 08:19 WBC 20.2 H (3.8-10.6) k/uL Neutrophils # 17.3 H (1.3-7.7) k/uL Carbon Dioxide 19.9 L (21.6-31.8) mmol/L Anion Gap 15.10 H (4.00-12.00) mmol/L BUN/Creatinine Ratio 21.82 H (12.00-20.00) Ratio Glucose 169 H (70-110) mg/dL POC Glucose (mg/dL) 144 H (75-99) mg/dL ALT 66 H (10-49) U/L Assessment and Plan Plan: The patient is a 49-year-old male with a history of a stage MILLER (pT3, pN2, M1b) adenocarcinoma of the left upper lung. The patient presented with a solitary brain metastasis in the left frontal region. He underwent a single fraction of SRS to the lesion finishing 09/24/18. He then underwent resection of his primary followed by adjuvant chemotherapy/immunotherapy. He was just recently found to have a new lesion in L4 and a single brain metastasis. He underwent SBRT to the spinal lesion 24 Gy in 2 fractions finishing on 10/29/19 and SRS in a 1 fraction to the right parietal lesion finishing on 11/10/19. He was subsequently found to have a punctate right occipital lesion which was treated with SRS on 01/21/2020. He now presents with progressive disease in the T/L spine. The patient's most recent imaging is suggestive of significant bony disease progression including the lower thoracic and most of the lumbar spine. His previously treated L4 lesion actually looks improved on imaging, but that he may now have some compression deformity at this area. It was felt he may benefit from kyphoplasty, which I feel is reasonable in his case. I discussed with the patient that he would likely require palliative radiotherapy to this region after said procedure. I explained that the palliative treatment would include the lower thoracic spine and entire lumbar spine. I explained the patient would first undergo CT simulation for treatment planning. Treatment would be delivered Friday through Friday, 5 days a week for approximately 1 week. I discussed with the patient that are not typical side effects include, but are not limited to; fatigue, skin irritation, loose stools, and low risk of radiation nerve injury when taking into account the patient's prior radiation. I will reevaluate the patient on Friday after his procedure , to see if we can initiate treatment planning. Of note, the patient has been on immunotherapy, and will likely now need to transition to his a subsequent line of therapy. Time with Patient: Greater than 30
[2020-02-24] MEDS: SODIUM CHLORIDE 0.9% 1,000 ML IV SCH ×2 (16:14→21:56)
[2020-02-24] MEDS: HYDROcodone/APAP 10-325MG 1 EACH TAB PO PRN (17:40)
[2020-02-24] MEDS: diphenhydrAMINE 50 MG/ML 1 ML VIAL IVP PRN (17:44)
[2020-02-24] MEDS: LORazepam 0.5 MG TAB PO SCH (20:43)
[2020-02-24 21:05] VITALS: PULSE 67
[2020-02-25] MEDS: KETOROLAC 15 MG/ML 1 ML VIAL IVP SCH ×2 (03:58→09:49)
[2020-02-25 05:19] VITALS: BP 142/87; TEMP 97.9
[2020-02-25] MEDS: HYDROmorphone 1 MG/ML 1 ML SYRINGE IVP PRN (06:17)
[2020-02-25] MEDS: DEXAMETHASONE SOD PHOSPHATE 4 MG/ML 1 ML VIAL IV SCH (07:56)
[2020-02-25] MEDS: MORPHINE SULFATE ER 30 MG TABLET PO SCH (07:56)
[2020-02-25] MEDS: FOLIC ACID 1 MG TAB PO SCH (07:57)
[2020-02-25] MEDS: SENNOSIDES-DOCUSATE SODIUM 1 EACH TAB PO SCH (07:57)
[2020-02-25] MEDS: HEPARIN SODIUM,PORCINE 5,000 UNIT/ML 1 ML VIAL SQ SCH (07:57)
--- NOTE | 2020-02-25 07:57 | P.PN ---
Progress Note - Text Progress Note Date: 02/25/20 Postoperative day #1 Patient is seen and examined today at bedside. The patient has some pain around the surgical site as expected. He feels his pain had good improvement yesterday after the surgery. He is having some spasm this morning after getting up. His legs are doing well. Pain is being controlled with medication. Physical Exam Afebrile with stable vital signs Abdomen is soft nontender. Chest has good excursion deep and space expiration The incision site is clean dry and intact. No erythema there is no purulence. There is some bloody drainage but the wound site is stable at this point Extremities have not had neurologic change from prior to surgery. He has sustained dorsal flexion plantar flexion and EHL intact Calves and thighs were soft nontender without evidence of DVT. Assessment/Plan Postoperative day #1 status post L4 vertebral kyphoplasty and biopsy Patient is progressing as expected from the surgery. He had some benefit with his pain yesterday but is having some spasms. I think that the L4 vertebral body is stable and is okay for him to mobilize to his tolerance. From a spine standpoint it is okay from the discharged to home whenever he is comfortable and cleared with medicine. We will continue to increase the patient's mobilization with therapy. We will continue pain control with oral or IV medications. We can follow him on an outpatient basis in 2-3 weeks.
[2020-02-25] MEDS: SYMBICORT 80-4.5 MCG INHALER INHALATION SCH (08:25)
[2020-02-25] MEDS ORDERED: SENNOSIDES-DOCUSATE SODIUM 1 EACH TAB PO SCH (09:00)
--- NOTE | 2020-02-25 10:31 | P.PN ---
Subjective This is a pleasant 49 years old male with past medical history of left lung cancer status post lumpectomy on October 2018 at her report, he is following up with Dr. 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 Presents with significant low back pain. MRI done recently showing osseous metastatic disease at L4 and associated pathological fracture of inferior endplate of the fracture with 25% lateral vertebral body height loss and new onset metastasis in the lumbar spine involving L1, L2 and L5, mild to moderate degenerative disc disease also. On the presentation he has back pain about 8/10, currently it is 5/10. He denies any weakness or numbness in the lower extremity, no urine or bowel difficulty or incontinence. No chest pain or headache or altered mental status. No fever. Patient was started on steroids but he refused because he thought it interacts with his chemotherapy. Vital signs reviewed and it looks stable. Also patient coming in from itchiness in the upper extremity with no rash. 02/23/2020 Patient is awake but still complaining of from significant pain in his lower back although there is no neurological deficit and no sensory loss Oncology team recommending decreasing his steroids and IV Dilaudid and continue with MS Contin with possible recommendation for radiotherapy if pain continues. However workup showing L4 compression deformity and orthopedic team recommended vertebral kyphoplasty tomorrow morning 02/24/2020 Patient is a status post kyphoplasty by orthopedic team. Today is postoperative day #0 Postprocedure patient is sleeping in bed most of the day Is hemodynamically stable and labs reviewed. He has leukocytosis which could be reactive, keep monitoring no need for antibiotics for now as patient is afebrile and nonspecific symptom. Also he is on steroids Oncology had radiation oncology on case as well Discussed with staff Objective - Vital Signs Vital signs: Vital Signs Temp 97.8 F 02/24/20 10:07 Pulse 60 02/24/20 12:25 Resp 16 02/24/20 10:48 BP 150/87 02/24/20 12:25 Pulse Ox 98 02/24/20 12:25 Intake & Output 02/23/20 02/24/20 02/24/20 18:59 06:59 18:59 Intake Total 600 600 750 Output Total 5 Balance 600 600 745 Intake: IV 750 Oral 600 600 Output: Estimated Blood Loss 5 Other: Voiding Method Toilet Toilet # Voids 1 # Bowel Movements 0 - Exam GENERAL: The patient is alert and oriented x3, not in any acute distress. Well developed, well nourished. HEENT: Pupils are round and equally reacting to light. EOMI. No scleral icterus. No conjunctival pallor. Normocephalic, atraumatic. No pharyngeal erythema. No thyromegaly. CARDIOVASCULAR: S1 and S2 present. No murmurs, rubs, or gallops. PULMONARY: Chest is clear to auscultation, no wheezing or crackles. ABDOMEN: Soft, nontender, nondistended, normoactive bowel sounds. No palpable organomegaly. -MUSCULOSKELETAL: No joint swelling or deformity. Low back tenderness EXTREMITIES: No cyanosis, clubbing, or pedal edema. NEUROLOGICAL: Gross neurological examination did not reveal any focal deficits. SKIN: No rashes. no petechiae. - Labs CBC & Chem 7: 02/24/20 06:25 02/24/20 06:25 Labs: Abnormal Lab Results - Last 24 Hours (Table) 02/24/20 02/24/20 02/24/20 Range/Units 06:25 06:25 08:19 WBC 20.2 H (3.8-10.6) k/uL Neutrophils # 17.3 H (1.3-7.7) k/uL Carbon Dioxide 19.9 L (21.6-31.8) mmol/L Anion Gap 15.10 H (4.00-12.00) mmol/L BUN/Creatinine Ratio 21.82 H (12.00-20.00) Ratio Glucose 169 H (70-110) mg/dL POC Glucose (mg/dL) 144 H (75-99) mg/dL ALT 66 H (10-49) U/L Assessment and Plan Assessment: Metastatic bone disease with L4 compression deformity , Secondary to aboveIntractable low back pain Lung Cancer status post lumpectomy at [facility] with metastasis to the brain and the spine Lumbar spine pathological fracture with metastasis disease Obesity with body mass index of 36.3 Plan: This is a pleasant 49 years old male with lung cancer with metastasis to the spine and lumbar pathological fracture. Continue with pain management, due to failure of TLSO brace, orthopedic team recommending kyohoplasty. Follow-up recommendation by oncology team. Decreased downloaded and dexamethasone. Continue MS Contin. Continued with both a direct Labs and medication were reviewed.. Continue same treatment. Continue with symptomatic treatment. Resume home medication. Monitor lytes and vitals. DVT and GI prophylaxis. Further recommendationsas per clinical course of the patient DVT prophylaxis: Subcutaneous heparin GI Prophylaxis: Ppi Prognosis is guarded
--- NOTE | 2020-02-25 16:57 | DS ---
DISCHARGE SUMMARY DATE OF SERVICE: 02/25/2020 FINAL DIAGNOSES: 1. Metastatic bone disease at L4 with L4 compression deformity with severe pain. 2. Severe gait dysfunction. 3. Left upper lung adenocarcinoma with metastases, status post left lobectomy in [facility] with metastatic cysts to the brain and spine. 4. Obesity with body mass index of 36.3. DISCHARGE DISPOSITION: The patient will be discharged in stable condition with guarded prognosis. HISTORY OF PRESENT ILLNESS: This 49-year-old gentleman with a past medical history of multiple medical problems was admitted with severe pain. Metastatic bone disease was diagnosed and the patient was treated symptomatically. The patient was seen by multiple consultants, including Hematology/Oncology and Radiation Oncology and Back Surgery, Dr. Willoughby. The medications were adjusted. Patient improved significantly. On exam, vitals are stable. CARDIOVASCULAR SYSTEM: S1, S2 muffled. ABDOMEN: Soft. NERVOUS SYSTEM: No focal deficit. DISCHARGE ADVICE AND MEDICATIONS: 1. Discharge diet is cardiac. 2. Activity limited until followup. 3. Follow up with Dr. Tompkins in 2-3 days. 4. Follow up with Dr. Willoughby as recommended. 5. Albuterol p.r.n. 6. Dulera 2 puffs b.i.d. 7. Folic acid 1 mg daily. 8. Morphine sulfate 30 mg p.o. b.i.d. 9. Motrin 800 mg q.8 p.r.n. 10.Hydrocodone 1 tablet p.o. t.i.d. 11.Omeprazole 40 mg daily. 12.Sildenafil 50 mg p.o. daily p.r.n. 13.Xanax 0.25 mg t.i.d. 14.Dexamethasone 4 mg p.o. daily for 1 week. 15.CBC, BMP in 2-3 days. 16.[place] 5 mg q.6 p.r.n. 17.Senna p.r.n. 18.Follow up with Hematology/Oncology as recommended. MMODL / IJN: [id number] /
--- NOTE | 2020-02-25 22:27 | P.PN ---
Subjective Progress Note Date: 02/25/20 Principal diagnosis: Severe pain secondary to progressive bone mets Status Post Kyphoplasty, surgical pain as expected but otherwise ok His pain is better controlled and was able to walk hallway today. Objective - Vital Signs Vital signs: Vital Signs Temp 97.9 F 02/25/20 05:00 Pulse 67 02/25/20 05:00 Resp 16 02/25/20 05:00 BP 142/87 02/25/20 05:00 Pulse Ox 98 02/25/20 05:00 Intake & Output 02/24/20 02/25/20 02/25/20 18:59 06:59 18:59 Intake Total 750 Output Total 5 Balance 745 Intake: IV 750 Output: Estimated Blood Loss 5 Other: Voiding Method Toilet Toilet Toilet # Voids 0 # Bowel Movements 0 - Exam Constitutional General appearance: cooperative, no acute distress - EENT Eyes: EOMI, PERRLA ENT: NA/AT, normal oropharynx - Neck Neck: normal ROM - Respiratory Respiratory: bilateral: diminished (lower) - Cardiovascular Rhythm: regular Heart sounds: normal: S1, S2 - Gastrointestinal General gastrointestinal: soft - Integumentary Integumentary: pale - Neurologic Neurologic: CNII-XII intact - Musculoskeletal Musculoskeletal: generalized weakness, right sided weakness - Psychiatric Depressed and anxious Psychiatric: A&O x's 3, appropriate affect - Labs CBC & Chem 7: 02/24/20 06:25 02/24/20 06:25 Assessment and Plan (1) Metastatic adenocarcinoma to lung Status: Acute Code(s): C78.00 - SECONDARY MALIGNANT NEOPLASM OF UNSPECIFIED LUNG SNOMED Code(s): 0471953207487 (2) Cancer associated pain Status: Acute Code(s): G89.3 - NEOPLASM RELATED PAIN (ACUTE) (CHRONIC) SNOMED Code(s): 11287645610479 (3) Lumbar vertebral fracture, pathologic Status: Acute Code(s): M84.48XA - PATHOLOGICAL FRACTURE, OTHER SITE, INIT ENCNTR FOR FRACTURE SNOMED Code(s): 546729271 (4) Pathologic lumbar vertebral fracture Status: Acute Code(s): M84.48XA - PATHOLOGICAL FRACTURE, OTHER SITE, INIT ENCNTR FOR FRACTURE SNOMED Code(s): 542156795 (5) Spinal compression fracture with history of cancer Status: Acute Code(s): UTO5003 - SNOMED Code(s): 55040824 (6) Weak Status: Acute Code(s): R53.1 - WEAKNESS SNOMED Code(s): 19004234 Plan: Discussed case with Dr. Meza from radiation oncology, Discussed with ortho spine as well Hospital bed for his home as been ordered and patient will be sent home with hospital bed and consultation for ongoing palliative care in the home to help with moving and comfort from his metastatic neoplastic related pain. Walker will also be ordered and PT/OT in home Social work consult to assist with financial assistance for current social issues. Plan for Kyphoplasty tomorrow. Review of thoracic MRI, re-demonstration of known progressive bone mets Defer final treatment plan to primary oncologist at discharge Possible palliative radiation to spine if pain continues Continue on MS Contin and Trial MSIR for breakthrough. Bowel Regimen Decrease IV Dilaudid and attempt PO pain management Decrease IV Toradal and Steroids Patients anxiety seems worsened possibly exacerbated by steroids. he is labile in those emotions of aggressive conversation, and tearfullness. Decreasing steroids and continuing to monitor this for improvement. recent MRI of the brain negative for recurrent disease PLan: 02/24 - Discharge home today - Follow-up in office with primary oncologist Dr. Calhoun within 1-2 weeks for next plan of treatment - Status POst Palliative Kyphoplasty - COntinue on Long Acting MS COntin and breakthrough pain medication
== END 2020-02-25 13:08 | disposition home or self-care (01) | DRG 478 ==
LOC: EC 16:05 → 6NMEDSUR 17:36
PROVIDERS: ADMIT Hospitalist; ATTEND Hospitalist
PROC: 0QB00ZX Excision of Lumbar Vertebra, Open Approach, Diagnostic (ICD-10-PCS; principal; 2020-02-24 08:30)
PROC: 0QU03JZ Supplement Lumbar Vertebra with Synthetic Substitute, Percutaneous Approach (ICD-10-PCS; principal; 2020-02-24 08:30)
PROC: 0QS03ZZ Reposition Lumbar Vertebra, Percutaneous Approach (ICD-10-PCS; principal; 2020-02-24 08:30)
DX: C79.51 Secondary malignant neoplasm of bone (principal); M84.58XA Pathological fracture in neoplastic disease, other specified site, initial encounter for fracture; C79.31 Secondary malignant neoplasm of brain; E66.9 Obesity, unspecified; G51.0 Bell's palsy; I25.10 Atherosclerotic heart disease of native coronary artery without angina pectoris; G89.3 Neoplasm related pain (acute) (chronic); Z87.891 Personal history of nicotine dependence; Z79.51 Long term (current) use of inhaled steroids; Z68.36 Body mass index [BMI] 36.0-36.9, adult; Z79.899 Other long term (current) drug therapy; Z86.73 Personal history of transient ischemic attack (TIA), and cerebral infarction without residual deficits; Z87.01 Personal history of pneumonia (recurrent); Z90.89 Acquired absence of other organs; Z84.1 Family history of disorders of kidney and ureter; Z92.3 Personal history of irradiation; Z85.118 Personal history of other malignant neoplasm of bronchus and lung
CPT/HCPCS: 36415; 72020; 72157; 80053; 81003; 82550; 83735; 84100; 84484; 85025; 85610; 85730; 88307; 88311; 88341; 88342; 93005; 94640; 96360; 96372; 99285

== ENCOUNTER → 2020-05-09 | Outpatient (CLI) | payer OTHER ==
--- NOTE | 2020-05-09 17:10 | MR ---
EXAMINATION TYPE: MR brain wo/w con DATE OF EXAM: 05/09/2020 COMPARISON: 02/16/2020, 12/29/2019 HISTORY: 49-year-old male Dizziness, bilateral leg weakness, history of cancer TECHNIQUE: Multiplanar, multisequence images of the brain and brainstem were acquired before and aft er administration of 10 mL IV Gadavist. Diffusion weighted imaging is performed. FINDINGS: No evidence for acute infarction, mass effect, midline shift, herniation, effacement of basal cistern s, or extra-axial fluid collection. The ventricles and sulci are age-appropriate. Small enhancing lesion within the right occipital parietal junction measuring 4.5 mm versus 3 mm on 1 and retrospect. The previous ring-enhancing lesion along the right paramedian posterior midline at the level of the a tria of the lateral ventricles is no longer clearly identified. It would have been on axial image 43. An 8 mm enhancing lesion posterior superior left paramedian cerebellum is larger compared to 5 mm, pr eviously. No additional suspicious enhancing lesions are clearly identified. Dural venous sinuses are patent. T2/FLAIR weighted sequences again show mild scattered white matter foci in the deep white matter florina ons of both cerebral hemispheres. Midline structures demonstrate normal morphology. The craniocervical junction is normal. Mild mucosal thickening maxillary sinuses and ethmoid air cells. IMPRESSION: 1. The previously seen right paramedian posterior midline ring-enhancing lesion is no longer clearly identified. 2. However, an 8 mm enhancing lesion in the left cerebellum is larger compared to 5 mm, previously in retrospect. 3. A 4.5 mm enhancing lesion within the right occipitoparietal junction is also slightly larger versu s 3 mm, previously in retrospect..
== END | disposition home or self-care (01) ==
LOC: RADMRIMAIN 12:57
PROVIDERS: ATTEND Radiology Radiation Oncology
DX: C79.31 Secondary malignant neoplasm of brain (principal); C79.51 Secondary malignant neoplasm of bone; C77.9 Secondary and unspecified malignant neoplasm of lymph node, unspecified; Z92.3 Personal history of irradiation; Z87.891 Personal history of nicotine dependence; C34.12 Malignant neoplasm of upper lobe, left bronchus or lung
CPT/HCPCS: 70553; A9585

== ENCOUNTER 2020-05-24 16:08 | Inpatient (IN) | payer OTHER ==
[2020-05-24] MEDS ORDERED: HYDROmorphone 1 MG/ML 1 ML SYRINGE IVP STA ×2 (16:57→17:49)
--- NOTE | 2020-05-24 17:06 | ED ---
Back Pain HPI - General Chief Complaint: Back Pain/Injury Stated Complaint: Lower back pain, cancer pt Time Seen by Provider: 05/24/20 16:45 Source: patient, family, RN notes reviewed, old records reviewed Limitations: no limitations - History of Present Illness Initial Comments: This a 49-year-old male with a history of metastatic lung cancer to brain and to the back who presents today after a fall yesterday restates he got tangled up with his dog and fell on his buttock he complains severe low back pain increases with movement he does have a history of recent flu or cement being placed in the area within the past couple months. He denies a loss of function to the upper or lower extremities bowel or bladder incontinence. No other complaints of any other injury or pain pain is sharp in nature MD Complaint: back pain - Related Data Home Medications Medication Instructions Recorded Confirmed ALPRAZolam [Xanax] 0.25 mg PO TID PRN 02/21/20 02/21/20 Albuterol Sulfate [Albuterol 2 puff PO RT-QID PRN 02/21/20 02/21/20 Sulfate Hfa] Folic Acid 1 mg PO DAILY 02/21/20 02/21/20 Hydrocodone/Acetaminophen [[employer] 1 tab PO TID 02/21/20 02/21/20 10-325] Ibuprofen [Motrin] 800 mg PO Q8H PRN 02/21/20 02/21/20 Mometasone/Formoterol [Dulera 100 2 puff PO RT-BID 02/21/20 02/21/20 Mcg-5 Mcg Inhaler] Morphine Sulfate [Morphine Sulfate 30 mg PO BID 02/21/20 02/21/20 ER] Omeprazole 40 mg PO DAILY PRN 02/21/20 02/21/20 Sildenafil Citrate 50 mg PO DAILY PRN 02/21/20 02/21/20 Previous Rx's Medication Instructions Recorded HYDROcodone/APAP 5-325MG [[employer] 5] 1 each PO Q6HR PRN #28 tab 02/24/20 Sennosides-Docusate Sodium 1 each PO DAILY #30 tab 02/25/20 [Senokot-S] dexAMETHasone [Dexamethasone] 4 mg PO DAILY #7 tablet 02/25/20 Allergies Allergy/AdvReac Type Severity Reaction Status Date / Time No Known Allergies Allergy Verified 05/24/20 16:12 Review of Systems ROS Statement: Those systems with pertinent positive or pertinent negative responses have been documented in the HPI. ROS Other: All systems not noted in ROS Statement are negative. Past Medical History Past Medical History: Cancer, Pneumonia Additional Past Medical History / Comment(s): Hx bells palsy (July 2017), left lung cancer with lobectomy October 2018 ([facility]), states spot of cancer on brain-received radiation tx, pneumonia (07/2018), has cataract right eye, L spine CA History of Any Multi-Drug Resistant Organisms: None Reported Past Surgical History: No Surgical Hx Reported Additional Past Surgical History / Comment(s): oral surgery, vasectomy, left lung lobectomy (October 2018 @ [facility]) Past Anesthesia/Blood Transfusion Reactions: No Reported Reaction Past Psychological History: No Psychological Hx Reported Smoking Status: Former smoker Past Alcohol Use History: Rare Past Drug Use History: Marijuana - Past Family History Father Family Medical History: Renal Disease Additional Family Medical History / Comment(s): . General Exam - General Exam Comments Initial Comments: This a well-developed well-nourished awake alert oriented times 3 male Limitations: no limitations General appearance: anxious, in distress Head exam: Present: atraumatic, normocephalic, normal inspection Eye exam: Present: normal appearance, PERRL, EOMI. Absent: scleral icterus, conjunctival injection, periorbital swelling ENT exam: Present: normal exam, mucous membranes moist Neck exam: Present: normal inspection. Absent: tenderness, meningismus, lymphadenopathy Respiratory exam: Present: normal lung sounds bilaterally. Absent: respiratory distress, wheezes, rales, rhonchi, stridor Cardiovascular Exam: Present: regular rate, normal rhythm, normal heart sounds. Absent: systolic murmur, diastolic murmur, rubs, gallop, clicks GI/Abdominal exam: Present: soft, normal bowel sounds. Absent: distended, tenderness, guarding, rebound, rigid Extremities exam: Present: normal inspection, full ROM, normal capillary refill. Absent: tenderness, pedal edema, joint swelling, calf tenderness Back exam: Present: normal inspection, tenderness. Absent: full ROM (Is palpat ion of the lumbar spine no step-off or crepitation noted. No evidence of inflammation or erythema seen) Neurological exam: Present: alert, oriented X3, CN II-XII intact Psychiatric exam: Present: normal affect, normal mood Skin exam: Present: warm, dry, intact, normal color. Absent: rash Course Vital Signs 05/24/20 05/24/20 05/24/20 16:10 17:16 18:04 Temperature 97.7 F Pulse Rate 87 81 64 Respiratory 18 16 16 Rate Blood Pressure 94/61 113/82 124/82 O2 Sat by Pulse 97 99 98 Oximetry 05/24/20 18:42 Temperature Pulse Rate 58 L Respiratory 16 Rate Blood Pressure 114/69 O2 Sat by Pulse 98 Oximetry - Reevaluation(s) Reevaluation #1: 05/24/20 19:49 The patient did get some relief after the medication rendered however he still has a lot of pain. Medical Decision Making - Medical Decision Making I did discuss the findings with patient's mother was present. Patient be admitted for continued pain control for consultation by Dr. Willoughby and by Dr. Calhoun. - Lab Data Result diagrams: 05/24/20 17:12 05/24/20 17:12 Lab Results 05/24/20 05/24/20 Range/Units 17:12 17:12 WBC 8.8 (3.8-10.6) k/uL RBC 4.76 (4.30-5.90) m/uL Hgb 14.6 (13.0-17.5) gm/dL Hct 42.7 (39.0-53.0) % MCV 89.7 (80.0-100.0) fL MCH 30.6 (25.0-35.0) pg MCHC 34.2 (31.0-37.0) g/dL RDW 13.9 (11.5-15.5) % Plt Count 256 (150-450) k/uL MPV 8.0 Neutrophils % 71 % Lymphocytes % 16 % Monocytes % 6 % Eosinophils % 6 % Basophils % 1 % Neutrophils # 6.2 (1.3-7.7) k/uL Lymphocytes # 1.4 (1.0-4.8) k/uL Monocytes # 0.5 (0-1.0) k/uL Eosinophils # 0.5 (0-0.7) k/uL Basophils # 0.1 (0-0.2) k/uL Sodium 137 (137-145) mmol/L Potassium 4.7 (3.5-5.1) mmol/L Chloride 104 (98-107) mmol/L Carbon Dioxide 24 (22-30) mmol/L Anion Gap 9 mmol/L BUN 17 (9-20) mg/dL Creatinine 1.04 (0.66-1.25) mg/dL Est GFR (CKD-EPI)AfAm >90 (>60 ml/min/1.73 sqM) Est GFR (CKD-EPI)NonAf 84 (>60 ml/min/1.73 sqM) Glucose 137 H (74-99) mg/dL Calcium 9.3 (8.4-10.2) mg/dL Total Bilirubin 1.7 H (0.2-1.3) mg/dL AST 61 H (17-59) U/L ALT 110 H (4-49) U/L Alkaline Phosphatase 96 (38-126) U/L Creatine Kinase 89 (55-170) U/L Total Protein 7.5 (6.3-8.2) g/dL Albumin 4.5 (3.5-5.0) g/dL - Radiology Data Radiology results: report reviewed (I did review the imaging and report evidence of metastatic disease evidence of spinal stenosis see the complete report), image reviewed Disposition Clinical Impression: Intractable back pain, Metastatic primary lung cancer Disposition: ADMITTED IP TO THIS HOSP Condition: Fair Referrals: Deuce Tompkins MD [Primary Care Provider] - 1-2 days
[2020-05-24 17:24] LABS: Basophils # (A) 0.1 k/uL (0-0.2); Basophils % (A) 1 %; Eosinophils # (A) 0.5 k/uL (0-0.7); Eosinophils % (A) 6 %; HCT 42.7 % (39.0-53.0); HGB 14.6 gm/dL (13.0-17.5); Lymphocytes # (A) 1.4 k/uL (1.0-4.8); Lymphocytes % (A) 16 %; MCH 30.6 pg (25.0-35.0); MCHC 34.2 g/dL (31.0-37.0); MCV 89.7 fL (80.0-100.0); Monocytes # (A) 0.5 k/uL (0-1.0); Monocytes % (A) 6 %; Neutrophils # (A) 6.2 k/uL (1.3-7.7); Neutrophils % (A) 71 %; Platelet Count 256 k/uL (150-450); RBC 4.76 m/uL (4.30-5.90); RDW 13.9 % (11.5-15.5); WBC 8.8 k/uL (3.8-10.6)
[2020-05-24 17:41] LABS: ALT 110 U/L (4-49); AST 61 U/L (17-59); African American GFR (CKD) >90 (>60 ml/min/1.73 sqM); Albumin 4.5 g/dL (3.5-5.0); Alkaline Phosphatase 96 U/L (38-126); Anion Gap 9 mmol/L; Blood Urea Nitrogen 17 mg/dL (9-20); Calcium 9.3 mg/dL (8.4-10.2); Carbon Dioxide 24 mmol/L (22-30); Chloride 104 mmol/L (98-107); Creatine Kinase 89 U/L (55-170); Glucose 137 mg/dL (74-99); Non-African American GFR(CKD) 84 (>60 ml/min/1.73 sqM); Potassium 4.7 mmol/L (3.5-5.1); Sodium 137 mmol/L (137-145); Total Bilirubin 1.7 mg/dL (0.2-1.3); Total Protein 7.5 g/dL (6.3-8.2)
[2020-05-24] MEDS ORDERED: ORPHENADRINE 30 MG/ML 2 ML VIAL IVP STA (17:49)
--- NOTE | 2020-05-24 18:18 | CT ---
EXAMINATION TYPE: CT lumbar spine wo con DATE OF EXAM: 05/24/2020 COMPARISON: PET CT scan 02/18/2020 HISTORY: Lower back pain, CA CT DLP: 1443.6 mGycm Automated exposure control for dose reduction was used. Images were obtained from the level of T12-S3 vertebra with no contrast. Lumbar vertebra have normal alignment. There is vertebroplasty in bone cement at L4 vertebra. There i s 20% compression deformity of L4 vertebra. There is osteoblastic changes in the L5 L3 T12 and T11 an d T10 vertebra. There is no lumbar paraspinal mass. Posterior elements are intact. There is some soft tissue density along the posterior aspect of the L4 vertebral body encroaching on the spinal canal. There is a mild relative spinal stenosis. This could be epidural tumor. There is pr obably also posterior disc herniation at L4-5 elevating the posterior longitudinal ligament at the L5 level. IMPRESSION: Multiple blastic foci consistent with metastatic disease. There is probably epidural tumor involvemen t along the posterior longitudinal ligament at the L4 vertebral body. There is L4-5 disc herniation a nd also some spinal stenosis at L5 level.
[2020-05-24] MEDS ORDERED: NALOXONE 0.4 MG/ML 1 ML VIAL IV PRN (19:51)
[2020-05-24] MEDS ORDERED: ALBUTEROL NEBULIZED 2.5 MG/3 ML INHALATION PRN (19:55)
[2020-05-24] MEDS ORDERED: IBUPROFEN 800 MG TAB PO PRN (19:55)
[2020-05-24] MEDS: MORPHINE SULFATE ER 30 MG TABLET PO SCH (20:24)
[2020-05-24] MEDS: HYDROmorphone 1 MG/ML 1 ML SYRINGE IVP PRN (21:13)
[2020-05-24] MEDS: SODIUM CHLORIDE 0.9% 1,000 ML IV SCH (21:14)
[2020-05-24] MEDS: SYMBICORT 80-4.5 MCG INHALER INHALATION SCH (23:40)
[2020-05-25] MEDS: HYDROmorphone 1 MG/ML 1 ML SYRINGE IVP PRN ×3 (02:32→09:03)
[2020-05-25] MEDS: ALPRAZolam 0.25 MG TAB PO PRN (03:11)
[2020-05-25] MEDS: HYDROcodone/APAP 5-325MG 1 EACH TAB PO PRN ×2 (03:44→10:40)
[2020-05-25] MEDS: FOLIC ACID 1 MG TAB PO SCH (08:10)
[2020-05-25] MEDS: PANTOPRAZOLE 40 MG/10 ML VIAL IV SCH (08:10)
[2020-05-25] MEDS: MORPHINE SULFATE ER 30 MG TABLET PO SCH (08:10)
[2020-05-25] MEDS: SYMBICORT 80-4.5 MCG INHALER INHALATION SCH ×2 (08:39→20:03)
[2020-05-25] MEDS ORDERED: dexAMETHasone 4 MG TAB PO SCH (09:00)
--- NOTE | 2020-05-25 10:05 | P.CNOR ---
History of Present Illness - [facility] Consult date: 05/25/20 Consult reason: back pain History of present illness: Patient is known to our service and is seen and examined at bedside. He is a 49-year-old male with a history of metastatic lung cancer to his brain and spine. He says that he continues to have severe pain globally over his back particularly at his lower back. Approximately 3 once ago he underwent kyphoplasty of L4 for a pathologic compression fracture. He is unsure if that really gave him significant benefit. He says he has been essentially in bed for months. He hardly get out of bed. Yesterday he was at the bedside and got tangled up with his dog and spine and fell and has had severe increased pain in his lower back since then. He denies any changes in his lower extremities other than increased intensity. He has pain in his lower back and radiates over his buttocks and bilateral thighs. The pain has been similar for several months now but he feels it is somewhat more intense after the fall. He denies any weakness in his lower extremities. He feels overall deconditioned due to his lack of mobility and lack of movement. He denies any chest pain or shortness of breath. He says that he was scheduled for chemotherapy today but he canceled it Review of Systems Denies chest pain shortness breath. Denies any changes bowel bladder function. He denies any new weakness in his lower extremities but he feels the pain is more intense in his back and toward his size and normally is. He has had pain for many months in his back and lower legs Past Medical History Past Medical History: Cancer, Pneumonia Additional Past Medical History / Comment(s): Hx bells palsy (July 2017), left lung cancer with lobectomy October 2018 ([facility]), states spot of cancer on brain-received radiation tx, pneumonia (07/2018), has cataract right eye, L spine CA. L4 kyphoplasty in February 2020 History of Any Multi-Drug Resistant Organisms: None Reported Past Surgical History: No Surgical Hx Reported Additional Past Surgical History / Comment(s): oral surgery, vasectomy, left lung lobectomy (October 2018 @ [facility]) Past Anesthesia/Blood Transfusion Reactions: No Reported Reaction Past Psychological History: No Psychological Hx Reported Smoking Status: Never smoker Past Alcohol Use History: Rare Additional Past Alcohol Use History / Comment(s): quit smoking 1999., started smoking age 15, smoked 1ppd. Past Drug Use History: Marijuana Additional Drug Use History / Comment(s): Patient uses marijuana daily for pain - Past Family History Father Family Medical History: Renal Disease Additional Family Medical History / Comment(s): . Medications and Allergies Home Medications Medication Instructions Recorded Confirmed Type ALPRAZolam [Xanax] 0.5 mg PO TID PRN 02/21/20 05/24/20 History Albuterol Sulfate [Albuterol 2 puff INHALATION RT-QID PRN 02/21/20 05/24/20 History Sulfate Hfa] Folic Acid 1 mg PO DAILY 02/21/20 05/24/20 History Hydrocodone/Acetaminophen [[place] 1 tab PO Q4H PRN 02/21/20 05/24/20 History 10-325] Morphine Sulfate [Morphine Sulfate 30 mg PO BID 02/21/20 05/24/20 History ER] Omeprazole 40 mg PO DAILY 02/21/20 05/24/20 History Sildenafil Citrate 50 mg PO DAILY PRN 02/21/20 05/24/20 History Albuterol Nebulized [Ventolin 2.5 mg INHALATION RT-QID PRN 05/24/20 05/24/20 History Nebulized] Cholecalciferol [Vitamin D3 (25 25 mcg PO DAILY 05/24/20 05/24/20 History Mcg = 1000 Iu)] Multivitamins, Thera [Multivitamin 1 tab PO DAILY 05/24/20 05/24/20 History (formulary)] Ondansetron Odt [Zofran ODT] 8 mg PO Q6H PRN 05/24/20 05/24/20 History diphenhydrAMINE [Benadryl] 25 mg PO TID 05/24/20 05/24/20 History hydrOXYzine HCL [Atarax] 25 mg PO Q6H PRN 05/24/20 05/24/20 History Allergies Allergy/AdvReac Type Severity Reaction Status Date / Time No Known Allergies Allergy Verified 05/24/20 20:25 Physical Examination Osteopathic Statement: *. No significant issues noted on an osteopathic structural exam other than those noted in the History and Physical/Consult. - L Spine: dermatomal strength & reflexes bilateral Strength: hip flexion: 5/5 (He has some global deconditioning and difficulty movement he has trouble whenever he tries to roll in bed due to his pain is back and legs. He does have sustained dorsal flexion plantarflexion and EHL. Thighs and calves are soft nontender.) Results - Labs Labs: Abnormal Lab Results - Last 24 Hours (Table) 05/24/20 Range/Units 17:12 Glucose 137 H (74-99) mg/dL Total Bilirubin 1.7 H (0.2-1.3) mg/dL AST 61 H (17-59) U/L ALT 110 H (4-49) U/L H & H 05/24/20 Range/Units 17:12 Hgb 14.6 (13.0-17.5) gm/dL Hct 42.7 (39.0-53.0) % Result Diagrams: 05/24/20 17:12 05/24/20 17:12 - Diagnostic results CT Scan - lumbar: report reviewed (There is some wedging of T12 T11 and L1 which appears to be chronic. I do not see any obvious new fractures or bony retropulsion), image reviewed (Computed tomography scan of his lumbar spine shows evidence of prior kyphoplasty of L4 which appears stable. He is si gnificant disc degeneration L3 4 and L4 5. He has multiple bony abnormal foci throughout the lumbar spine which. The blastic metastatic lesions. There is some wedging at T11 T12 L) Assessment and Plan Assessment: Status post fall at home with new acute on chronic low back pain Metastatic lung CA with brain and spine metastases I do not see any new compression deformities or stenosis and lumbar spine Chronic pain Global deconditioning I do not see specific new source of the patient's pain. He had a fall and is exacerbated much of his chronic pain. He takes significant amounts of pain medication with his metastatic lung cancer and chronic pain issues and he should continue his medical management. I think it would be okay for him to try to mobilize with therapy for transfers and gentle mobility. We will order physical therapy for him. I offered him a brace. He says he has a brace at home and is not interested in trying a new brace at this point. He has some neurologic sensitivities symptoms in his lower extremities and has had Neurontin or gabapentin in the past and is declining those as well. Is very difficult to try to control the patient's pain and I think that is his primary course of treatment. I do not have plans for surgical intervention at this point. He is not having neuro new neurologic changes. He had acute exacerbation of his symptoms due to his fall and could have some benefit with a short course of steroid medication. His other cancer management I would defer that to medicine and oncology. Plan: Status post fall at home with new acute on chronic low back pain Metastatic lung CA with brain and spine metastases I do not see any new compression deformities or stenosis and lumbar spine Chronic pain Global deconditioning I do not see specific new source of the patient's pain. He had a fall and is exacerbated much of his chronic pain. He takes significant amounts of pain medication with his metastatic lung cancer and chronic pain issues and he should continue his medical management. I think it would be okay for him to try to mobilize with therapy for transfers and gentle mobility. We will order physical therapy for him. I offered him a brace. He says he has a brace at home and is not interested in trying a new brace at this point. He has some neurologic sensitivities symptoms in his lower extremities and has had Neurontin or gabapentin in the past and is declining those as well. Is very difficult to try to control the patient's pain and I think that is his primary course of treatment. I do not have plans for surgical intervention at this point. He is not having neuro new neurologic changes. He had acute exacerbation of his symptoms due to his fall and could have some benefit with a short course of steroid medication. His other cancer management I would defer that to medicine and oncology.
[2020-05-25] MEDS ORDERED: MAGNESIUM HYDROXIDE 2,400 MG/10 ML CUP PO PRN (11:52)
[2020-05-25] MEDS ORDERED: NALOXONE 0.4 MG/ML 1 ML VIAL IV PRN (11:52)
[2020-05-25] MEDS: dexAMETHasone 4 MG TAB PO SCH ×3 (12:36→21:15)
[2020-05-25] MEDS: MORPHINE PCA 50 MG/50 ML BAG IV PRN (13:06)
[2020-05-25] MEDS: ONDANSETRON 4 MG/2 ML VIAL IVP PRN (18:57)
--- NOTE | 2020-05-25 19:14 | P.CONS ---
History of Present Illness - Reason for Consult Consult date: 05/25/20 Intractable back pain, NSCLC Requesting physician: Sincere Crockett - Chief Complaint low back pain after fall - History of Present Illness Mr. Weathers is a pleasant male pt of Dr. Calhoun diagnosed with NSCLC adenocarcinoma in 2019. He presented to [facility] 07/21 with c/o progressive SOB, cough. He was seen outpatient and was told he had a left parahilar mass and was sched to have a PET scan, but got admitted for worsening shortness of breath and cough. He was diagnosed with influenza and started on Tamiflu. He was sent to [facility] where he underwent bronchoscopy and EBUS on 07/23/18, path positive for malignant cells, with the report indicating adenocarcinoma NOS. PET 07/25/18 showed uptake in the left hilar mass. He had an EBUS at [facility] on 08/17/18, with procedure incomplete due to sedation not being effective. He had a repeat on 08/19, with biopsies negative (though 2 samples were felt to be non-diagnostic). MRI brain showed a 2.5mm focus of enhancement in the left frontal, likely vascular, but small met not excluded. MRA done to assess further, felt that metastasis was definitely in the differential. Had SRS to solitary brain lesion, 09/24/18. Was taken to OR by Dr. Mobley 10/16/18, had left upper lobectomy revealing 7cm adenocarcinoma with mets to [address] LN (L5), all margins of resection negative. He was started on adjuvant carbo/ali mta/keytrudam, s/p 4 cycles then keyutruda alone. Did well until 10/22-c/o lower back pain radiating to L hip, MRI lytic lesion at L4. PET, lesion in L4 only. He had XRT to brain again as well-completed in November 2019. PET in Mar showed definite progression, treatment changed to opdivo. He was seen recently in office with low back c/o, weak legs and rectal pain, MRI was sched. Pt admitted after a fall at home. Low back pain is now worse. Decreased sensation in the lower extremities and rectal pain persists, not progressive. He feels "buzzing" in his head-he had single treatment of radiation to the brain yesterday. Denies any other neuro symptoms, seizure like activity, he is weak, has difficulty moving independently, he ate breakfast, no nausea, vomiting, chest pain, abd pain, acute changed in bowel or bladder, swelling, rash or bleeding. Review of Systems 14 point ROS is negative except as stated in HPI Past Medical History Past Medical History: Cancer, Pneumonia Additional Past Medical History / Comment(s): Hx bells palsy (July 2017), left lung cancer with lobectomy October 2018 ([facility]), states spot of cancer on brain-received radiation tx, pneumonia (07/2018), has cataract right eye, L spine CA. L4 kyphoplasty in February 2020 History of Any Multi-Drug Resistant Organisms: None Reported Past Surgical History: No Surgical Hx Reported Additional Past Surgical History / Comment(s): oral surgery, vasectomy, left lung lobectomy (October 2018 @ [facility]) Past Anesthesia/Blood Transfusion Reactions: No Reported Reaction Past Psychological History: No Psychological Hx Reported Smoking Status: Never smoker Past Alcohol Use History: Rare Additional Past Alcohol Use History / Comment(s): quit smoking 2000., started smoking age 15, smoked 1ppd. Past Drug Use History: Marijuana Additional Drug Use History / Comment(s): Patient uses marijuana daily for pain - Past Family History Father Family Medical History: Renal Disease Additional Family Medical History / Comment(s): . Medications and Allergies Home Medications Medication Instructions Recorded Confirmed Type ALPRAZolam [Xanax] 0.5 mg PO TID PRN 02/21/20 05/24/20 History Albuterol Sulfate [Albuterol 2 puff INHALATION RT-QID PRN 02/21/20 05/24/20 History Sulfate Hfa] Folic Acid 1 mg PO DAILY 02/21/20 05/24/20 History Hydrocodone/Acetaminophen [[place] 1 tab PO Q4H PRN 02/21/20 05/24/20 History 10-325] Morphine Sulfate [Morphine Sulfate 30 mg PO BID 02/21/20 05/24/20 History ER] Omeprazole 40 mg PO DAILY 02/21/20 05/24/20 History Sildenafil Citrate 50 mg PO DAILY PRN 02/21/20 05/24/20 History Albuterol Nebulized [Ventolin 2.5 mg INHALATION RT-QID PRN 05/24/20 05/24/20 History Nebulized] Cholecalciferol [Vitamin D3 (25 25 mcg PO DAILY 05/24/20 05/24/20 History Mcg = 1000 Iu)] Multivitamins, Thera [Multivitamin 1 tab PO DAILY 05/24/20 05/24/20 History (formulary)] Ondansetron Odt [Zofran ODT] 8 mg PO Q6H PRN 05/24/20 05/24/20 History diphenhydrAMINE [Benadryl] 25 mg PO TID 05/24/20 05/24/20 History hydrOXYzine HCL [Atarax] 25 mg PO Q6H PRN 05/24/20 05/24/20 History Allergies Allergy/AdvReac Type Severity Reaction Status Date / Time No Known Allergies Allergy Verified 05/24/20 20:25 Physical Exam Vitals: Vital Signs Temp Pulse Pulse Resp BP BP Pulse Ox 05/25/20 13:00 97.6 F 63 17 147/86 98 05/25/20 05:00 98.4 F 79 18 148/90 98 05/24/20 21:21 97.6 F 59 L 18 144/87 98 05/24/20 21:10 18 05/24/20 20:00 98.2 F 59 L 16 127/87 98 05/24/20 18:42 58 L 16 114/69 98 05/24/20 18:04 64 16 124/82 98 05/24/20 17:16 81 16 113/82 99 05/24/20 16:10 97.7 F 87 18 94/61 97 Intake and Output 05/24/20 05/25/20 05/25/20 22:59 06:59 14:59 Intake Total 740 Balance 740 Intake: Intake, IV Titration 240 Amount Sodium Chloride 0.9% 1, 240 000 ml @ 20 mls/hr IV . Q24H [facility] Rx#:[id number] Oral 500 Other: Voiding Method Urinal Urinal # Voids 1 Weight 99.79 kg - Constitutional General appearance: cooperative, obese, severe distress - EENT Eyes: anicteric sclerae, EOMI, normal appearance ENT: hearing grossly normal, normal oropharynx - Neck Neck: no lymphadenopathy - Respiratory Respiratory: bilateral: diminished - Cardiovascular Rhythm: regular Heart sounds: normal: S1, S2 Abnormal Heart Sounds: no systolic murmur, no diastolic murmur, no rub, no S3 Gallop, no S4 Gallop, no click, no other leg Peripheral Edema: bilateral: Trace - Gastrointestinal General gastrointestinal: no absent bowel sounds, no decreased bowel sounds, no distended, no hepatomegaly, no hyperactive bowel sounds, normal bowel sounds, no organomegaly, no rigid, no scaphoid, soft, no splenomegaly, no tenderness, no umbilical hernia, no ventral hernia - Integumentary Integumentary: normal - Neurologic Neurologic: CNII-XII intact - Musculoskeletal Pain with palpation of the lower T-spine and L-spine into coccyx. No visible or palpable deformity Musculoskeletal: generalized weakness - Psychiatric Psychiatric: A&O x's 3, appropriate affect, intact judgment & insight Results CBC & Chem 7: 05/24/20 17:12 05/24/20 17:12 Labs: Abnormal Lab Results - Last 24 Hours (Table) 05/24/20 Range/Units 17:12 Glucose 137 H (74-99) mg/dL Total Bilirubin 1.7 H (0.2-1.3) mg/dL AST 61 H (17-59) U/L ALT 110 H (4-49) U/L Comments: Lumbar spine CT without contrast report reviewed Assessment and Plan (1) Intractable back pain Narrative/Plan: Pt fell, so this is exacerbation of his pain. He states that nothing is really helping at this time. Discussed with him a SHIFT BOSS of morphine. 24 hour dose will be converted to long acting oral ATC and short acting PRN Dex added for pain from swelling. PPI therapy Ibuprofen ordered Scheduled and PRN meds for prevention of narcotic induced constipation Reassess pain in AM Current Visit: Yes Status: Acute Priority: High Code(s): M54.9 - DORSALGIA, UNSPECIFIED SNOMED Code(s): 408244859 (2) NSCLC metastatic to bone Narrative/Plan: Pt is on immunotherapy with nivolumab. Has been doing overall well cancer pratt. Current Visit: Yes Status: Chronic Priority: High Code(s): C34.90 - MALIGNANT NEOPLASM OF UNSP PART OF UNSP BRONCHUS OR LUNG; C79.51 - SECONDARY MALIGNANT NEOPLASM OF BONE SNOMED Code(s): 202323560 (3) Pathologic lumbar vertebral fracture Narrative/Plan: Pt has had kyphoplasty. Dr. Willoughby has seen pt, unfortunately no further procedures are recommended. Will consult Rad Onc and see if there is any place for further radiation-pt has had previously Current Visit: No Status: Chronic Priority: Medium Code(s): M84.48XA - PATHOLOGICAL FRACTURE, OTHER SITE, INIT ENCNTR FOR FRACTURE SNOMED Code(s): 436564348 (4) Spinal compression fracture with history of cancer Current Visit: No Status: Chronic Priority: Medium Code(s): LIO5804 - SNOMED Code(s): 81878181 Plan: Pt has a history of not following instructions for medications or taking recommendations/suggestions of multiple providers. This which makes providing care to him a challenge. He will not try suggestions but, continue to complain and say that no one is listening. Have ordered meds to address multiple pathways of pain-many I suspect pt will refuse but, have ordered to try anyway.
[2020-05-25] MEDS: SODIUM CHLORIDE 0.9% 1,000 ML IV SCH (21:14)
[2020-05-25] MEDS: SENNOSIDES-DOCUSATE SODIUM 1 EACH TAB PO SCH (21:15)
--- NOTE | 2020-05-25 23:18 | P.HPIM ---
History of Present Illness H&P Date: 05/25/20 Chief Complaint: Intractable back pain Patient is a 49-year-old male with a known history of left lung cancer with lobectomy in October 2018, 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 Patient is using marijuana on daily basis for pain. Patient had a fall yesterday. He got tangled up with his dog and fell on his buttock. Since then he has been having severe low back pain increases with movement. Denies any dizziness or lightheadedness. No head injury. Denies any limb weakness. No bowel or bladder incontinence. No fever no chills. No chest pain or shortness of breath. CT of the lumbar spine showed multiple blastic foci consistent with metastatic disease. There is probably epidural tumor involvement along the posterior longitudinal ligament at the L4 vertebral body. There is L4-L5 disc herniation and some spinal stenosis at L5 level Review of Systems Constitutional: Patient denies any fever or chills . No generalized weakness or weight loss. Abdomen: Patient denied nausea vomiting and diarrhea and abdominal pain. Cardiovascular: Patient denies any chest pain or short of breath no palpitations. Respiratory: patient denied any cough or sputum production. No shortness of breath Neurologic: Patient denied any numbness or tingling headache. Musculoskeletal: Patient denies any complaints of joint swelling or deformity.Intractable back pain Skin: Negative Psychiatric: Negative Endocrine: No heat or cold intolerance. No recent weight gain. Genitourinary: No dysuria or hematuria. All other 14 point ROS negative except the above Past Medical History Past Medical History: Cancer, Pneumonia Additional Past Medical History / Comment(s): Hx bells palsy (July 2017), left lung cancer with lobectomy October 2018 ([facility]), states spot of cancer on brain-received radiation tx, pneumonia (07/2018), has cataract right eye, L spine CA. L4 kyphoplasty in February 2020 History of Any Multi-Drug Resistant Organisms: None Reported Past Surgical History: No Surgical Hx Reported Additional Past Surgical History / Comment(s): oral surgery, vasectomy, left lung lobectomy (October 2018 @ [facility]) Past Anesthesia/Blood Transfusion Reactions: No Reported Reaction Past Psychological History: No Psychological Hx Reported Smoking Status: Never smoker Past Alcohol Use History: Rare Additional Past Alcohol Use History / Comment(s): quit smoking 1999., started smoking age 15, smoked 1ppd. Past Drug Use History: Marijuana Additional Drug Use History / Comment(s): Patient uses marijuana daily for pain - Past Family History Father Family Medical History: Renal Disease Additional Family Medical History / Comment(s): . Medications and Allergies Home Medications Medication Instructions Recorded Confirmed Type ALPRAZolam [Xanax] 0.5 mg PO TID PRN 02/21/20 05/24/20 History Albuterol Sulfate [Albuterol 2 puff INHALATION RT-QID PRN 02/21/20 05/24/20 H istory Sulfate Hfa] Folic Acid 1 mg PO DAILY 02/21/20 05/24/20 History Hydrocodone/Acetaminophen [[place] 1 tab PO Q4H PRN 02/21/20 05/24/20 History 10-325] Morphine Sulfate [Morphine Sulfate 30 mg PO BID 02/21/20 05/24/20 History ER] Omeprazole 40 mg PO DAILY 02/21/20 05/24/20 History Sildenafil Citrate 50 mg PO DAILY PRN 02/21/20 05/24/20 History Albuterol Nebulized [Ventolin 2.5 mg INHALATION RT-QID PRN 05/24/20 05/24/20 History Nebulized] Cholecalciferol [Vitamin D3 (25 25 mcg PO DAILY 05/24/20 05/24/20 History Mcg = 1000 Iu)] Multivitamins, Thera [Multivitamin 1 tab PO DAILY 05/24/20 05/24/20 History (formulary)] Ondansetron Odt [Zofran ODT] 8 mg PO Q6H PRN 05/24/20 05/24/20 History diphenhydrAMINE [Benadryl] 25 mg PO TID 05/24/20 05/24/20 History hydrOXYzine HCL [Atarax] 25 mg PO Q6H PRN 05/24/20 05/24/20 History Allergies Allergy/AdvReac Type Severity Reaction Status Date / Time No Known Allergies Allergy Verified 05/24/20 20:25 Physical Exam Vitals: Vital Signs Temp Pulse Pulse Resp BP BP Pulse Ox 05/25/20 15:10 73 115/65 98 05/25/20 13:00 97.6 F 63 17 147/86 98 05/25/20 05:00 98.4 F 79 18 148/90 98 05/24/20 21:21 97.6 F 59 L 18 144/87 98 05/24/20 21:10 18 05/24/20 20:00 98.2 F 59 L 16 127/87 98 05/24/20 18:42 58 L 16 114/69 98 05/24/20 18:04 64 16 124/82 98 05/24/20 17:16 81 16 113/82 99 05/24/20 16:10 97.7 F 87 18 94/61 97 Intake and Output 05/25/20 05/25/20 05/25/20 06:59 14:59 22:59 Intake Total 740 Balance 740 Intake: Intake, IV Titration 240 Amount Sodium Chloride 0.9% 1, 240 000 ml @ 20 mls/hr IV . Q24H [facility] Rx#:[id number] Oral 500 Other: Voiding Method Urinal # Voids 1 PHYSICAL EXAMINATION: Patient is lying in the bed comfortably, no acute distress, awake alert and oriented.. HEENT: Normocephalic. Neck is supple. Pupils reactive. Nostrils clear. Oral cavity is moist. Ears reveal no drainage. Neck reveals no JVD, carotid bruits, or thyromegaly. CHEST EXAMINATION: Trachea is central. Symmetrical expansion. Lung pisano clear to auscultation and percussion. CARDIAC: Normal S1, S2 with no gallops. No murmurs ABDOMEN: Soft. Bowel sounds normal. No organomegaly. No abdominal bruits. Extremities: reveal no edema. No clubbing or cyanosis Neurologically awake, alert, oriented x3 with well-coordinated movements. No focal deficits noted Skin: No rash or skin lesions. Psychiatric: Coperative. Nonsuicidal Musculoskeletal: No joint swelling or deformity. Normal range of motion. Results CBC & Chem 7: 05/24/20 17:12 05/24/20 17:12 Labs: Abnormal Lab Results - Last 24 Hours (Table) 05/24/20 Range/Units 17:12 Glucose 137 H (74-99) mg/dL Total Bilirubin 1.7 H (0.2-1.3) mg/dL AST 61 H (17-59) U/L ALT 110 H (4-49) U/L Thrombosis Risk Factor Assmnt - DVT/VTE Prophylaxis DVT/VTE Prophylaxis: Pharmacologic Prophylaxis ordered - Choose All That Apply Any of the Below Risk Factors Present?: Yes Each Factor Represents 1 point: Age 41-60 years, Medical pt on bed rest Other Risk Factors: Yes Each Risk Factor Represents 2 Points: Malignancy Other congenital or acquired thrombophilia - If yes, enter type in comment: No Thrombosis Risk Factor Assessment Total Risk Factor Score: 4 Thrombosis Risk Factor Assessment Level: Moderate Risk Assessment and Plan Assessment: Intractable back pain due to metastatic lesions Metastatic lung cancer History of brain mets and status post radiation. Marijuana use on daily basis DVT prophylaxis. Patient will be continued on morphine [facility] pump. Continue with stool softeners for opiate-induced constipation. Patient refuses to take DVT prophylaxis. Patient was also started on dexamethasone 4 mg 3 times daily. Oncology and orthopedic surgery is on board. Will follow closely. Time with Patient: Greater than 30
[2020-05-26] MEDS: ALPRAZolam 0.25 MG TAB PO PRN ×3 (00:24→20:21)
[2020-05-26] MEDS: ONDANSETRON 4 MG/2 ML VIAL IVP PRN (05:42)
[2020-05-26] MEDS: IBUPROFEN 400 MG TAB PO PRN (05:43)
[2020-05-26] MEDS: SYMBICORT 80-4.5 MCG INHALER INHALATION SCH ×2 (07:24→20:00)
--- NOTE | 2020-05-26 07:54 | MR ---
EXAMINATION TYPE: MR carmen/lsjaymie wo con DATE OF EXAM: 05/26/2020 COMPARISON: CT lumbar spine 2 days ago. MRI thoracic spine February 22, 2020. PET CT February 18, 2020 HISTORY: Decreased sensation in lower extremities, history of lung cancer metastatic to bone. TECHNIQUE: Multiplanar, multisequence imaging of the thoracic and lumbar spine are performed without IV contrast. FINDINGS: Thoracic spine: FINDINGS: Spinal cord redemonstrates normal caliber and signal in the thoracic spine. There is redemo nstration of levoconvex scoliotic curvature centered in the mid thoracic spine. There is persistent d iminished low T1 signal involving the posterior right aspect of the T10 vertebra and more diffusely i nvolving the T11 vertebra where there is mild height loss corresponding to the slight mass effect met astatic disease. There is increased involvement involving the right posterior T12 vertebra. No signif icant posterior retropulsion. There is mild to moderate posterior disc space narrowing with posterior disc herniation effacing anterior thecal sac at T6/C7 and T7-T8 levels. Review of the axial images shows no additional significant spinal canal stenosis or neural foraminal narrowing at any thoracic level. IMPRESSION: Ossific metastatic disease to the lower thoracic spine redemonstrated. Mild height loss T 11 vertebra again seen. No significant change from prior MRI and/or PET/CT. Lumbar spine: Exam is suboptimal as patient unable to complete the entire lumbar spine sequence. Sagittal images of the lumbar spine show persistent slight dextroconvex scoliotic curvature centered at L2 level. There is mild height loss with vertebral plasty at L4 level redemonstrated. There is les ion of low T2 signal corresponding to sclerotic metastatic lesion involving the anterior L5 vertebra. Alignment satisfactory on sagittal images The conus medullaris is normal in position and signal endi ng mid L1 level. Mild to moderate multilevel anterior spurring. Axial images at L2-L3 level shows left paracentral disc protrusion and annular tear mildly effacing t he anterolateral thecal sac axial image 22. Axial images at the L4-L5 level to moderate broad disc bulge and mild facet arthropathy. There is mil d bilateral anterior inferior neural foraminal narrowing. Axial images at the L5-S1 levels mild facet degenerative changes bilaterally. There is tiny central d isc protrusion. Spinal canal is preserved. Patent bilateral neural foramina. Enlarging suspicious left para-aortic lymph node measuring 2.1 x 1.4 cm axial image 21 noted just bel ow level of renal vessels IMPRESSION: Metastatic lesion in L5 vertebra. Mild height loss L4 vertebra with vertebroplasty. Align ment stable. No new posterior retropulsion. Suboptimal study. New suspicious left para-aortic adenopa thy.
[2020-05-26] MEDS: MORPHINE PCA 50 MG/50 ML BAG IV PRN ×2 (07:58→12:53)
[2020-05-26] MEDS: FOLIC ACID 1 MG TAB PO SCH (08:28)
[2020-05-26] MEDS: dexAMETHasone 4 MG TAB PO SCH ×3 (08:30→21:43)
[2020-05-26] MEDS: PANTOPRAZOLE 40 MG/10 ML VIAL IV SCH (08:59)
[2020-05-26] MEDS ORDERED: HYDROmorphone 1 MG/ML 1 ML SYRINGE IVP STA (13:16)
--- NOTE | 2020-05-26 13:39 | P.PN ---
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 He was taking 30mg MS COntin 2-3 x a day and [place] 1-2 tabs 3-4x a day at home and that was not controlling pain, therefore we will adjust for a more comfortable situ ation as he is a palliative intent. Stop [employer] ELECTRICAL TECHNICIAN. Discussed goal with patient is to find a regimen that works at home. Fentanyl conversion for Morphine 120mg daily is 75mcg. Then will add Percocet 10/325 for breakthrough. He has been instructed and agrees that the plan will be to utilize percocet prior to IV dilaudid. Once pain management on Transdermal and PO regimen will approve discharge. Anticipate Friday. Objective - Vital Signs Vital signs: Vital Signs Temp 98.3 F 05/26/20 11:50 Pulse 114 H 05/26/20 11:50 Resp 16 05/26/20 11:50 BP 142/90 05/26/20 11:50 Pulse Ox 95 05/26/20 11:50 Intake & Output 05/25/20 05/26/20 05/26/20 18:59 06:59 18:59 Intake Total 1240 Output Total 1400 Balance -160 Intake: Intake, IV Titration 240 Amount Sodium Chloride 0.9% 1, 240 000 ml @ 20 mls/hr IV . Q24H [facility] Rx#:[id number] Oral 1000 Output: Urine 1400 Other: Voiding Method Urinal Urinal Toilet Urinal # Voids 1 - Exam - Constitutional General appearance: cooperative, obese, severe distress - EENT Eyes: anicteric sclerae, EOMI, normal appearance ENT: hearing grossly normal, normal oropharynx - Neck Neck: no lymphadenopathy - Respiratory Respiratory: bilateral: diminished - Cardiovascular Rhythm: regular Heart sounds: normal: S1, S2 Abnormal Heart Sounds: no systolic murmur, no diastolic murmur, no rub, no S3 Gallop, no S4 Gallop, no click, no other leg Peripheral Edema: bilateral: Trace - Gastrointestinal General gastrointestinal: no absent bowel sounds, no decreased bowel sounds, no distended, no hepatomegaly, no hyperactive bowel sounds, normal bowel sounds, no organomegaly, no rigid, no scaphoid, soft, no splenomegaly, no tenderness, no umbilical hernia, no ventral hernia - Integumentary Integumentary: normal - Neurologic Neurologic: CNII-XII intact - Musculoskeletal Pain with palpation of the lower T-spine and L-spine into coccyx. No visible or palpable deformity Musculoskeletal: generalized weakness - Psychiatric Psychiatric: A&O x's 3, appropriate affect, intact judgment & insight - Labs CBC & Chem 7: 05/26/20 14:36 05/24/20 17:12 Assessment and Plan Plan: Comments: Lumbar spine CT without contrast report reviewed Assessment and Plan Intractable back pain - Not relieved on home regimen of 60-90 MS Contin and Pt fell, so this is exacerbation of his pain. 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 - Therefore we will add Fentanyl patch, as he is palliative intent and a long acting is needed as this is chronic pain from metastatic cancer. He understands the pain management goal is control of pain on fentanyl and PO breakthrough. 24 hours for Fentanyl effects to fully be able to assess response. - Bowel regimen to continue Current Visit: Yes Status: Acute Priority: High Code(s): M54.9 - DORSALGIA, UNSPECIFIED SNOMED Code(s): 351872128 NSCLC metastatic to bone - Palliative Intent - Pt is on immunotherapy with nivolumab. - Has been doing overall well cancer pratt. Current Visit: Yes Status: Chronic Priority: High Code(s): C34.90 - MA LIGNANT NEOPLASM OF UNSP PART OF UNSP BRONCHUS OR LUNG; C79.51 - SECONDARY MALIGNANT NEOPLASM OF BONE SNOMED Code(s): 621042493 Pathologic lumbar vertebral fracture - Pt has had kyphoplasty. - Dr. Willoughby has seen pt, unfortunately no further procedures are recommended. - Rad Onc following and for options of further palliative radiation-pt has had previously Current Visit: No Status: Chronic Priority: Medium Code(s): M84.48XA - PATHOLOGICAL FRACTURE, OTHER SITE, INIT ENCNTR FOR FRACTURE SNOMED Code(s): 610128757 Spinal compression fracture with history of cancer Current Visit: No Status: Chronic Priority: Medium Code(s): JTT1772 - SNOMED Code(s): 33126641 DISPO Plan: 24-36 hours if pain controlled on Fentanyl and Percocet. he will need medications filled prior to discharge in our pharmacy to ensure coverage and no lapse in continuation.
[2020-05-26 15:05] LABS: Basophils # (A) 0.1 k/uL (0-0.2); Basophils % (A) 0 %; Eosinophils % (A) 0 %; HCT 46.6 % (39.0-53.0); Lymphocytes # (A) 1.2 k/uL (1.0-4.8); Lymphocytes % (A) 6 %; MCH 30.9 pg (25.0-35.0); MCHC 34.4 g/dL (31.0-37.0); MCV 89.7 fL (80.0-100.0); Mean Platelet Volume 8.5; Monocytes # (A) 1.1 k/uL (0-1.0); Monocytes % (A) 6 %; Neutrophils # (A) 15.7 k/uL (1.3-7.7); Neutrophils % (A) 86 %; Platelet Count 332 k/uL (150-450); RBC 5.19 m/uL (4.30-5.90); RDW 13.7 % (11.5-15.5); WBC 18.2 k/uL (3.8-10.6)
[2020-05-26] MEDS: HYDROmorphone 1 MG/ML 1 ML SYRINGE IVP PRN ×2 (17:27→21:44)
[2020-05-26] MEDS: SENNOSIDES-DOCUSATE SODIUM 1 EACH TAB PO SCH (20:21)
[2020-05-26 21:20] VITALS: RESP 18
[2020-05-27] MEDS: SODIUM CHLORIDE 0.9% 1,000 ML IV SCH (00:53)
[2020-05-27 02:24] LABS: African American GFR (CKD) 81.2 (60.0-200.0); Albumin 5.4 g/dL (3.80-4.90); Albumin/Globulin Ratio 2.35 (1.60-3.17); Anion Gap 16.4 mmol/L (4.00-12.00); BUN/Creat Ratio 17.5 Ratio (12.00-20.00); Calcium 10.1 mg/dL (8.7-10.3); Carbon Dioxide 18.6 mmol/L (21.6-31.8); Globulin 2.3 g/dL (1.6-3.3); Non-African American GFR(CKD) 70.1 (60.0-200.0); Potassium 4.7 mmol/L (3.5-5.5); Total Bilirubin 1.7 mg/dL (0.2-1.2); Total Protein 7.7 g/dL (6.2-8.2)
[2020-05-27] MEDS: oxyCODONE-APAP 10-325MG 1 EACH TAB PO PRN ×3 (04:50→14:49)
[2020-05-27] MEDS: ALPRAZolam 0.25 MG TAB PO PRN (06:06)
[2020-05-27] MEDS: IBUPROFEN 400 MG TAB PO PRN ×2 (06:18→14:49)
[2020-05-27] MEDS: SYMBICORT 80-4.5 MCG INHALER INHALATION SCH (08:41)
[2020-05-27] MEDS ORDERED: polyethylene glycoL 3350 17 GM POWD.PACK PO SCH (09:00)
[2020-05-27] MEDS: PANTOPRAZOLE 40 MG/10 ML VIAL IV SCH (09:29)
[2020-05-27] MEDS: FOLIC ACID 1 MG TAB PO SCH (09:30)
[2020-05-27] MEDS: dexAMETHasone 4 MG TAB PO SCH (09:30)
[2020-05-27 11:50] VITALS: BP 144/88; PULSE 113; TEMP 98.8
--- NOTE | 2020-05-27 14:25 | P.PN ---
Subjective Progress Note Date: 05/27/20 Principal diagnosis: 1. Intractable pain due to cancer and bone met's 2. Pathologic vertebral fracture due to malignancy 3. Bone met's. 4. NSCLC Pain much improved and patient very eager to go home. Objective - Vital Signs Vital signs: Vital Signs Temp 98.8 F 05/27/20 11:34 Pulse 113 H 05/27/20 11:34 Resp 18 05/27/20 11:34 BP 144/88 05/27/20 11:34 Pulse Ox 97 05/27/20 11:34 Intake & Output 05/26/20 05/27/20 05/27/20 18:59 06:59 18:59 Intake Total 500 Output Total 1000 570 Balance -500 -570 Intake: Oral 500 Output: Drainage 70 Left 70 Urine 1000 500 Other: Voiding Method Toilet Toilet Toilet Urinal Urinal Urinal # Voids 1 1 - Exam Gen.: In no acute distress. HEENT: Mucosa moist Neck: Supple. Lungs: No respiratory distress. Heart: Regular rate and rhythm. Abdomen: Soft. MSK: Appropriate strength in all 4 extremities. Neuro: Alert and oriented 3. Skin: No jaundice. Psych: Appropriate affect. Slightly anxious. - Labs CBC & Chem 7: 05/26/20 14:36 05/26/20 14:36 Labs: Abnormal Lab Results - Last 24 Hours (Table) 05/26/20 05/26/20 Range/Units 14:36 14:36 WBC 18.2 H (3.8-10.6) k/uL Neutrophils # 15.7 H (1.3-7.7) k/uL Monocytes # 1.1 H (0-1.0) k/uL Carbon Dioxide 18.6 L (21.6-31.8) mmol/L Anion Gap 16.40 H (4.00-12.00) mmol/L Glucose 177 H (70-110) mg/dL Total Bilirubin 1.7 H (0.2-1.2) mg/dL ALT 91 H (10-49) U/L Alkaline Phosphatase 139 H (41-126) U/L Albumin 5.40 H (3.80-4.90) g/dL Assessment and Plan Assessment: 1. Metastatic NSCLC 2. Bone met's 3. Pathologic vertebral fracture 4. Intractable pain Plan: Mr. Weathers is a 49-year-old gentleman with a history of metastatic non-small cell lung cancer who is here for intractable pain. He was found to have new pathologic vertebral fracture. Currently doing much better on fentanyl, Percocet, and Decadron. No objections to discharge on Decadron 4 mg every 12 hours, fentanyl 75 MCG every 3 days, Percocet 15/325 every 4 hours as needed. Prescription for three-day course of narcotics was provided as well as 1 week of Decadron. Patient will need to follow-up to continue cancer directed therapy. Discussed with patient in detail and is agreeable to the plan. All of his questions were answered. Discussed with nursing staff.
--- NOTE | 2020-05-27 16:52 | P.PN ---
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 Patient is using marijuana on daily basis for pain. Patient had a fall yesterday. He got tangled up with his dog and fell on his buttock. Since then he has been having severe low back pain increases with movement. Denies any dizziness or lightheadedness. No head injury. Denies any limb weakness. No bowel or bladder incontinence. No fever no chills. No chest pain or shortness of breath. CT of the lumbar spine showed multiple blastic foci consistent with metastatic disease. There is probably epidural tumor involvement along the posterior longitudinal ligament at the L4 vertebral body. There is L4-L5 disc herniation and some spinal stenosis at L5 level Objective - Vital Signs Vital signs: Vital Signs Temp 98.3 F 05/26/20 11:50 Pulse 114 H 05/26/20 11:50 Resp 16 05/26/20 11:50 BP 142/90 05/26/20 11:50 Pulse Ox 95 05/26/20 11:50 Intake & Output 05/25/20 05/26/20 05/26/20 18:59 06:59 18:59 Intake Total 1240 Output Total 1400 Balance -160 Intake: Intake, IV Titration 240 Amount Sodium Chloride 0.9% 1, 240 000 ml @ 20 mls/hr IV . Q24H [facility] Rx#:[id number] Oral 1000 Output: Urine 1400 Other: Voiding Method Urinal Urinal Toilet Urinal # Voids 1 - Exam Patient is lying in the bed comfortably, no acute distress, awake alert and oriented.. HEENT: Normocephalic. Neck is supple. Pupils reactive. Nostrils clear. Oral cavity is moist. Ears reveal no drainage. Neck reveals no JVD, carotid bruits, or thyromegaly. CHEST EXAMINATION: Trachea is central. Symmetrical expansion. Lung pisano clear to auscultation and percussion. CARDIAC: Normal S1, S2 with no gallops. No murmurs ABDOMEN: Soft. Bowel sounds normal. No organomegaly. No abdominal bruits. Extremities: reveal no edema. No clubbing or cyanosis Neurologically awake, alert, oriented x3 with well-coordinated movements. No fo michelle deficits noted Skin: No rash or skin lesions. Psychiatric: Coperative. Nonsuicidal Musculoskeletal: No joint swelling or deformity. Normal range of motion. - Labs CBC & Chem 7: 05/24/20 17:12 05/24/20 17:12 Assessment and Plan Assessment: Intractable back pain due to metastatic lesions Metastatic lung cancer History of brain mets and status post radiation. 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 Continue with stool softeners for opiate-induced constipation. Patient refuses to take DVT prophylaxis. Patient was also started on dexamethasone 4 mg 3 times daily. Oncology and orthopedic surgery is on board. Will follow closely.
--- NOTE | 2020-05-27 16:53 | P.DS ---
Providers Date of admission: 05/24/20 19:57 Expected date of discharge: 05/27/20 Attending physician: Ervin Mosqueda Consults: 05/24/20 19:53 Consult Physician Routine Consulting Provider: Reba Willoughby Consult Reason/Comments: Back pain Do you want consulting provider notified?: Yes 05/24/20 19:54 Consult Physician Routine Consulting Provider: Robert Calhoun Consult Reason/Comments: Intractable back pain, metastatic lung cancer Do you want consulting provider notified?: Yes 05/26/20 15:26 Consult Physician Routine Consulting Provider: Andres Meza Consult Reason/Comments: Poss new lesion L5, pain Do you want consulting provider notified?: Yes Primary care physician: [facility] Course: 49-year-old male with a known history of left lung cancer with lobectomy in October 2018, 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 Patient is using marijuana on daily basis for pain. Patient had a fall yesterday. He got tangled up with his dog and fell on his buttock. Since then he has been having severe low back pain increases with movement. Denies any dizziness or lightheadedness. No head injury. Denies any limb weakness. No bowel or bladder incontinence. No fever no chills. No chest pain or shortness of breath. CT of the lumbar spine showed multiple blastic foci consistent with metastatic disease. There is probably epidural tumor involvement along the posterior longitudinal ligament at the L4 vertebral body. There is L4-L5 disc herniation and some spinal stenosis at L5 level Patient's pain was initially controlled with IV pain medications which was then followed by Duragesic patch and scheduled oxycodone which did improve symptoms; patient was also put on dexamethasone and symptoms resolved; hematology/oncology recommended patient discharged on Duragesic patch, Percocet and dexamethasone 4 mg and follow-up with oncology as an outpatient Patient Condition at Discharge: Fair Plan - Discharge Summary Discharge Rx Participant: No New Discharge Prescriptions: New fentaNYL 75MCG/HR PATCH [Duragesic 75MCG/HR] 1 patch TRANSDERM Q72H 3 Days #1 patch dexAMETHasone [Hexadrol] 4 mg PO TID #10 tab Ibuprofen [Motrin] 800 mg PO Q8H PRN tab PRN Reason: Pain oxyCODONE-APAP 10-325MG [Percocet 10-325 mg] 1 each PO Q4H PRN #15 tab PRN Reason: Pain Continue Albuterol Sulfate [Albuterol Sulfate Hfa] 2 puff INHALATION RT-QID PRN PRN Reason: Shortness Of Breath Omeprazole 40 mg PO DAILY Folic Acid 1 mg PO DAILY ALPRAZolam [Xanax] 0.5 mg PO TID PRN PRN Reason: Anxiety Sildenafil Citrate 50 mg PO DAILY PRN PRN Reason: ED diphenhydrAMINE [Benadryl] 25 mg PO TID hydrOXYzine HCL [Atarax] 25 mg PO Q6H PRN PRN Reason: Anxiety Ondansetron Odt [Zofran ODT] 8 mg PO Q6H PRN PRN Reason: Nausea And Vomiting Multivitamins, Thera [Multivitamin (formulary)] 1 tab PO DAILY Cholecalciferol [Vitamin D3 (25 Mcg = 1000 Iu)] 25 mcg PO DAILY Albuterol Nebulized [Ventolin Nebulized] 2.5 mg INHALATION RT-QID PRN PRN Reason: Shortness Of Breath Discontinued Hydrocodone/Acetaminophen [[place] 10-325] 1 tab PO Q4H PRN PRN Reason: Pain Morphine Sulfate [Morphine Sulfate ER] 30 mg PO BID Discharge Medication List ALPRAZolam [Xanax] 0.5 mg PO TID PRN 02/21/20 [History] Albuterol Sulfate [Albuterol Sulfate Hfa] 2 puff INHALATION RT-QID PRN 02/21/20 [History] Folic Acid 1 mg PO DAILY 02/21/20 [History] Omeprazole 40 mg PO DAILY 02/21/20 [History] Sildenafil Citrate 50 mg PO DAILY PRN 02/21/20 [History] Albuterol Nebulized [Ventolin Nebulized] 2.5 mg INHALATION RT-QID PRN 05/24/20 [History] Cholecalciferol [Vitamin D3 (25 Mcg = 1000 Iu)] 25 mcg PO DAILY 05/24/20 [History] Multivitamins, Thera [Multivitamin (formulary)] 1 tab PO DAILY 05/24/20 [History] Ondansetron Odt [Zofran ODT] 8 mg PO Q6H PRN 05/24/20 [History] diphenhydrAMINE [Benadryl] 25 mg PO TID 05/24/20 [History] hydrOXYzine HCL [Atarax] 25 mg PO Q6H PRN 05/24/20 [History] Ibuprofen [Motrin] 800 mg PO Q8H PRN tab 05/27/20 [Rx] dexAMETHasone [Hexadrol] 4 mg PO TID #10 tab 05/27/20 [Rx] fentaNYL 75MCG/HR PATCH [Duragesic 75MCG/HR] 1 patch TRANSDERM Q72H 3 Days #1 patch 05/27/20 [Rx] oxyCODONE-APAP 10-325MG [Percocet 10-325 mg] 1 each PO Q4H PRN #15 tab 05/27/20 [Rx] Follow up Appointment(s)/Referral(s): Deuce Tompkins MD [Primary Care Provider] - 1-2 days (Patient to make own appt. Office closed at time of discharge. ) Robert Calhoun MD [STAFF PHYSICIAN] - 1 Week (Patient to make own appt. or keep previously scheduled appt. Office closed at time of discharge. Patient to make appt. with Lara Duckworth on Friday or Friday.) Patient Instructions/Handouts: Ibuprofen (By mouth), Oxycodone/Acetaminophen (By mouth), Fentanyl (Absorbed through the skin), Dexamethasone (By mouth), Pain Management (DC), Fall Prevention (DC) Activity/Diet/Wound Care/Special Instructions: Activity limited. Diet as tolerated. Discharge Disposition: HOME SELF-CARE
--- NOTE | 2020-05-31 10:44 | CDI ---
Documentation Clarification Form Date: 05/31/2020 10:23:00 AM From: Emily Reyes Phone: If you have a question about this query, please contact [employer] Maintainer at [phone] between 8am and 5pm. Admit Date: 05/24/2020 07:57:00 PM Patient Name: Nehemiah Weathers Visit Number: [id number] Discharge Date: 05/27/2020 03:45:00 PM ATTENTION: The Clinical Documentation Specialists (CDI) and [facility] Coding Staff appreciate your assistance in clarifying documentation. Please respond to the clarification below the line at the bottom and electronically sign. The CDI & [facility] Coding staff will review the response and follow-up if needed. Please note: Queries are made part of the Legal Health Record. If you have any questions, please contact the author of this message via ITS. Dr. Mallika Merchant Per Oncology PN 05/27 "49 year old gentleman with a history of metastatic non small cell lung cancer who is here for intractable pain. He was found to have a new pathologic vertebral fracture." Please clarify if patient has a new vertebral pathologic fx. after fall. Patient history/risk factors: Fall, metastatic bone cancer to spine. Clinical Indicators: exacerbation of chronic neoplasm pain Treatment: steroids, pain killers In your professional opinion, please specify the following: Pain due to new vertebral pathologic fracture Neoplasm pain acute/chronic Other (please specify): Unable to determine Pain due to new vertebral pathologic fracture Neoplasm pain acute/chronic MTDD
== END 2020-05-27 15:45 | disposition home or self-care (01) | DRG 543 ==
LOC: EC 16:08 → 5NMEDONC 19:57
PROVIDERS: ADMIT Hospitalist; ATTEND Hospitalist
DX: M84.58XA Pathological fracture in neoplastic disease, other specified site, initial encounter for fracture (principal); C79.51 Secondary malignant neoplasm of bone; C34.92 Malignant neoplasm of unspecified part of left bronchus or lung; C79.31 Secondary malignant neoplasm of brain; G89.3 Neoplasm related pain (acute) (chronic); Z87.891 Personal history of nicotine dependence; K59.03 Drug induced constipation; K62.89 Other specified diseases of anus and rectum; M48.061 Spinal stenosis, lumbar region without neurogenic claudication; T40.605A Adverse effect of unspecified narcotics, initial encounter; W19.XXXA Unspecified fall, initial encounter; Y92.009 Unspecified place in unspecified non-institutional (private) residence as the place of occurrence of the external cause; Z79.51 Long term (current) use of inhaled steroids; Z92.3 Personal history of irradiation; Z91.19 Patient's noncompliance with other medical treatment and regimen; Z79.899 Other long term (current) drug therapy; H26.9 Unspecified cataract; Z87.01 Personal history of pneumonia (recurrent); Z88.1 Allergy status to other antibiotic agents; Z88.0 Allergy status to penicillin; Z88.8 Allergy status to other drugs, medicaments and biological substances; Z86.69 Personal history of other diseases of the nervous system and sense organs; F41.9 Anxiety disorder, unspecified
CPT/HCPCS: 36415; 72131; 72146; 72148; 80053; 82550; 85025; 96374; 96375; 96376; 99285

== ENCOUNTER → 2020-07-24 | Outpatient (CLI) | payer OTHER ==
--- NOTE | 2020-07-24 13:33 | MR ---
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 Post Radiation CONTRAST: 10ml Gadavist Multiplanar and multispin-echo imaging of the brain was performed both before and after the administr ation of contrast. The ventricles, basal cisterns and sulci overlying the cerebral convexities are within normal limits. There is no evidence for midline shift or mass effect. Acute intracranial hemorrhage or extra-axial collection is not evident. There are no abnormal areas of increased or decreased signal intensity within the brain parenchyma. Small enhancing lesion within the right occipital parietal junction measuring 4.6 mm versus 4.5 mm pr eviously. An 5.3 mm enhancing lesion posterior superior left paramedian cerebellum is slightly smalle r in size versus prior study with the previous measurement at 8 mm. No new lesions are identified. The paranasal sinuses and mastoid air cells are well-aerated. IMPRESSION: Small enhancing lesion within the right occipital parietal junction measuring 4.6 mm versus 4.5 mm pr eviously. An 5.3 mm enhancing lesion posterior superior left paramedian cerebellum is slightly smalle r in size versus prior study with the previous measurement at 8 mm. No new lesions are identified.
== END | disposition home or self-care (01) ==
LOC: RADMRIMAIN 10:47
PROVIDERS: ATTEND Radiology Radiation Oncology
DX: C79.31 Secondary malignant neoplasm of brain (principal); C79.51 Secondary malignant neoplasm of bone; C77.9 Secondary and unspecified malignant neoplasm of lymph node, unspecified; Z92.3 Personal history of irradiation; Z87.891 Personal history of nicotine dependence; C34.12 Malignant neoplasm of upper lobe, left bronchus or lung
CPT/HCPCS: 70553; A9585

== ENCOUNTER 2020-07-26 10:12 | Inpatient (IN) | payer OTHER ==
[2020-07-26] MEDS ORDERED: HYDROmorphone 1 MG/ML 1 ML SYRINGE IVP STA ×4 (10:42→17:58)
[2020-07-26] MEDS ORDERED: KETOROLAC 15 MG/ML 1 ML VIAL IVP STA (10:42)
--- NOTE | 2020-07-26 11:07 | ED ---
General Adult HPI - General Chief complaint: Back Pain/Injury Stated complaint: back pain Time Seen by Provider: 07/26/20 10:25 Source: patient, EMS, RN notes reviewed, old records reviewed Mode of arrival: EMS Limitations: no limitations - History of Present Illness Initial comments: This is a 49-year-old male who comes in with a past medical history significant for lung cancer with metastatic disease to the brain and spine. Patient states he is been told he is terminal. Patient continues to go for chemo and radiation of the on the brain. Patient states the back pain however is gotten so much worse but he can't stand it at home. Patient states he just needs some pain medicine so he can go back home and hopefully be more comfortable. Patient states he is on quite a bit of medicine at home but it has not been working. Patient denies any new numbness or weakness patient denies any urinary comments. Patient states he has full range of motion at the hips but the pain is in the lower back to the lateral hip area bilaterally a little worse on the left. Patient states this is all typical of his pain except that the pain is now worse. - Related Data Home Medications Medication Instructions Recorded Confirmed ALPRAZolam [Xanax] 0.5 mg PO TID PRN 02/21/20 07/26/20 Albuterol Sulfate [Albuterol 2 puff INHALATION RT-QID PRN 02/21/20 07/26/20 Sulfate Hfa] Folic Acid 1 mg PO DAILY 02/21/20 07/26/20 Omeprazole 40 mg PO DAILY 02/21/20 07/26/20 Albuterol Nebulized [Ventolin 2.5 mg INHALATION RT-QID PRN 05/24/20 07/26/20 Nebulized] Multivitamins, Thera [Multivitamin 1 tab PO DAILY 05/24/20 07/26/20 (formulary)] Ondansetron Odt [Zofran ODT] 8 mg PO Q6H PRN 05/24/20 07/26/20 Naloxone HCl [Narcan] 4 mg NASAL ONCE PRN 07/26/20 07/26/20 Sildenafil Citrate 100 mg PO DAILY PRN 07/26/20 07/26/20 oxyCODONE-APAP 10-325MG [Percocet 1 tab PO Q6H PRN 07/26/20 07/26/20 10-325 mg] Previous Rx's Medication Instructions Recorded fentaNYL 75MCG/HR PATCH [Duragesic 1 patch TRANSDERM Q72H 3 Days #1 05/27/20 75MCG/HR] patch Allergies Allergy/AdvReac Type Severity Reaction Status Date / Time No Known Allergies Allergy Verified 07/26/20 12:31 Review of Systems ROS Statement: Those systems with pertinent positive or pertinent negative responses have been documented in the HPI. ROS Other: All systems not noted in ROS Statement are negative. Past Medical History Past Medical History: Cancer, Pneumonia Additional Past Medical History / Comment(s): Hx bells palsy (July 2017), left lung cancer with lobectomy October 2018 ([facility]), states spot of cancer on brain-received radiation tx, pneumonia (07/2018), has cataract right eye, L spine CA. L4 kyphoplasty in February 2020 History of Any Multi-Drug Resistant Organisms: None Reported Past Surgical History: No Surgical Hx Reported Additional Past Surgical History / Comment(s): oral surgery, vasectomy, left lung lobectomy (October 2018 @ [facility]) Past Anesthesia/Blood Transfusion Reactions: No Reported Reaction Past Psychological History: No Psychological Hx Reported Smoking Status: Former smoker Past Alcohol Use History: Rare Past Drug Use History: Marijuana - Past Family History Father Family Medical History: Renal Disease Additional Family Medical History / Comment(s): . General Exam - General Exam Comments Initial Comments: GENERAL: Patient is well-developed and well-nourished. Patient is nontoxic and well- hydrated and is in moderate distress. ENT: Neck is soft and supple. No significant lymphadenopathy is noted. Oropharynx is clear. Moist mucous membranes. Neck has full range of motion without eliciting any pain. EYES: The sclera were anicteric and conjunctiva were pink and moist. Extraocular movements were intact and pupils were equal round and reactive to light. Eyelids were unremarkable. SKIN: Skin is clear with no lesions or rashes and otherwise unremarkable. NEUROLOGIC: Patient is alert and oriented x3. Cranial nerves II through XII are grossly intact. Motor and sensory are also intact. Normal speech, volume and content. Symmetrical smile. Straight leg test was done bilaterally. Straight leg test was done bilaterally and normal. she had normal sensation MUSCULOSKELETAL: Normal extremities with adequate strength and full range of motion. LYMPHATICS: No significant lymphadenopathy is noted PSYCHIATRIC: Normal psychiatric evaluation. Limitations: no limitations Course Vital Signs 07/26/20 07/26/20 07/26/20 10:25 10:34 12:38 Temperature 98.4 F Pulse Rate 94 65 Respiratory 18 18 Rate Blood Pressure 166/95 131/82 O2 Sat by Pulse 94 L 96 Oximetry Medical Decision Making - Medical Decision Making Lumbosacral spine shows signs consistent with metastatic disease. Patient received 3 doses of Dilaudid and 1 of Toradol and he continued to have pain he states he did not feel as though he can go home because he was in too much pain. I spoke with Dr. pearson she agreed to admit the patient admitted the patient wrote admitting orders. I consulted Dr. Calhoun and Dr. Willoughby Disposition Clinical Impression: Intractable back pain Disposition: ADMITTED IP TO THIS HOSP Referrals: Deuce Tompkins MD [Primary Care Provider] - 1-2 days Time of Disposition: 13:39
[2020-07-26] MEDS ORDERED: HYDROmorphone 0.5 MG/0.5 ML SYRINGE IVP STA ×2 (11:36→12:35)
--- NOTE | 2020-07-26 13:14 | XR ---
EXAMINATION TYPE: XR lumbosacral spine min 4V DATE OF EXAM: 07/26/2020 CLINICAL HISTORY: pain COMPARISON: NONE TECHNIQUE: Frontal, lateral, and oblique images of the lumbar spine are obtained. FINDINGS: Sclerotic lesions are compatible with metastatic disease to L4 and L5 as well as T10, T11 and T12. There are 5 lumbar type vertebral bodies identified. The lumbar spine shows satisfactory al ignment without evidence of acute fracture or dislocation. Vertebral body heights are within normal l imits. Disc spaces are well preserved. The overlying soft tissue appears unremarkable. IMPRESSION: Findings compatible with metastatic disease.
[2020-07-26] MEDS ORDERED: SODIUM CHLORIDE 0.9% 1,000 ML IV ONE (13:39)
[2020-07-26] MEDS ORDERED: HYDROmorphone 0.5 MG/0.5 ML SYRINGE IVP PRN (13:41)
[2020-07-26] MEDS: LORazepam 2 MG/ML INJ IV PRN (16:11)
[2020-07-26] MEDS: HYDROmorphone 1 MG/ML 1 ML SYRINGE IVP PRN (19:57)
[2020-07-26] MEDS ORDERED: oxyCODONE-APAP 10-325MG 1 EACH TAB PO STA (20:33)
[2020-07-26] MEDS: KETOROLAC 15 MG/ML 1 ML VIAL IVP SCH (20:39)
[2020-07-26] MEDS ORDERED: ALBUTEROL NEBULIZED 2.5 MG/3 ML INHALATION PRN (22:42)
[2020-07-26] MEDS ORDERED: ALBUTEROL HFA INHALER INHALATION PRN (22:42)
--- NOTE | 2020-07-26 22:53 | P.HPIM ---
History of Present Illness H&P Date: 07/26/20 Chief Complaint: Acute on Chronic Low back pain Mr. Weathers is a 49-year-old male with a past medical history of metastatic lung cancer with mets to brain and spine coming in the hospital with a chief complaint of acute on chronic low back pain. Patient has a known history of left lung cancer with lobectomy in October 2018, metastatic lesions to the brain and spine status post radiation therapy. Patient's mother, and therapy dog at the bedside. Patient states that he has been pain and continues to be morning in pain. He states that he took his pain medication at home but they have not been helping him. He takes Percocet, fentanyl patch at home to help him with pain. Other than pain patient states he does not have any other complaints.He denies having any loss of control of his bowel or bladder. No weakness of his extremities. Patient denies having any fevers chills or rigors. No cough or difficulty in breathing. No chest pain or palpitations. No abdominal pain nausea vomiting or diarrhea. No dysuria or hematuria. Denies having any swelling of his lower extremities. In the ER patient was given 3 doses of Dilaudid and a dose of Toradol and admitted for further management. Orthopedics and pain management services have been consulted as well. Review of Systems REVIEW OF SYSTEMS: CONSTITUTIONAL: No fever, fatigue or malaise HEENT: No recent visual problems or hearing problems. Denied any sore throat. CARDIOVASCULAR: No chest pain, orthopnea, PND, no palpitations, no syncope. PULMONARY: Difficulty in breathing at baseline, no cough GASTROINTESTINAL: No diarrhea, no nausea, no vomiting, no abdominal pain. NEUROLOGICAL: Mild headaches, no weakness, no numbness. HEMATOLOGICAL: Denies any bleeding or petechiae. GENITOURINARY: Denies any burning micturition, frequency, or urgency. MUSCULOSKELETAL/RHEUMATOLOGICAL: As per HPI. ENDOCRINE: Denies any polyuria or polydipsia. The rest of the 14-point review of systems is negative. Past Medical History Past Medical History: Cancer, Pneumonia Additional Past Medical History / Comment(s): Hx bells palsy (July 2017), left lung cancer with lobectomy October 2018 ([facility]), states spot of cancer on brain-received radiation tx, pneumonia (07/2018), has cataract right eye, L spine CA. L4 kyphoplasty in February 2020 History of Any Multi-Drug Resistant Organisms: None Reported Past Surgical History: No Surgical Hx Reported Additional Past Surgical History / Comment(s): oral surgery, vasectomy, left lung lobectomy (October 2018 @ [facility]) Past Anesthesia/Blood Transfusion Reactions: No Reported Reaction Past Psychological History: No Psychological Hx Reported Smoking Status: Former smoker Past Alcohol Use History: Rare Past Drug Use History: Marijuana - Past Family History Father Family Medical History: Renal Disease Additional Family Medical History / Comment(s): . Medications and Allergies Home Medications Medication Instructions Recorded Confirmed Type ALPRAZolam [Xanax] 0.5 mg PO TID PRN 02/21/20 07/26/20 History Albuterol Sulfate [Albuterol 2 puff INHALATION RT-QID PRN 02/21/20 07/26/20 History Sulfate Hfa] Folic Acid 1 mg PO DAILY 02/21/20 07/26/20 History Omeprazole 40 mg PO DAILY 02/21/20 07/26/20 History Albuterol Nebulized [Ventolin 2.5 mg INHALATION RT-QID PRN 05/24/20 07/26/20 History Nebulized] Multivitamins, Thera [Multivitamin 1 tab PO DAILY 05/24/20 07/26/20 History (formulary)] Ondansetron Odt [Zofran ODT] 8 mg PO Q6H PRN 05/24/20 07/26/20 History fentaNYL 75MCG/HR PATCH [Duragesic 1 patch TRANSDERM Q72H 3 Days #1 05/27/20 07/26/20 Rx 75MCG/HR] patch Naloxone HCl [Narcan] 4 mg NASAL ONCE PRN 07/26/20 07/26/20 History Sildenafil Citrate 100 mg PO DAILY PRN 07/26/20 07/26/20 History oxyCODONE-APAP 10-325MG [Percocet 1 tab PO Q6H PRN 07/26/20 07/26/20 History 10-325 mg] Allergies Allergy/AdvReac Type Severity Reaction Status Date / Time No Known Allergies Allergy Verified 07/26/20 12:31 Physical Exam Vitals: Vital Signs Temp Pulse Resp BP Pulse Ox 07/26/20 20:40 98.2 F 80 20 198/97 96 07/26/20 18:00 89 20 199/99 96 07/26/20 12:38 65 18 131/82 96 07/26/20 10:34 98.4 F 07/26/20 10:25 94 18 166/95 94 L Intake and Output 07/26/20 07/26/20 07/26/20 06:59 14:59 22:59 Other: Weight 97.976 kg PHYSICAL EXAMINATION: GENERAL: The patient is alert and oriented x3, not in any acute distress. Moaning with pain HEENT: Pupils are round and equally reacting to light. EOMI. No scleral icterus. mild conjunctival pallor. CARDIOVASCULAR: S1 and S2 present. Tachycardia PULMONARY: Chest is clear to auscultation, no wheezing or crackles. ABDOMEN: Soft, nontender, nondistended, normoactive bowel sounds. No palpable organomegaly. MUSCULOSKELETAL: Could not exam the back, he was not able to move due to sever pain EXTREMITIES: No cyanosis, clubbing. No pedal edema NEUROLOGICAL: Gross neurological examination did not reveal any focal deficits. SKIN: No rashes. Assessment and Plan Assessment: ASSESSMENT Intractable back pain due to metastatic lesions Metastatic lung cancer History of brain mets and status post radiation. Marijuana use on daily basis DVT prophylaxis. PLAN: Patient was admitted for intractable back pain due to metastatic lung cancer. We will start him on pain medication in the form of IV Dilaudid 2 mg every 3 hours. As the patient did not get blood work done in the ER, will order CBC and CMP. Patient has been restarted on home medications. Protonix for GI prophylaxis and Lovenox for DVT prophylaxis. The treatment plan was discussed in detail with the patient, his mother and at the bedside. Orthopedics and pain services have been consulted as well. Further recommendations to follow depending on the progress of the patient.
[2020-07-27 00:02] LABS: Basophils # (A) 0.1 k/uL (0-0.2); Basophils % (A) 1 %; Eosinophils # (A) 0.9 k/uL (0-0.7); Eosinophils % (A) 12 %; HCT 40.9 % (39.0-53.0); HGB 13.4 gm/dL (13.0-17.5); Lymphocytes # (A) 1.4 k/uL (1.0-4.8); Lymphocytes % (A) 19 %; MCHC 32.8 g/dL (31.0-37.0); MCV 91.6 fL (80.0-100.0); Mean Platelet Volume 8.8; Monocytes # (A) 0.8 k/uL (0-1.0); Monocytes % (A) 10 %; Neutrophils # (A) 4.3 k/uL (1.3-7.7); Neutrophils % (A) 57 %; Platelet Count 201 k/uL (150-450); RBC 4.46 m/uL (4.30-5.90); RDW 13.6 % (11.5-15.5); WBC 7.6 k/uL (3.8-10.6)
[2020-07-27] MEDS: KETOROLAC 15 MG/ML 1 ML VIAL IVP SCH ×4 (00:05→17:23)
[2020-07-27] MEDS: LORazepam 2 MG/ML INJ IV PRN (00:07)
[2020-07-27 00:25] LABS: ALT 91 U/L (4-49); AST 57 U/L (17-59); African American GFR (CKD) >90 (>60 ml/min/1.73 sqM); Albumin 3.7 g/dL (3.5-5.0); Albumin/Globulin Ratio 1.4; Alkaline Phosphatase 116 U/L (38-126); Anion Gap 6 mmol/L; Blood Urea Nitrogen 8 mg/dL (9-20); Calcium 8.6 mg/dL (8.4-10.2); Carbon Dioxide 28 mmol/L (22-30); Chloride 101 mmol/L (98-107); Globulin 2.7 g/dL; Glucose 123 mg/dL (74-99); Non-African American GFR(CKD) >90 (>60 ml/min/1.73 sqM); Potassium 4.2 mmol/L (3.5-5.1); Sodium 135 mmol/L (137-145); Total Bilirubin 1.2 mg/dL (0.2-1.3); Total Protein 6.4 g/dL (6.3-8.2)
[2020-07-27] MEDS: HYDROmorphone 1 MG/ML 1 ML SYRINGE IVP PRN ×6 (04:34→21:04)
[2020-07-27] MEDS: FOLIC ACID 1 MG TAB PO SCH (08:29)
[2020-07-27] MEDS: ENOXAPARIN 40 MG/0.4 ML SYRINGE SQ SCH (08:30)
[2020-07-27] MEDS: MULTIVITAMINS, THERA 1 EACH TAB PO SCH (08:30)
[2020-07-27] MEDS: PANTOPRAZOLE 40 MG TABLET PO SCH (08:30)
[2020-07-27] MEDS ORDERED: PANTOPRAZOLE 40 MG TABLET PO SCH (09:00)
[2020-07-27] MEDS: oxyCODONE-APAP 10-325MG 1 EACH TAB PO PRN ×2 (10:21→22:45)
--- NOTE | 2020-07-27 10:47 | P.CNOR ---
History of Present Illness - HPI Consult date: 07/27/20 Consult reason: low back pain History of present illness: Patient is known to our service. He seen and examined today at bedside. He is a 49-year-old male with known history of metastatic cancer to his spine and brain. He has had chronic pain and has had acute worsening over the past couple days. He says that he was changing a tire on his car and the next day's was having severe pain where he was unable to get up out of bed. Says the pain is primarily at his left side of his lower back toward his left hip. He denies any changes in bowel bladder function. He denies any numbness tingling in his lower extremity is. He says that overall he has great deal of pain is back and has difficulty getting around but needed his car and had to change the tire. His ago. His mother is at his bedside and says that since that he is having significant increase in his pain. He denies any fevers chills or night sweats. Review of Systems As per HPI. Denies any changes in bowel bladder function. Denies any loss of control of bladder function. He denies any new weakness in his lower extremities. He is significant pain in his back whenever he tries to mobilize her get up. This pain is somewhat similar to his prior pain in the past but acutely worsened over the past few days. He says that he has a brace at home but he does not use it. Past Medical History Past Medical History: Cancer, Pneumonia Additional Past Medical History / Comment(s): Hx bells palsy (July 2017), left lung cancer with lobectomy October 2018 ([facility]), states spot of cancer on brain-received radiation tx, pneumonia (07/2018), has cataract right eye, L spine CA. L4 kyphoplasty in February 2020 History of Any Multi-Drug Resistant Organisms: None Reported Past Surgical History: No Surgical Hx Reported Additional Past Surgical History / Comment(s): oral surgery, vasectomy, left lung lobectomy (October 2018 @ [facility]) Past Anesthesia/Blood Transfusion Reactions: No Reported Reaction Past Psychological History: No Psychological Hx Reported Smoking Status: Former smoker Past Alcohol Use History: Rare Past Drug Use History: Marijuana - Past Family History Father Family Medical History: Renal Disease Additional Family Medical History / Comment(s): . Medications and Allergies Home Medications Medication Instructions Recorded Confirmed Type ALPRAZolam [Xanax] 0.5 mg PO TID PRN 02/21/20 07/26/20 History Albuterol Sulfate [Albuterol 2 puff INHALATION RT-QID PRN 02/21/20 07/26/20 History Sulfate Hfa] Folic Acid 1 mg PO DAILY 02/21/20 07/26/20 History Omeprazole 40 mg PO DAILY 02/21/20 07/26/20 History Albuterol Nebulized [Ventolin 2.5 mg INHALATION RT-QID PRN 05/24/20 07/26/20 History Nebulized] Multivitamins, Thera [Multivitamin 1 tab PO DAILY 05/24/20 07/26/20 History (formulary)] Ondansetron Odt [Zofran ODT] 8 mg PO Q6H PRN 05/24/20 07/26/20 History fentaNYL 75MCG/HR PATCH [Duragesic 1 patch TRANSDERM Q72H 3 Days #1 05/27/20 07/26/20 Rx 75MCG/HR] patch Naloxone HCl [Narcan] 4 mg NASAL ONCE PRN 07/26/20 07/26/20 History Sildenafil Citrate 100 mg PO DAILY PRN 07/26/20 07/26/20 History oxyCODONE-APAP 10-325MG [Percocet 1 tab PO Q6H PRN 07/26/20 07/26/20 History 10-325 mg] Allergies Allergy/AdvReac Type Severity Reaction Status Date / Time No Known Allergies Allergy Verified 07/26/20 12:31 Physical Examination Osteopathic Statement: *. No significant issues noted on an osteopathic structural exam other than those noted in the History and Physical/Consult. - L Spine: dermatomal strength & reflexes bilateral Strength: hip flexion: 5/5 (His back is pain with any motion when he tries to roll over sit up. This terminated located left side. There is no focal point tenderness. He has diffuse spasm. He has sustained dorsal flexion plantarflexion EHL hip flexion and knee extension intact. Thighs and calves soft nontender. No saddle) Strength: hip extension: 5/5 (There does not appear to be any saddle paresthesia.) Results - Labs Labs: Abnormal Lab Results - Last 24 Hours (Table) 07/26/20 07/26/20 Range/Units 23:47 23:47 Eosinophils # 0.9 H (0-0.7) k/uL Sodium 135 L (137-145) mmol/L BUN 8 L (9-20) mg/dL Glucose 123 H (74-99) mg/dL ALT 91 H (4-49) U/L H & H 07/26/20 Range/Units 23:47 Hgb 13.4 (13.0-17.5) gm/dL Hct 40.9 (39.0-53.0) % Result Diagrams: 07/26/20 23:47 07/26/20 23:47 - Diagnostic results Lumbar AP/lateral x-ray: report reviewed, image reviewed (Lumbar x-ray report is reviewed. There is no obvious change. He does not have any new obvious compression or instability noted.) Assessment and Plan Assessment: Acute on chronic low back pain without obvious fracture History of L4 kyphoplasty Metastatic lung CA with multiple spinal and brain metastasis No evidence of new neurologic change Plan: Acute on chronic low back pain without obvious fracture History of L4 kyphoplasty Metastatic lung CA with multiple spinal and brain metastasis No evidence of new neurologic change The patient has been having significant pain on and off for the past year. He had limited improvement with the kyphoplasty in February. I do not see any obvious new compression deformity or fracture. He seems to have some acute strain due to his activity and his muscle metastasis at his spine. He is not having a focal neurologic deficit. I do not have plans for surgical intervention at this point. It is okay for him to try to mobilize but I think he should try to use his LSO brace whenever he is up out of bed. I've asked his family to try to bring in an for him. He had been having some good relief with pain medications past but is becoming more difficult for him. I think that pain management could be helpful in some medical management recommendations for him. I do not plan any surgical intervention and would defer medical management to oncology order pain management. He has significant difficulty dealing with his current status being a young person who was used to doing significant amount of heavy work. He could benefit significant from active counseling.
--- NOTE | 2020-07-27 13:42 | P.CONS ---
History of Present Illness - Reason for Consult Consult date: 07/27/20 Metastic neooplastic lung cancer pain Requesting physician: Norbert Bright - Chief Complaint pain - History of Present Illness Mr Weathers he is a pleasant white male, with overall minor medical problems. The patient was admitted to [facility] in 07/21, with progressive shortness of breath, and cough. The patient had been noted to have a left parahilar mass, as an outpatient when evaluated by pulmonary medicine. He was supposed to have a PET scan, but got admitted for worsening shortness of breath and cough. He was diagnosed with influenza and started on Tamiflu. The mass was in the left perihilar region, and was felt to be difficult to access by bronchoscopy. The patient was therefore transferred to [facility]. He underwent bronchoscopy and EBUS on 07/23/18. The pathology came back positive for malignant cells, with the report indicating adenocarcinoma NOS. Mediastinal staging is planned for 08/21/18 at [facility] The patient had a PET scan on 07/25/18, which showed uptake in the left hilar mass. The patient had mild uptake in infiltrative changes in both upper lobes that were suggestive of inflammation, likely from his recent bilateral pneumonia. He was then referred here for further evaluation and recommendations. The patient is an ex-smoker, but quit in 1999. He had an EBUS at [facility] on 08/17/18, with procedure incomplete due to sedation not being effective. He had a repeat on 08/19, with biopsies negative ( though 2 samples were felt to be non diagnostic). MRI brain showed a 2.5mm focus of enhancement in the left frontal, likely vascular, but small met not excluded the patient had an MRA done to assess this further. Bleeding was discussed with radiology. As a specific vascular malformation was not seen in this area, it was felt that metastasis was definitely in the differential He denied any f/c/n/v/LAD. He continues to have b/l chest discomfort ( described as burning) with dry cough , exacerbated by exertion. Endurance is reduced from baseline. he denied any MACIAS or visual complaints. On 10/03/18: He had SRS to solitary brain lesion (09/24/18, Dr Meza), then was taken to OR by Dr Mobley on 10/16/18, had left upper Lobectomy revealing 7cm Adenocarcinoma of lung with mets to [address] LN (L5), all margins of resection negative. He recovered well, denies anorexia or weight loss, has post-op L chest wall pain, controlled with CBD oil only. No headache or [employer]-related symptoms. On 12.22.18: PDL-1 greater than 90%, Liquid bx without identified mutations. Feeling better than last week. 02/23/19: Had traumatic fall (off bed) with R sided chest pain. Completed 4 cycles of Carboplatinum+Alimta+Keytruda. He was doing well on Keytruda maintenance alone from February 2019 through October of 2019. Unfortunately, In October 2019 presented with C/O lower back pain radiating to L hip > very severe. MRI: Lytic lesion at L4. PET Scan: Lesion in L4 only. Underwent XRT to L4, will have brain XRT soon. On MS contin+ [place], pain is still severe. He was started on Xgeva Gardant 360 ERBB2/Her2 exon 20 insertion. Recurrence in the brain in November 2019: Completed XRT to brain & L4, pain is well controlled. He is status POst cycle 3 of opdivo and yervoy Review of Systems All systems: negative Constitutional: Reports as per HPI Past Medical History Past Medical History: Cancer, Pneumonia Additional Past Medical History / Comment(s): Hx bells palsy (July 2017), left lung cancer with lobectomy October 2018 ([facility]), states spot of cancer on brain-received radiation tx, pneumonia (07/2018), has cataract right eye, L spine CA. L4 kyphoplasty in February 2020 History of Any Multi-Drug Resistant Organisms: None Reported Past Surgical History: No Surgical Hx Reported Additional Past Surgical History / Comment(s): oral surgery, vasectomy, left lung lobectomy (October 2018 @ [facility]) Past Anesthesia/Blood Transfusion Reactions: No Reported Reaction Past Psychological History: No Psychological Hx Reported Smoking Status: Former smoker Past Alcohol Use History: Rare Past Drug Use History: Marijuana - Past Family History Father Family Medical History: Renal Disease Additional Family Medical History / Comment(s): . Medications and Allergies Home Medications Medication Instructions Recorded Confirmed Type ALPRAZolam [Xanax] 0.5 mg PO TID PRN 02/21/20 07/26/20 History Albuterol Sulfate [Albuterol 2 puff INHALATION RT-QID PRN 02/21/20 07/26/20 History Sulfate Hfa] Folic Acid 1 mg PO DAILY 02/21/20 07/26/20 History Omeprazole 40 mg PO DAILY 02/21/20 07/26/20 History Albuterol Nebulized [Ventolin 2.5 mg INHALATION RT-QID PRN 05/24/20 07/26/20 History Nebulized] Multivitamins, Thera [Multivitamin 1 tab PO DAILY 05/24/20 07/26/20 History (formulary)] Ondansetron Odt [Zofran ODT] 8 mg PO Q6H PRN 05/24/20 07/26/20 History fentaNYL 75MCG/HR PATCH [Duragesic 1 patch TRANSDERM Q72H 3 Days #1 05/27/20 07/26/20 Rx 75MCG/HR] patch Naloxone HCl [Narcan] 4 mg NASAL ONCE PRN 07/26/20 07/26/20 History Sildenafil Citrate 100 mg PO DAILY PRN 07/26/20 07/26/20 History oxyCODONE-APAP 10-325MG [Percocet 1 tab PO Q6H PRN 07/26/20 07/26/20 History 10-325 mg] Allergies Allergy/AdvReac Type Severity Reaction Status Date / Time No Known Allergies Allergy Verified 07/26/20 12:31 Physical Exam Vitals: Vital Signs Temp Pulse Pulse Resp BP BP Pulse Ox 07/27/20 04:42 98.5 F 84 18 166/81 95 07/26/20 22:48 98.0 F 100 18 169/90 96 07/26/20 22:40 18 07/26/20 20:40 98.2 F 80 20 198/97 96 07/26/20 18:00 89 20 199/99 96 Intake and Output 07/26/20 07/27/20 07/27/20 22:59 06:59 14:59 Intake Total 100 Balance 100 Intake: Oral 100 Other: Voiding Method Toilet Toilet Urinal # Voids 1 1 Weight 97.976 kg Constitutional General appearance: cooperative, no acute distress - EENT Eyes: EOMI, PERRLA ENT: NA/AT, normal oropharynx - Neck Neck: normal ROM - Respiratory Respiratory: bilateral: diminished (lower) - Cardiovascular Rhythm: regular Heart sounds: normal: S1, S2 - Gastrointestinal General gastrointestinal: soft - Integumentary Integumentary: pale - Neurologic Neurologic: CNII-XII intact - Musculoskeletal Musculoskeletal: generalized weakness, right sided weakness - Psychiatric Depressed and anxious Psychiatric: A&O x's 3, appropriate affect Results CBC & Chem 7: 07/26/20 23:47 07/26/20 23:47 Labs: Abnormal Lab Results - Last 24 Hours (Table) 07/26/20 07/26/20 Range/Units 23:47 23:47 Eosinophils # 0.9 H (0-0.7) k/uL Sodium 135 L (137-145) mmol/L BUN 8 L (9-20) mg/dL Glucose 123 H (74-99) mg/dL ALT 91 H (4-49) U/L Assessment and Plan Plan: Assessment and Recommendations: Neoplastic related pain/Spasms: - Muscle relaxer ATC and increase short acting to 15mg oxy. - Fentanyl to continue Metastatic Non-Small Cell Lung Cancer: - Status POst cycle 3 of Hedy Pain management following for option of epidural.
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
--- NOTE | 2020-07-27 14:02 | P.PAINCN ---
History of Present Illness - Reason for Consult Consult date: 07/27/20 - History of Present Illness This is 49 years old male with a chronic history of severe low back pain, started more than 2 years ago, patient diagnosed with lung cancer with metastases to the spine, and he had compression fracture of the lumbar spine, and he was treated previously with kyphoplasty, over the last couple of days patient started complaining of severe progressive low back pain with radiation to the lower extremity bilaterally, it's constant , increased with any movement or changing position, patient not able to ambulate secondary to an intensity of the pain, patient currently on Percocet 10/325 every 4 hours and fentanyl patch 75 g, and Dilaudid 1-2 mg IV every 3 hours he continued to have severe and intractable pain Past Medical History Past Medical History: Cancer, Pneumonia Additional Past Medical History / Comment(s): Hx bells palsy (July 2017), left lung cancer with lobectomy October 2018 ([facility]), states spot of cancer on brain-received radiation tx, pneumonia (07/2018), has cataract right eye, L spine CA. L4 kyphoplasty in February 2020 History of Any Multi-Drug Resistant Organisms: None Reported Past Surgical History: No Surgical Hx Reported Additional Past Surgical History / Comment(s): oral surgery, vasectomy, left lung lobectomy (October 2018 @ [facility]) Past Anesthesia/Blood Transfusion Reactions: No Reported Reaction Past Psychological History: No Psychological Hx Reported Smoking Status: Former smoker Past Alcohol Use History: Rare Past Drug Use History: Marijuana - Past Family History Father Family Medical History: Renal Disease Additional Family Medical History / Comment(s): . Medications and Allergies Home Medications Medication Instructions Recorded Confirmed Type ALPRAZolam [Xanax] 0.5 mg PO TID PRN 02/21/20 07/26/20 History Albuterol Sulfate [Albuterol 2 puff INHALATION RT-QID PRN 02/21/20 07/26/20 History Sulfate Hfa] Folic Acid 1 mg PO DAILY 02/21/20 07/26/20 History Omeprazole 40 mg PO DAILY 02/21/20 07/26/20 History Albuterol Nebulized [Ventolin 2.5 mg INHALATION RT-QID PRN 05/24/20 07/26/20 History Nebulized] Multivitamins, Thera [Multivitamin 1 tab PO DAILY 05/24/20 07/26/20 History (formulary)] Ondansetron Odt [Zofran ODT] 8 mg PO Q6H PRN 05/24/20 07/26/20 History fentaNYL 75MCG/HR PATCH [Duragesic 1 patch TRANSDERM Q72H 3 Days #1 05/27/20 07/26/20 Rx 75MCG/HR] patch Naloxone HCl [Narcan] 4 mg NASAL ONCE PRN 07/26/20 07/26/20 History Sildenafil Citrate 100 mg PO DAILY PRN 07/26/20 07/26/20 History oxyCODONE-APAP 10-325MG [Percocet 1 tab PO Q6H PRN 07/26/20 07/26/20 History 10-325 mg] Allergies Allergy/AdvReac Type Severity Reaction Status Date / Time No Known Allergies Allergy Verified 07/26/20 12:31 Physical Exam Vitals: Vital Signs Temp Pulse Pulse Resp BP BP Pulse Ox 07/27/20 04:42 98.5 F 84 18 166/81 95 07/26/20 22:48 98.0 F 100 18 169/90 96 07/26/20 22:40 18 07/26/20 20:40 98.2 F 80 20 198/97 96 07/26/20 18:00 89 20 199/99 96 Intake and Output 07/26/20 07/27/20 07/27/20 22:59 06:59 14:59 Intake Total 100 Balance 100 Intake: Oral 100 Other: Voiding Method Toilet Toilet Urinal # Voids 1 1 Weight 97.976 kg Physical Examinations : -Constitutiona : Cooperative , not in acute distress . -HEENT : nech : supple , no Lymphadenopathy , normal thyroid size . : eyes : no ptosis , no icterus, no photophobia . - neurologic : Cranial nerve II to XII intact , no focal neurological deffecit . -psychatric : alert , oriented X 3 , appropriate affect , intact judgment and insight . -Lymphatic : no Lymphadenopathy . - musculoskeltal : . Lumber spine moter stegnth lower extremities ,thigh and legs 4/5 Right side , 4/5 Left side deep tendon reflexes : normal Knee Jerk , normal ankle Jerk lumber facet Loading Test =positive Right , positive Left Range of motion of the lumbar spine Flexion 10 degrees, extension 10 degrees strait leg raising test = positive at 60 degree Fabere test= negative bilaterally. Sever tenderness over the Sacroiliac joint on the Left sides Gaenslen test= positive on the left . Seated flexion test= positive on the Left Sacroiliac compression test= positive on the left side Results CBC & Chem 7: 07/26/20 23:47 07/26/20 23:47 Labs: Abnormal Lab Results - Last 24 Hours (Table) 07/26/20 07/26/20 Range/Units 23:47 23:47 Eosinophils # 0.9 H (0-0.7) k/uL Sodium 135 L (137-145) mmol/L BUN 8 L (9-20) mg/dL Glucose 123 H (74-99) mg/dL ALT 91 H (4-49) U/L Comments: X-ray of the lumbar spine lumbar degenerative disc disease MRI of the lumbar spine= pathological fracture of L4, metastatic disease, lumbar degenerative disc disease, lumbar facet arthropathy Assessment and Plan Plan: Assessment and plan=1-lumbar degenerative disc disease. 2-left sacroiliitis. 3-metastatic disease to the lumbar spine. 4-lumbar spondylosis with lumbar facet arthropathy. 5-pain secondary to malignancy. he could benefit from lumbar epidural steroid injection the fluoroscopy guidance, and he could benefit from left-sided sacroiliac joint steroid injection, discussed with the patient the option of doing post procedure today, Patient will decide by tomorrow, otherwise the procedure can be done as an outpatient in the future if he decides to proceed, Patient could benefit from Lyrica 50 milligrams twice a day, patient tried Neurontin without any benefit, this reason we cannot start Lyrica. Please hold Lovenox if patient decides to proceed with the procedure tomorrow, and keep patient nothing by mouth after midnight if he want the the procedure to be done tomorrow Time with Patient: Greater than 30 PQRS Measure Charge Sheet PQRS Narrative: Smoking Status Former smoker Do You Want the Pneumonia No Vaccine AT THIS TIME? Blood Pressure [Right Arm] 166/81 Blood Pressure 198/97 Pain Intensity [Back] 7 Pain Intensity 8 Pain Scale Used Numeric (1 - 10) Scale Used Numeric (1 - 10) Home Medications: Ambulatory Orders ALPRAZolam [Xanax] 0.5 mg PO TID PRN 02/21/20 Albuterol Sulfate [Albuterol Sulfate Hfa] 2 puff INHALATION RT-QID PRN 02/21/20 Folic Acid 1 mg PO DAILY 02/21/20 Omeprazole 40 mg PO DAILY 02/21/20 Albuterol Nebulized [Ventolin Nebulized] 2.5 mg INHALATION RT-QID PRN 05/24/20 Multivitamins, Thera [Multivitamin (formulary)] 1 tab PO DAILY 05/24/20 Ondansetron Odt [Zofran ODT] 8 mg PO Q6H PRN 05/24/20 fentaNYL 75MCG/HR PATCH [Duragesic 75MCG/HR] 1 patch TRANSDERM Q72H 3 Days #1 patch 05/27/20 Naloxone HCl [Narcan] 4 mg NASAL ONCE PRN 07/26/20 Sildenafil Citrate 100 mg PO DAILY PRN 07/26/20 oxyCODONE-APAP 10-325MG [Percocet 10-325 mg] 1 tab PO Q6H PRN 07/26/20
[2020-07-27] MEDS: SENNOSIDES-DOCUSATE SODIUM 1 EACH TAB PO SCH (14:05)
--- NOTE | 2020-07-27 16:21 | P.PN ---
Subjective Progress Note Date: 07/27/20 Mr. Weathers is a 49-year-old male with a past medical history of metastatic lung cancer with mets to brain and spine coming in the hospital with a chief complaint of acute on chronic low back pain. Patient has a known history of left lung cancer with lobectomy in October 2018, metastatic lesions to the brain and spine status post radiation therapy. Patient's mother, and therapy dog at the bedside. Patient states that he has been pain and continues to be morning in pain. He states that he took his pain medication at home but they have not been helping him. He takes Percocet, fentanyl patch at home to help him with pain. Other than pain patient states he does not have any other complaints.He denies having any loss of control of his bowel or bladder. No weakness of his extremities. Patient denies having any fevers chills or rigors. No cough or difficulty in breathing. No chest pain or palpitations. No abdominal pain nausea vomiting or diarrhea. No dysuria or hematuria. Denies having any swelling of his lower extremities. In the ER patient was given 3 doses of Dilaudid and a dose of Toradol and admitted for further management. Orthopedics and pain management services have been consulted as well. 07/27/2020 Patient is seen and evaluated and follow-up and continues to be in 10 out of 10 pain in his lower back and states the Dilaudid is not helping. Multiple medical consultations including oncology, Dr. Willoughby, and pain management following an patient will undergo epidural injection in the morning with Dr. Dubois. Will consult psychiatry for continued depression. Patient denies any thoughts of suicide or wanting to harm himself or others. at the bedside. Patient states he is unable to get up out of the bed due to severe pain and has been laying in the bed. Patient is tolerating diet with no reports of nausea or vomiting noted. Review of systems: Constitutional: No reports of fatigue, fever, or chills, reports continued severe back pain Cardiovascular: No reports of chest pain or palpitations Respiratory: No reports of shortness of breath or cough GI: No reports of nausea, vomiting, or diarrhea : No reports of dysuria or retention Neurovascular: reports generalized weakness All medications have been reviewed Objective - Vital Signs Vital signs: Vital Signs Temp 98.5 F 07/27/20 04:42 Pulse 84 07/27/20 04:42 Resp 18 07/27/20 04:42 BP 166/81 07/27/20 04:42 Pulse Ox 95 07/27/20 04:42 Intake & Output 07/26/20 07/27/20 07/27/20 18:59 06:59 18:59 Intake Total 100 Balance 100 Weight 97.976 kg 97.976 kg Intake: Oral 100 Other: Voiding Method Toilet Toilet Urinal # Voids 1 1 - Exam GENERAL: The patient is alert and oriented x3, not in any acute distress. Stating pain is 10 out of 10 and severe with no relief from Dilaudid HEENT: Pupils are round and equally reacting to light. EOMI. No scleral icterus. mild conjunctival pallor. CARDIOVASCULAR: S1 and S2 present. Tachycardia PULMONARY: Chest is clear to auscultation, no wheezing or crackles. ABDOMEN: Soft, nontender, nondistended, normoactive bowel sounds. No palpable organomegaly. MUSCULOSKELETAL: Extreme back discomfort and tenderness in the L-spine noted on palpation EXTREMITIES: No cyanosis, clubbing. No pedal edema NEUROLOGICAL: Gross neurological examination did not reveal any focal deficits. SKIN: No rashes. - Labs CBC & Chem 7: 07/26/20 23:47 07/26/20 23:47 Labs: Abnormal Lab Results - Last 24 Hours (Table) 07/26/20 07/26/20 Range/Units 23:47 23:47 Eosinophils # 0.9 H (0-0.7) k/uL Sodium 135 L (137-145) mmol/L BUN 8 L (9-20) mg/dL Glucose 123 H (74-99) mg/dL ALT 91 H (4-49) U/L Assessment and Plan Assessment: Intractable back pain due to metastatic lesions Metastatic lung cancer History of brain mets and status post radiation. Marijuana use on daily basis DVT prophylaxis. PLAN: Patient was admitted for intractable back pain due to metastatic lung cancer. We will start him on pain medication in the form of IV Dilaudid 2 mg every 3 hours. Patient is also receiving a fentanyl patch and was seen and ev aluated by pain management and will undergo epidural injections in the morning. Labs from yesterday morning within normal limits with a hemoglobin of 13.4, white blood count is 7.6, sodium is 135, potassium 4.2, current creatinine is 0.67. ALT slightly elevated at 91 and AST is normal at 57. Patient was also seen and evaluated by Dr. Willoughby recommending conservative management and no surgical intervention at this time. Psychiatry consulted and pending at this time. Protonix for GI prophylaxis and Lovenox for DVT prophylaxis. The treatment plan was discussed in detail with the patient and at the bedside. Orthopedics and pain management following. Will continue to monitor closely. Further recommendations to follow depending on the progress of the patient.
[2020-07-27] MEDS: LORazepam 1 MG TAB PO PRN (17:24)
[2020-07-27] MEDS: PREGABALIN 50 MG CAP PO SCH (20:09)
[2020-07-27] MEDS: DULoxetine HCL 30 MG CAPSULE.DR PO SCH (20:09)
[2020-07-28] MEDS ORDERED: ONDANSETRON 4 MG/2 ML VIAL ONE (04:52)
[2020-07-28] MEDS: KETOROLAC 15 MG/ML 1 ML VIAL IVP SCH ×4 (06:06→23:51)
[2020-07-28] MEDS: HYDROmorphone 1 MG/ML 1 ML SYRINGE IVP PRN ×5 (09:02→22:25)
[2020-07-28] MEDS ORDERED: ONDANSETRON 4 MG/2 ML VIAL IVP PRN (09:16)
[2020-07-28] MEDS: LORazepam 1 MG TAB PO PRN ×2 (09:27→21:48)
[2020-07-28] MEDS: oxyCODONE-APAP 10-325MG 1 EACH TAB PO PRN ×2 (09:50→19:35)
[2020-07-28] MEDS: DULoxetine HCL 30 MG CAPSULE.DR PO SCH ×2 (12:53→21:48)
[2020-07-28] MEDS: ENOXAPARIN 40 MG/0.4 ML SYRINGE SQ SCH (12:53)
[2020-07-28] MEDS: SENNOSIDES-DOCUSATE SODIUM 1 EACH TAB PO SCH ×2 (12:54→21:48)
[2020-07-28] MEDS: PREGABALIN 50 MG CAP PO SCH ×2 (12:54→21:48)
[2020-07-28] MEDS ORDERED: LACTATED RINGERS 1,000 ML IV ONE (13:07)
[2020-07-28] MEDS ORDERED: TRIAMCINOLONE ACETONIDE 40 MG/ML 1 ML VIAL ONE (13:30)
[2020-07-28] MEDS ORDERED: ROPIVACAINE 5MG/ML 20ML VIAL ONE (13:30)
[2020-07-28] MEDS ORDERED: IOPAMIDOL M200 10 ML VIAL ONE (13:30)
[2020-07-28] MEDS ORDERED: fentaNYL (PF) 50 MCG/ML 2 ML AMP ONE (13:30)
[2020-07-28] MEDS ORDERED: MIDAZOLAM 2 MG/2 ML VIAL ONE (13:30)
--- NOTE | 2020-07-28 13:51 | P.PCN ---
Date of Procedure: 07/28/20 Surgeon: Moni Sanches Pathology: none sent Condition: stable Disposition: PACU Description of Procedure: PREOPERATIVE DIAGNOSIS: Lumber Degenerative Disc Diseases. 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 Lumbar epidural steroid injection under fluoroscopic guidance at the L4-5 level. 2. Lumbar epidurogram. ANESTHESIA: Local with 1% lidocaine; and IV moderate conscious sedation by the anesthesia Department EBL: Minimal PROCEDURE INDICATION: The patient has a history of lung carcinoma with metastasis to the spine and severe lower back pain and left hip pain. PROCEDURE DESCRIPTION / TECHNIQUE: The patient was seen and identified in the preoperative area. Risks, benefits, complications including but not limited to infections ,bleeding ,allergic reaction to the medications ,nerve damage and not complete pain relief , and alternatives were discussed with the patient. The patient agreed to proceed with the procedure and signed the consent. IV was started, and vital signs were stable. Patient was taken to the OR and time out was completed. The patient was placed in the prone position on procedure table and a pillow was placed under the abdomen to reduce lumbar lordosis. The lumbosacral area was prepped and draped in the usual sterile fashion with ChloraPrep.Patient was closely monitored during the procedure. Conscious sedation was used during the procedure to decrease patients anxiety. Vital signs were monitered during the entire procedure. Using anterior-posterior fluoroscopy, the L4-5 interlaminar space was identified and the skin over this site was marked and then infiltrated with 1% lidocaine subcutaneously. Subsequently, a 20-gauge Tuohy epidural needle was inserted and advanced toward the epidural space using the Loss of resistance to air technique and guided by AP and lateral fluoroscopy. The correct needle position in the epidural space was verified with the injection of 1 mL of the water soluble contrast dye Omnipaque 180 contrast and observing an excellent epidur ogram with the epidural spread of the dye, after negative aspiration for blood and CSF and in the absence of paresthesias. Again after negative aspiration, a 8 ml mixture containing 40 mg of Kenalog and 5 ml of preservative free Normal Saline, and 2 ml of preservative free ropivacaine 0.5% solution was injected and a washout of epidurogram was seen. Needle was withdrawn intact, skin was cleansed, and bandages were applied. patient tolerated procedure well and was transferred to PACU in stable condition.A copy of the needle placement picture was saved to the fluoroscopy machine. I then turned my attention to doing the sacroiliac joint injection on the left side Preoperative diagnoses= sacroiliac joint dysfunction and sacroiliitis on the left side Postoperative diagnoses= same as preoperative diagnosis. Procedure= sacroiliac joint steroid injection under fluoroscopic guidance. Anesthesia= local anesthesia with lidocaine 1% and IV moderate conscious sedation with fentanyl and Versed Estimated blood loss=minimal. Procedure indication= the patient had a history of severe chronic low back pain, diagnosed with sacroiliitis and lumbar sacral facet arthropathy unresponsive to conservative treatment. Procedure description= the patient was seen and identified in the preoperative holding area, risks and benefits and alternative of the procedure and possible complications discussed with the patient, patient signed the consent. an IV was started, and vital signs were monitored and were stable throughout the procedure, patient was placed in the prone position or table and the lumbosacral area was prepped and draped with a sterile fashion, vital signs were closely monitored during the procedure.The sacroiliac joint was identified on the AP view of fluoroscopy then the C-arm was tilted to the contralateral oblique position to superimpose the anterior and posterior joint lines on each other and to have a unified joint line with the target point at the inferior one third of this line. I used 22-gauge 3-1/2 inch Quincke spinal needle for this procedure and after getting into the sacroiliac joint I injected 40 mg of Kenalog +2 MLS of Ropivacaine 0.5%. Patient tolerated the procedure well without any complication, The patient returned to supine position after the back was cleaned and a Band- Aid applied, the patient transported to recovery room in stable condition and he was monitored for 30 minutes before she was discharged home in stable condition . patient will follow up with the pain clinic in a few weeks. A copy of the needle placement was saved to the C-arm machine. COMPLICATIONS: None
--- NOTE | 2020-07-28 14:03 | P.PN ---
Progress Note - Text Progress Note Date: 07/28/20 Interval History: Patient was seen resting in bed. The patient at this time does not report any suicidal or homicidal ideation, intention, and/or plan. He is not reporting any auditory or visual hallucinations. He is not reporting any paranoia or other delusions. Patient has decided to undergo the procedure for the epidural. He reports he has been fasting to receive general anesthesia. He is not reporting any significant side effects of his cymbalta. He reports significant pain as his pain medication was held due to somnolence. MENTAL STATUS EXAM: General Appearance: Patient appears to be stated age is alert, pleasant, and cooperative. Patient appears to have fair hygiene and grooming wearing hospital gown with fair eye contact. Behavior: Patient is calmly lying in bed without any agitated behavior. Psychomotor activity slightly elevated. Patient moves constantly in bed for r elief for his back pain. Speech: Patient's speech is fluent and nonpressured. Mood/Affect: Patient reports their mood is "in pain", affect is congruent and malaised. Suicidality/Homicidality: Patient denies having any suicidal or homicidal ideation intent or plan. Perceptions: Patient denies any visual hallucinations and denies any auditory hallucinations Though content/process: There is no evidence of any delusional thought content and thought process is linear and goal-directed. Memory and concentration: AOX3, grossly intact for the purposes of this session. 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 PLAN: -At this time patient DOES NOT meet criteria for inpatient psychiatric admission. -Would recommend the following medication changes/additions: Continue Cymbalta 30 mg by mouth twice a day for depression/neuropathic pain -Will continue to follow. Re-evaluate on Friday. -Once medically stable, patient is cleared psychiatrically for discharge.
--- NOTE | 2020-07-28 14:16 | P.PN ---
Subjective Progress Note Date: 07/28/20 Mr. Weathers is a 49-year-old male with a past medical history of metastatic lung cancer with mets to brain and spine coming in the hospital with a chief complaint of acute on chronic low back pain. Patient has a known history of left lung cancer with lobectomy in October 2018, metastatic lesions to the brain and spine status post radiation therapy. Patient's mother, and therapy dog at the bedside. Patient states that he has been pain and continues to be morning in pain. He states that he took his pain medication at home but they have not been helping him. He takes Percocet, fentanyl patch at home to help him with pain. Other than pain patient states he does not have any other complaints.He denies having any loss of control of his bowel or bladder. No weakness of his extremities. Patient denies having any fevers chills or rigors. No cough or difficulty in breathing. No chest pain or palpitations. No abdominal pain nausea vomiting or diarrhea. No dysuria or hematuria. Denies having any swelling of his lower extremities. In the ER patient was given 3 doses of Dilaudid and a dose of Toradol and admitted for further management. Orthopedics and pain management services have been consulted as well. 07/27/2020 Patient is seen and evaluated and follow-up and continues to be in 10 out of 10 pain in his lower back and states the Dilaudid is not helping. Multiple medical consultations including oncology, Dr. Willoughby, and pain management following an patient will undergo epidural injection in the morning with Dr. Dubois. Will consult psychiatry for continued depression. Patient denies any thoughts of suicide or wanting to harm himself or others. at the bedside. Patient states he is unable to get up out of the bed due to severe pain and has been laying in the bed. Patient is tolerating diet with no reports of nausea or vomiting noted. 07/28/2020 Patient is seen and evaluated and continues to be in extreme back pain with generalized weakness and stating he has been able to get up out of the bed. Patient is scheduled to undergo epidural injection today with Dr. Dubois and Lovenox is currently on hold. Okay to resume once done with epidural injection. Patient was seen and evaluated by psychiatry and has been started on Cymbalta and will continue to monitor. Vital signs are stable. Patient reports to having some nausea and Zofran was ordered. Patient to continue with TLSO brace when out of bed and encourage the patient to increase activity as tolerated. Review of systems: Constitutional: No reports of fatigue, fever, or chills, reports continued severe back pain Cardiovascular: No reports of chest pain or palpitations Respiratory: No reports of shortness of breath or cough GI: reports intermittent nausea, denies vomiting, or diarrhea : No reports of dysuria or retention Neurovascular: reports generalized weakness All medications have been reviewed Active Medications Albuterol Sulfate (Albuterol Nebulized 2.5 Mg/3 Ml) 2.5 mg INHALATION RT-QID PRN PRN Reason: Shortness Of Breath Duloxetine HCl (Duloxetine Hcl 30 Mg Capsule.Dr) 30 mg PO BID [facility] Last Admin: 07/28/20 12:53 Dose: Not Given Documented by: Enoxaparin Sodium (Enoxaparin 40 Mg/0.4 Ml Syringe) 40 mg SQ DAILY [facility] Last Admin: 07/28/20 12:53 Dose: Not Given Documented by: Fentanyl (Fentanyl 75mcg/Hr Patch) 1 patch TRANSDERM Q72H [facility]; Protocol Last Admin: 07/26/20 23:08 Dose: Not Given Documented by: Folic Acid (Folic Acid 1 Mg Tab) 1 mg PO DAILY [facility] Last Admin: 07/27/20 08:29 Dose: 1 mg Documented by: Hydromorphone HCl (Hydromorphone 1 Mg/Ml 1 Ml Syringe) 2 mg IVP Q3HR PRN PRN Reason: Pain Last Admin: 07/28/20 12:27 Dose: 2 mg Documented by: Ketorolac Tromethamine (Ketorolac 15 Mg/Ml 1 Ml Vial) 15 mg IVP Q6HR [facility] Stop: 07/29/20 13:40 Last Admin: 07/28/20 11:01 Dose: 15 mg Documented by: Lorazepam (Lorazepam 1 Mg Tab) 0.5 mg PO TID PRN PRN Reason: Breakthrough Pain Last Admin: 07/28/20 09:27 Dose: 0.5 mg Documented by: Multivitamins (Multivitamins, Thera 1 Each Tab) 1 each PO DAILY [facility] Last Admin: 07/27/20 08:30 Dose: 1 each Documented by: Ondansetron HCl (Ondansetron 4 Mg/2 Ml Vial) 4 mg IVP Q6HR PRN PRN Reason: Nausea And Vomiting Last Admin: 07/28/20 09:27 Dose: 4 mg Documented by: Oxycodone HCl (Oxycodone Hcl 5 Mg Tab) 15 mg PO Q4HR PRN PRN Reason: Pain Last Admin: 07/27/20 19:23 Dose: 15 mg Documented by: Oxycodone/Acetaminophen (Oxycodone-Apap 10-325mg 1 Each Tab) 1 each PO Q6H PRN PRN Reason: Pain Last Admin: 07/28/20 09:50 Dose: 1 each Documented by: Pantoprazole Sodium (Pantoprazole 40 Mg Tablet) 40 mg PO DAILY [facility] Last Admin: 07/27/20 08:30 Dose: 40 mg Documented by: Polyethylene Glycol (Polyethylene Glycol 3350 17 Gm Powd.Pack) 17 gm PO DAILY [facility] Pregabalin (Pregabalin 50 Mg Cap) 50 mg PO BID [facility] Last Admin: 07/28/20 12:54 Dose: Not Given Documented by: Senna/Docusate Sodium (Sennosides-Docusate Sodium 1 Each Tab) 2 each PO BID [facility] Last Admin: 07/28/20 12:54 Dose: Not Given Documented by: Objective - Vital Signs Vital signs: Vital Signs Temp 98.2 F 07/28/20 05:00 Pulse 75 07/28/20 05:00 Resp 18 07/28/20 05:00 BP 121/70 07/28/20 05:00 Pulse Ox 97 07/28/20 05:00 Intake & Output 07/27/20 07/28/20 07/28/20 18:59 06:59 18:59 Intake Total 4250 800 Balance 4250 800 Intake: Oral 4250 800 Other: Voiding Method Toilet Toilet # Voids 5 2 - Exam GENERAL: The patient is alert and oriented x3, not in any acute distress. Stating pain is 10 out of 10 and severe with no relief from Dilaudid. Awaiting epidural injection this morning HEENT: Pupils are round and equally reacting to light. EOMI. No scleral icterus. mild conjunctival pallor. CARDIOVASCULAR: S1 and S2 present. Tachycardia PULMONARY: Chest is clear to auscultation, no wheezing or crackles. ABDOMEN: Soft, nontender, nondistended, normoactive bowel sounds. No palpable organomegaly. MUSCULOSKELETAL: Extreme back discomfort and tenderness in the L-spine noted on palpation EXTREMITIES: No cyanosis, clubbing. No pedal edema NEUROLOGICAL: Gross neurological examination did not reveal any focal deficits. SKIN: No rashes. - Labs CBC & Chem 7: 07/26/20 23:47 07/26/20 23:47 Assessment and Plan Assessment: Intractable back pain due to metastatic lesions Metastatic lung cancer History of brain mets and status post radiation. Marijuana use on daily basis DVT prophylaxis. PLAN: Patient was admitted for intractable back pain due to metastatic lung cancer. To continue pain medication in the form of IV Dilaudid 2 mg every 3 hours. Patient is also receiving a fentanyl patch and was seen and evaluated by pain management and will undergo epidural injections today. No new labs today and will repeat a.m. labs. Encourage the patient to continue to increase activity as tolerated and wear the TLSO brace while out of bed .Psychiatry following and patient has been started on Cymbalta . Protonix for GI prophylaxis and Lovenox for DVT prophylaxis. Okay to resume Lovenox tomorrow after epidural injections. Orthopedics and pain management following along with oncology and psychiatry. Will continue to monitor closely. Further recommendations to follow depending on the progress of the patient.
[2020-07-28] MEDS: FOLIC ACID 1 MG TAB PO SCH (14:27)
[2020-07-28] MEDS: MULTIVITAMINS, THERA 1 EACH TAB PO SCH (14:27)
[2020-07-28] MEDS: polyethylene glycoL 3350 17 GM POWD.PACK PO SCH (14:28)
[2020-07-28] MEDS: PANTOPRAZOLE 40 MG TABLET PO SCH (14:28)
--- NOTE | 2020-07-28 14:32 | P.PN ---
Subjective Progress Note Date: 07/28/20 Principal diagnosis: Metastatic Cancer Pain Status post epidural with pain services today. He has been receiving increased fentanyl and oxycodone, as well as for severe pain dilaudid. Objective - Vital Signs Vital signs: Vital Signs Temp 96.4 F L 07/28/20 14:08 Pulse 78 07/28/20 14:08 Resp 16 07/28/20 14:08 BP 137/88 07/28/20 14:08 Pulse Ox 97 07/28/20 14:08 Intake & Output 07/27/20 07/28/20 07/28/20 18:59 06:59 18:59 Intake Total 4250 800 50 Balance 4250 800 50 Intake: IV 50 Oral 4250 800 Other: Voiding Method Toilet Toilet # Voids 5 2 - Exam Constitutional General appearance: cooperative, no acute distress - EENT Eyes: EOMI, PERRLA ENT: NA/AT, normal oropharynx - Neck Neck: normal ROM - Respiratory Respiratory: bilateral: diminished (lower) - Cardiovascular Rhythm: regular Heart sounds: normal: S1, S2 - Gastrointestinal General gastrointestinal: soft - Integumentary Integumentary: pale - Neurologic Neurologic: CNII-XII intact - Musculoskeletal Musculoskeletal: generalized weakness, right sided weakness - Psychiatric Depressed and anxious Psychiatric: A&O x's 3, appropriate affect - Labs CBC & Chem 7: 07/26/20 23:47 07/26/20 23:47 Assessment and Plan Plan: Assessment and Recommendations: Neoplastic related pain/Spasms: - Muscle relaxer ATC and increase short acting to 15mg oxy. - Fentanyl to continue - Status [post epidural for neoplastic related pain. Metastatic Non-Small Cell Lung Cancer: - Status POst cycle 3 of Opdisushil and ashrvrea Pain management following for option of epidural.
--- NOTE | 2020-07-28 15:55 | FL ---
Fluoroscopy HISTORY: Pain 15 seconds fluoroscopy time supplied to the referring clinician. 3 intraoperative C-arm images docum ent the procedure. See dictated report from anesthesia.
[2020-07-29] MEDS: oxyCODONE-APAP 10-325MG 1 EACH TAB PO PRN ×4 (01:27→20:35)
[2020-07-29] MEDS: HYDROmorphone 1 MG/ML 1 ML SYRINGE IVP PRN ×7 (01:27→20:35)
[2020-07-29] MEDS: KETOROLAC 15 MG/ML 1 ML VIAL IVP SCH ×2 (06:08→11:54)
[2020-07-29] MEDS: PANTOPRAZOLE 40 MG TABLET PO SCH (07:42)
[2020-07-29] MEDS: LORazepam 1 MG TAB PO PRN ×2 (07:43→14:59)
[2020-07-29] MEDS: DULoxetine HCL 30 MG CAPSULE.DR PO SCH ×2 (07:43→20:35)
[2020-07-29] MEDS: MULTIVITAMINS, THERA 1 EACH TAB PO SCH (07:43)
[2020-07-29] MEDS: ENOXAPARIN 40 MG/0.4 ML SYRINGE SQ SCH (07:45)
[2020-07-29] MEDS: polyethylene glycoL 3350 17 GM POWD.PACK PO SCH (07:45)
[2020-07-29] MEDS: FOLIC ACID 1 MG TAB PO SCH (07:49)
[2020-07-29] MEDS: PREGABALIN 50 MG CAP PO SCH ×2 (07:49→20:34)
[2020-07-29] MEDS: SENNOSIDES-DOCUSATE SODIUM 1 EACH TAB PO SCH ×2 (07:50→20:34)
[2020-07-29 08:59] LABS: Basophils # (A) 0.02 X 10*3/uL (0.00-0.10); Basophils % (A) 0.2 %; Eosinophils # (A) 0.02 X 10*3/uL (0.04-0.35); Eosinophils % (A) 0.2 %; HGB 12.9 g/dL (13.0-17.0); Lymphocytes # (A) 0.92 X 10*3/uL (0.90-5.00); Lymphocytes % (A) 11.3 %; MCH 29.9 pg (27.0-32.0); MCHC 33.1 g/dL (32.0-37.0); MCV 90.3 fL (80.0-97.0); Mean Platelet Volume 11.4 fL (9.5-12.2); Monocytes # (A) 0.62 X 10*3/uL (0.20-1.00); Monocytes % (A) 7.6 %; Neutrophils # (A) 6.52 X 10*3/uL (1.80-7.70); Neutrophils % (A) 80.3 %; Platelet Count 269 X 10*3/uL (140-440); RBC 4.32 X 10*6/uL (4.40-5.60); RDW 12.5 % (11.5-14.5); WBC 8.13 X 10*3/uL (4.50-10.00)
[2020-07-29 09:15] LABS: African American GFR (CKD) 120.7 (60.0-200.0); Anion Gap 7.1 mmol/L (4.00-12.00); BUN/Creat Ratio 13.75 Ratio (12.00-20.00); Calcium 9.1 mg/dL (8.7-10.3); Carbon Dioxide 27.9 mmol/L (21.6-31.8); Non-African American GFR(CKD) 104.2 (60.0-200.0); Potassium 4.9 mmol/L (3.5-5.5)
[2020-07-30] MEDS: HYDROmorphone 1 MG/ML 1 ML SYRINGE IVP PRN ×8 (00:01→23:05)
--- NOTE | 2020-07-30 01:16 | P.PN ---
Subjective Progress Note Date: 07/29/20 Mr. Weathers is a 49-year-old male with a past medical history of metastatic lung cancer with mets to brain and spine coming in the hospital with a chief complaint of acute on chronic low back pain. Patient has a known history of left lung cancer with lobectomy in October 2018, metastatic lesions to the brain and spine status post radiation therapy. Patient's mother, and therapy dog at the bedside. Patient states that he has been pain and continues to be morning in pain. He states that he took his pain medication at home but they have not been helping him. He takes Percocet, fentanyl patch at home to help him with pain. Other than pain patient states he does not have any other complaints.He denies having any loss of control of his bowel or bladder. No weakness of his extremities. Patient denies having any fevers chills or rigors. No cough or difficulty in breathing. No chest pain or palpitations. No abdominal pain nausea vomiting or diarrhea. No dysuria or hematuria. Denies having any swelling of his lower extremities.In the ER patient was given 3 doses of Dilaudid and a dose of Toradol and admitted for further management. Orthopedics and pain management services have been consulted as well. 07/27/2020 Patient is seen and evaluated and follow-up and continues to be in 10 out of 10 pain in his lower back and states the Dilaudid is not helping. Multiple medical consultations including oncology, Dr. Willoughby, and pain management following an patient will undergo epidural injection in the morning with Dr. Dubois. Will consult psychiatry for continued depression. Patient denies any thoughts of suicide or wanting to harm himself or others. at the bedside. Patient states he is unable to get up out of the bed due to severe pain and has been laying in the bed. Patient is tolerating diet with no reports of nausea or vomiting noted. 07/28/2020 Patient is seen and evaluated and continues to be in extreme back pain with generalized weakness and stating he has been able to get up out of the bed. Patient is scheduled to undergo epidural injection today with Dr. Dubois and Lovenox is currently on hold. Okay to resume once done with epidural injection. Patient was seen and evaluated by psychiatry and has been started on Cymbalta and will continue to monitor. Vital signs are stable. Patient reports to having some nausea and Zofran was ordered. Patient to continue with TLSO brace when out of bed and encourage the patient to increase activity as tolerated. On 07/29/2020-patient was seen and evaluated at the bedside. He states that his epidural shot helped him with his back pain. He is resting comfortably in bed with his mother and therapy dog at bedside. He denies having any chest pain or palpitations. No abdominal pain nausea vomiting or diarrhea. No dysuria or hematuria. No cough or difficulty in breathing. Vitals have been stable. Active Medications Albuterol Sulfate (Albuterol Nebulized 2.5 Mg/3 Ml) 2.5 mg INHALATION RT-QID PRN PRN Reason: Shortness Of Breath Duloxetine HCl (Duloxetine Hcl 30 Mg Capsule.Dr) 30 mg PO BID [facility] Last Admin: 07/29/20 20:35 Dose: 30 mg Documented by: Enoxaparin Sodium (Enoxaparin 40 Mg/0.4 Ml Syringe) 40 mg SQ DAILY [facility] Last Admin: 07/29/20 07:45 Dose: Not Given Documented by: Fentanyl (Fentanyl 75mcg/Hr Patch) 1 patch TRANSDERM Q72H [facility]; Protocol Last Admin: 07/29/20 23:31 Dose: 1 patch Documented by: Folic Acid (Folic Acid 1 Mg Tab) 1 mg PO DAILY [facility] Last Admin: 07/29/20 07:49 Dose: 1 mg Documented by: Hydromorphone HCl (Hydromorphone 1 Mg/Ml 1 Ml Syringe) 2 mg IVP Q3HR PRN PRN Reason: Pain Last Admin: 07/30/20 00:01 Dose: 2 mg Documented by: Lorazepam (Lorazepam 1 Mg Tab) 0.5 mg PO TID PRN PRN Reason: Breakthrough Pain Last Admin: 07/29/20 14:59 Dose: 0.5 mg Documented by: Multivitamins (Multivitamins, Thera 1 Each Tab) 1 each PO DAILY [facility] Last Admin: 07/29/20 07:43 Dose: 1 each Documented by: Ondansetron HCl (Ondansetron 4 Mg/2 Ml Vial) 4 mg IVP Q6HR PRN PRN Reason: Nausea And Vomiting Last Admin: 07/28/20 09:27 Dose: 4 mg Documented by: Oxycodone HCl (Oxycodone Hcl 5 Mg Tab) 15 mg PO Q4HR PRN PRN Reason: Pain Last Admin: 07/29/20 23:32 Dose: 15 mg Documented by: Oxycodone/Acetaminophen (Oxycodone-Apap 10-325mg 1 Each Tab) 1 each PO Q6H PRN PRN Reason: Pain Last Admin: 07/29/20 20:35 Dose: 1 each Documented by: Pantoprazole Sodium (Pantoprazole 40 Mg Tablet) 40 mg PO DAILY [facility] Last Admin: 07/29/20 07:42 Dose: 40 mg Documented by: Polyethylene Glycol (Polyethylene Glycol 3350 17 Gm Powd.Pack) 17 gm PO DAILY [facility] Last Admin: 07/29/20 07:45 Dose: 17 gm Documented by: Pregabalin (Pregabalin 50 Mg Cap) 50 mg PO BID [facility] Last Admin: 07/29/20 20:34 Dose: 50 mg Documented by: Senna/Docusate Sodium (Sennosides-Docusate Sodium 1 Each Tab) 2 each PO BID [facility] Last Admin: 07/29/20 20:34 Dose: 2 each Documented by: Objective - Vital Signs Vital signs: Vital Signs Temp 97.6 F 07/29/20 04:04 Pulse 60 07/29/20 04:04 Resp 16 07/29/20 04:04 BP 152/85 07/29/20 04:04 Pulse Ox 91 L 07/29/20 04:04 Intake & Output 07/28/20 07/29/20 07/29/20 18:59 06:59 18:59 Intake Total 210 840 Balance 210 840 Intake: IV 50 Oral 160 840 Other: # Voids 3 2 - Exam GENERAL: The patient is alert and oriented x3, not in any acute distress. HEENT: Pupils are round and equally reacting to light. EOMI. No scleral icterus. mild conjunctival pallor. CARDIOVASCULAR: S1 and S2 present. PULMONARY: Chest is clear to auscultation, no wheezing or crackles. ABDOMEN: Soft, nontender, nondistended, normoactive bowel sounds. No palpable organomegaly. MUSCULOSKELETAL: Lying on his back, deferred EXTREMITIES: No cyanosis, clubbing. No pedal edema NEUROLOGICAL: Gross neurological examination did not reveal any focal deficits. SKIN: No rashes. - Labs CBC & Chem 7: 07/29/20 06:04 07/29/20 06:04 Labs: Abnormal Lab Results - Last 24 Hours (Table) 07/29/20 07/29/20 Range/Units 06:04 06:04 RBC 4.32 L (4.40-5.60) X 10*6/uL Hgb 12.9 L (13.0-17.0) g/dL Hct 39.0 L (39.6-50.0) % Eosinophils # 0.02 L (0.04-0.35) X 10*3/uL Sodium 133 L (135-145) mmol/L Glucose 146 H (70-110) mg/dL ALT 72 H (10-49) U/L Assessment and Plan Assessment: ASSESSMENT Intractable back pain due to metastatic lesions Metastatic lung cancer History of brain mets and status post radiation. Marijuana use on daily basis DVT prophylaxis. PLAN: Patient was admitted for intractable back pain due to metastatic lung cancer. To continue pain medication in the form of IV Dilaudid 2 mg every 3 hours. Patient is also receiving a fentanyl patch and was seen and evaluated by pain management and had epidural injections yeserday. Encourage the patient to continue to increase activity as tolerated and wear the TLSO brace while out of bed .Psychiatry following and patient has been started on Cymbalta . Protonix for GI prophylaxis and Lovenox for DVT prophylaxis. Okay to resume Lovenox today . Orthopedics and pain management following along with oncology and psychiatry. Will continue to monitor closely. Further recommendations to follow depending on the progress of the patient. Anticipate discharge in 24 hrs.
[2020-07-30] MEDS: oxyCODONE-APAP 10-325MG 1 EACH TAB PO PRN ×3 (02:20→15:00)
[2020-07-30] MEDS: LORazepam 1 MG TAB PO PRN ×2 (08:36→12:16)
[2020-07-30] MEDS: SENNOSIDES-DOCUSATE SODIUM 1 EACH TAB PO SCH ×2 (08:38→20:38)
[2020-07-30] MEDS: MULTIVITAMINS, THERA 1 EACH TAB PO SCH (08:39)
[2020-07-30] MEDS: PREGABALIN 50 MG CAP PO SCH ×2 (08:39→20:37)
[2020-07-30] MEDS: PANTOPRAZOLE 40 MG TABLET PO SCH (08:39)
[2020-07-30] MEDS: FOLIC ACID 1 MG TAB PO SCH (08:39)
[2020-07-30] MEDS: DULoxetine HCL 30 MG CAPSULE.DR PO SCH ×2 (08:39→20:37)
[2020-07-30] MEDS: ENOXAPARIN 40 MG/0.4 ML SYRINGE SQ SCH (09:26)
[2020-07-30] MEDS: polyethylene glycoL 3350 17 GM POWD.PACK PO SCH (09:26)
[2020-07-30] MEDS: hydrALAZINE HCL 10 MG TAB PO PRN ×3 (12:17→20:37)
--- NOTE | 2020-07-30 17:05 | P.PN ---
Subjective Progress Note Date: 07/30/20 Principal diagnosis: Intractable back pain due to metastatic lesions Mr. Weathers is a 49-year-old male with a past medical history of metastatic lung cancer with mets to brain and spine coming in the hospital with a chief complaint of acute on chronic low back pain. Patient has a known history of left lung cancer with lobectomy in October 2018, metastatic lesions to the brain and spine status post radiation therapy. Patient's mother, and therapy dog at the bedside. Patient states that he has been pain and continues to be morning in pain. He states that he took his pain medication at home but they have not been helping him. He takes Percocet, fentanyl patch at home to help him with pain. Other than pain patient states he does not have any other complaints.He denies having any loss of control of his bowel or bladder. No weakness of his extremities. Patient denies having any fevers chills or rigors. No cough or difficulty in breathing. No chest pain or palpitations. No abdominal pain nausea vomiting or diarrhea. No dysuria or hematuria. Denies h aving any swelling of his lower extremities.In the ER patient was given 3 doses of Dilaudid and a dose of Toradol and admitted for further management. Orthopedics and pain management services have been consulted as well. 07/27/2020 Patient is seen and evaluated and follow-up and continues to be in 10 out of 10 pain in his lower back and states the Dilaudid is not helping. Multiple medical consultations including oncology, Dr. Willoughby, and pain management following an patient will undergo epidural injection in the morning with Dr. Dubois. Will consult psychiatry for continued depression. Patient denies any thoughts of suicide or wanting to harm himself or others. at the bedside. Patient states he is unable to get up out of the bed due to severe pain and has been laying in the bed. Patient is tolerating diet with no reports of nausea or vomiting noted. 07/28/2020 Patient is seen and evaluated and continues to be in extreme back pain with generalized weakness and stating he has been able to get up out of the bed. Patient is scheduled to undergo epidural injection today with Dr. Dubois and Lovenox is currently on hold. Okay to resume once done with epidural injection. Patient was seen and evaluated by psychiatry and has been started on Cymbalta and will continue to monitor. Vital signs are stable. Patient reports to having some nausea and Zofran was ordered. Patient to continue with TLSO brace when out of bed and encourage the patient to increase activity as tolerated. On 07/29/2020-patient was seen and evaluated at the bedside. He states that his epidural shot helped him with his back pain. He is resting comfortably in bed with his mother and therapy dog at bedside. He denies having any chest pain or palpitations. No abdominal pain nausea vomiting or diarrhea. No dysuria or hematuria. No cough or difficulty in breathing. Vitals have been stable. On 07/30/2020 -patient is seen and evaluated at bedside. He has no therapy dog at bedside. Patient still complains of ongoing low back pain, states that the epidural steroid injection is helping him only to some extent. Patient denies having any chest pain or palpitations. No cough or difficulty breathing. No abdominal pain nausea vomiting or diarrhea. No dysuria or hematuria. On reviewing the vitals temperature 98.2, heart rate 90, respiratory 16, blood pressure 196-93, saturating at 93% on room air. No new labs from this morning. Active Medications Albuterol Sulfate (Albuterol Nebulized 2.5 Mg/3 Ml) 2.5 mg INHALATION RT-QID PRN PRN Reason: Shortness Of Breath Duloxetine HCl (Duloxetine Hcl 30 Mg Capsule.Dr) 30 mg PO BID [facility] Last Admin: 07/30/20 08:39 Dose: 30 mg Documented by: Enoxaparin Sodium (Enoxaparin 40 Mg/0.4 Ml Syringe) 40 mg SQ DAILY [facility] Last Admin: 07/30/20 09:26 Dose: Not Given Documented by: Fentanyl (Fentanyl 75mcg/Hr Patch) 1 patch TRANSDERM Q72H [facility]; Protocol Last Admin: 07/29/20 23:31 Dose: 1 patch Documented by: Folic Acid (Folic Acid 1 Mg Tab) 1 mg PO DAILY [facility] Last Admin: 07/30/20 08:39 Dose: 1 mg Documented by: Hydralazine HCl (Hydralazine Hcl 10 Mg Tab) 10 mg PO Q6H PRN PRN Reason: Blood Pressure - High Last Admin: 07/30/20 12:17 Dose: 10 mg Documented by: Hydromorphone HCl (Hydromorphone 1 Mg/Ml 1 Ml Syringe) 2 mg IVP Q3HR PRN PRN Reason: Pain Last Admin: 07/30/20 16:38 Dose: 2 mg Documented by: Lorazepam (Lorazepam 1 Mg Tab) 0.5 mg PO TID PRN PRN Reason: Breakthrough Pain Last Admin: 07/30/20 12:16 Dose: 0.5 mg Documented by: Multivitamins (Multivitamins, Thera 1 Each Tab) 1 each PO DAILY [facility] Last Admin: 07/30/20 08:39 Dose: 1 each Documented by: Ondansetron HCl (Ondansetron 4 Mg/2 Ml Vial) 4 mg IVP Q6HR PRN PRN Reason: Nausea And Vomiting Last Admin: 07/28/20 09:27 Dose: 4 mg Documented by: Oxycodone HCl (Oxycodone Hcl 5 Mg Tab) 15 mg PO Q4HR PRN PRN Reason: Pain Last Admin: 07/30/20 04:20 Dose: 15 mg Documented by: Oxycodone/Acetaminophen (Oxycodone-Apap 10-325mg 1 Each Tab) 1 each PO Q6H PRN PRN Reason: Pain Last Admin: 07/30/20 15:00 Dose: 1 each Documented by: Pantoprazole Sodium (Pantoprazole 40 Mg Tablet) 40 mg PO DAILY [facility] Last Admin: 07/30/20 08:39 Dose: 40 mg Documented by: Polyethylene Glycol (Polyethylene Glycol 3350 17 Gm Powd.Pack) 17 gm PO DAILY [facility] Last Admin: 07/30/20 09:26 Dose: Not Given Documented by: Pregabalin (Pregabalin 50 Mg Cap) 50 mg PO BID [facility] Last Admin: 07/30/20 08:39 Dose: 50 mg Documented by: Senna/Docusate Sodium (Sennosides-Docusate Sodium 1 Each Tab) 2 each PO BID [facility] Last Admin: 07/30/20 08:38 Dose: Not Given Documented by: Objective - Vital Signs Vital signs: Vital Signs Temp 98.2 F 07/30/20 11:20 Pulse 90 07/30/20 11:20 Resp 16 07/30/20 11:20 BP 196/93 07/30/20 11:20 Pulse Ox 93 L 07/30/20 11:20 Intake & Output 07/29/20 07/30/20 07/30/20 18:59 06:59 18:59 Intake Total 1580 Balance 1580 Intake: Oral 1580 Other: Voiding Method Toilet # Voids 3 - Exam GENERAL: The patient is alert and oriented x3, not in any acute distress. HEENT: Pupils are round and equally reacting to light. EOMI. No scleral icterus. mild conjunctival pallor. CARDIOVASCULAR: S1 and S2 present. PULMONARY: Chest is clear to auscultation, no wheezing or crackles. ABDOMEN: Soft, nontender, nondistended, normoactive bowel sounds. No palpable organomegaly. MUSCULOSKELETAL: Lying on his back, deferred EXTREMITIES: No cyanosis, clubbing. No pedal edema NEUROLOGICAL: Gross neurological examination did not reveal any focal deficits. SKIN: No rashes. - Labs CBC & Chem 7: 07/29/20 06:04 07/29/20 06:04 Assessment and Plan Assessment: ASSESSMENT Intractable back pain due to metastatic lesions Metastatic lung cancer History of brain mets and status post radiation. Marijuana use on daily basis DVT prophylaxis. PLAN: Patient was admitted for intractable back pain due to metastatic lung cancer. To continue pain medication in the form of IV Dilaudid 2 mg every 3 hours. Patient is also receiving a fentanyl patch and was seen and evaluated by pain management and had epidural injection on 07/28/2020. Encourage the patient to continue to increase activity as tolerated and wear the TLSO brace while out of bed .Psychiatry following and patient has been started on Cymbalta . Sasha nix for GI prophylaxis and Lovenox for DVT prophylaxis. Orthopedics and pain management following along with oncology and psychiatry. Patient's blood pressure has been running high could be a component of pain control issues. He has been started on hydralazine 10 mg 3 times a day. Further recommendations to follow depending on the progress of the patient. Anticipate discharge in 24 hrs.
[2020-07-30] MEDS ORDERED: hydrALAZINE HCL 25 MG TAB PO PRN (21:56)
[2020-07-30] MEDS: amLODIPine 5 MG TAB PO SCH (22:46)
[2020-07-30] MEDS: METOPROLOL TARTRATE 12.5 MG TAB PO SCH (22:46)
[2020-07-31] MEDS: HYDROmorphone 1 MG/ML 1 ML SYRINGE IVP PRN ×3 (02:15→09:03)
[2020-07-31] MEDS: MULTIVITAMINS, THERA 1 EACH TAB PO SCH (08:34)
[2020-07-31] MEDS: FOLIC ACID 1 MG TAB PO SCH (08:34)
[2020-07-31] MEDS: PANTOPRAZOLE 40 MG TABLET PO SCH (08:35)
[2020-07-31] MEDS: METOPROLOL TARTRATE 12.5 MG TAB PO SCH ×2 (08:35→21:57)
[2020-07-31] MEDS: amLODIPine 5 MG TAB PO SCH (08:35)
[2020-07-31] MEDS: polyethylene glycoL 3350 17 GM POWD.PACK PO SCH (08:35)
[2020-07-31] MEDS: ENOXAPARIN 40 MG/0.4 ML SYRINGE SQ SCH (08:35)
[2020-07-31] MEDS: PREGABALIN 50 MG CAP PO SCH ×2 (08:35→21:20)
[2020-07-31] MEDS: SENNOSIDES-DOCUSATE SODIUM 1 EACH TAB PO SCH ×2 (08:35→21:57)
[2020-07-31 08:46] LABS: Basophils # (A) 0.04 X 10*3/uL (0.00-0.10); Basophils % (A) 0.4 %; Eosinophils # (A) 0.21 X 10*3/uL (0.04-0.35); Eosinophils % (A) 2.2 %; HCT 40.5 % (39.6-50.0); HGB 13.6 g/dL (13.0-17.0); Lymphocytes # (A) 1.38 X 10*3/uL (0.90-5.00); Lymphocytes % (A) 14.6 %; MCH 30.4 pg (27.0-32.0); MCHC 33.6 g/dL (32.0-37.0); MCV 90.6 fL (80.0-97.0); Mean Platelet Volume 11.3 fL (9.5-12.2); Monocytes # (A) 0.94 X 10*3/uL (0.20-1.00); Neutrophils # (A) 6.81 X 10*3/uL (1.80-7.70); Neutrophils % (A) 72.4 %; Platelet Count 313 X 10*3/uL (140-440); RBC 4.47 X 10*6/uL (4.40-5.60); RDW 12.9 % (11.5-14.5); WBC 9.42 X 10*3/uL (4.50-10.00)
[2020-07-31] MEDS: DULoxetine HCL 30 MG CAPSULE.DR PO SCH ×2 (08:49→21:21)
[2020-07-31 09:19] LABS: African American GFR (CKD) 120.7 (60.0-200.0); Anion Gap 7.6 mmol/L (4.00-12.00); BUN/Creat Ratio 17.5 Ratio (12.00-20.00); Calcium 9.3 mg/dL (8.7-10.3); Carbon Dioxide 29.4 mmol/L (21.6-31.8); Non-African American GFR(CKD) 104.2 (60.0-200.0); Potassium 4.7 mmol/L (3.5-5.5)
[2020-07-31] MEDS: hydrALAZINE HCL 10 MG TAB PO SCH ×3 (10:37→21:22)
[2020-07-31] MEDS: amLODIPine 10 MG TAB PO SCH (11:43)
[2020-07-31] MEDS: oxyCODONE-APAP 10-325MG 1 EACH TAB PO PRN (11:51)
[2020-07-31] MEDS ORDERED: oxyCODONE-APAP 10-325MG 1 EACH TAB PO PRN (12:00)
--- NOTE | 2020-07-31 16:15 | P.PN ---
Subjective Progress Note Date: 07/31/20 Mr. Weathers is a 49-year-old male with a past medical history of metastatic lung cancer with mets to brain and spine coming in the hospital with a chief complaint of acute on chronic low back pain. Patient has a known history of left lung cancer with lobectomy in October 2018, metastatic lesions to the brain and spine status post radiation therapy. Patient's mother, and therapy dog at the bedside. Patient states that he has been pain and continues to be morning in pain. He states that he took his pain medication at home but they have not been helping him. He takes Percocet, fentanyl patch at home to help him with pain. Other than pain patient states he does not have any other complaints.He denies having any loss of control of his bowel or bladder. No weakness of his extremities. Patient denies having any fevers chills or rigors. No cough or difficulty in breathing. No chest pain or palpitations. No abdominal pain nausea vomiting or diarrhea. No dysuria or hematuria. Denies having any swelling of his lower extremities. In the ER patient was given 3 doses of Dilaudid and a dose of Toradol and admitted for further management. Orthopedics and pain management services have been consulted as well. 07/27/2020 Patient is seen and evaluated and follow-up and continues to be in 10 out of 10 pain in his lower back and states the Dilaudid is not helping. Multiple medical consultations including oncology, Dr. Willoughby, and pain management following an patient will undergo epidural injection in the morning with Dr. Dubois. Will consult psychiatry for continued depression. Patient denies any thoughts of suicide or wanting to harm himself or others. at the bedside. Patient states he is unable to get up out of the bed due to severe pain and has been laying in the bed. Patient is tolerating diet with no reports of nausea or vomiting noted. 07/28/2020 Patient is seen and evaluated and continues to be in extreme back pain with generalized weakness and stating he has been able to get up out of the bed. Patient is scheduled to undergo epidural injection today with Dr. Dubois and Lovenox is currently on hold. Okay to resume once done with epidural injection. Patient was seen and evaluated by psychiatry and has been started on Cymbalta and will continue to monitor. Vital signs are stable. Patient reports to having some nausea and Zofran was ordered. Patient to continue with TLSO brace when out of bed and encourage the patient to increase activity as tolerated. On 07/29/2020-patient was seen and evaluated at the bedside. He states that his epidural shot helped him with his back pain. He is resting comfortably in bed with his mother and therapy dog at bedside. He denies having any chest pain or palpitations. No abdominal pain nausea vomiting or diarrhea. No dysuria or hematuria. No cough or difficulty in breathing. Vitals have been stable. On 07/30/2020 -patient is seen and evaluated at bedside. He has no therapy dog at bedside. Patient still complains of ongoing low back pain, states that the epidural steroid injection is helping him only to some extent. Patient denies having any chest pain or palpitations. No cough or difficulty breathing. No abdominal pain nausea vomiting or diarrhea. No dysuria or hematuria. On revie wing the vitals temperature 98.2, heart rate 90, respiratory 16, blood pressure 196-93, saturating at 93% on room air. No new labs from this morning. 07/31/2020 Patient is seen and evaluated and follow-up and continues to state he is in 10/10 pain and upset that his pain medications have been changed. Noted that the patient along with his dog and sleeping upon entering the room and patient is lying flat on his back in no acute distress. Apparently per nursing staff patient has been receiving blood pressure medications although multiple blood pressure pills were found underneath him and he has not been taking them. Patient was instructed and advised on the importance of taking all medications as prescribed. Cardiology following and has made adjustments to his pain medications and instructed the nursing staff to avoid IV narcotics if possible. Patient instructed to increase activity and anticipate discharge tomorrow Review of systems: Constitutional: No reports of fatigue, fever, or chills, reports continued severe back pain Cardiovascular: No reports of chest pain or palpitations Respiratory: No reports of shortness of breath or cough GI: reports intermittent nausea, denies vomiting, or diarrhea : No reports of dysuria or retention Neurovascular: reports generalized weakness All medications have been reviewed Objective - Vital Signs Vital signs: Vital Signs Temp 98.6 F 07/31/20 05:00 Pulse 72 07/31/20 08:00 Resp 18 07/31/20 08:00 BP 177/100 07/31/20 09:01 Pulse Ox 96 07/31/20 05:00 Intake & Output 07/30/20 07/31/20 07/31/20 18:59 06:59 18:59 Intake Total 500 Balance 500 Intake: Oral 500 Other: Voiding Method Toilet Toilet # Voids 2 - Exam GENERAL: The patient is alert and oriented x3, not in any acute distress. Stating pain is 10 out of 10 and severe with no relief HEENT: Pupils are round and equally reacting to light. EOMI. No scleral icterus. mild conjunctival pallor. CARDIOVASCULAR: S1 and S2 present. Tachycardia PULMONARY: Chest is clear to auscultation, no wheezing or crackles. ABDOMEN: Soft, nontender, nondistended, normoactive bowel sounds. No palpable organomegaly. MUSCULOSKELETAL: Extreme back discomfort and tenderness in the L-spine noted on palpation EXTREMITIES: No cyanosis, clubbing. No pedal edema NEUROLOGICAL: Gross neurological examination did not reveal any focal deficits. SKIN: No rashes. - Labs CBC & Chem 7: 07/31/20 05:55 07/31/20 05:55 Labs: Abnormal Lab Results - Last 24 Hours (Table) 07/31/20 Range/Units 05:55 Sodium 133 L (135-145) mmol/L Glucose 191 H (70-110) mg/dL Assessment and Plan Assessment: Intractable back pain due to metastatic lesions Metastatic lung cancer History of brain mets and status post radiation. Marijuana use on daily basis DVT prophylaxis. PLAN: Patient was admitted for intractable back pain due to metastatic lung cancer. To continue pain medication in the form of IV Dilaudid 2 mg every 3 hours. Patient is also receiving a fentanyl patch and was seen and evaluated by pain management and recently underwent epidural injections minimal relief. Enc ourage the patient to continue to increase activity as tolerated and wear the TLSO brace while out of bed . Psychiatry following and patient has been started on Cymbalta . Protonix for GI prophylaxis and Lovenox for DVT prophylaxis. Orthopedics and pain management following along with oncology and psychiatry. Will continue to monitor closely. Patient's blood pressure has been elevated and has been getting medications although apparently per nursing staff multiple blood pressure pills were found underneath him as he has not been taking them. Educated the patient on the importance of taking medications as prescribed. Pain medications have been adjusted and increased per oncology and discussed with nursing staff about avoiding IV narcotics if possible. Anticipate discharge in 24 hours
--- NOTE | 2020-07-31 20:38 | P.PN ---
Subjective Progress Note Date: 07/31/20 Principal diagnosis: Metastatic Cancer Pain Review of MRI Brain 07/24 was stable. Discussed with patient and . Minor enhancement 4.6mm from 4.5mm (patient on immune therapy and pseudo increase maybe seen and this change is considered non-specific), repeat in 6 weeks. As far as his pain he states the epidural has not relieved pain at all, he is still asking for dilaudid 2mg q3 hours. He was also utilizing the oxycodone to max frequency \. We have discussed a plan, increased fentanyl patch, discontinue percocet (does not need percocet and oxycodone), Increased Oxycodone 20mg q3 prn. PLan to decrease IV dilaudid tomorrow. and hoping to have approrpiate dosage of oxyc odone and fenantyl by Friday for potential dicharge. DIscussed with primary team Re-educated on staying compliant with BP meds and bowel regimen Objective - Vital Signs Vital signs: Vital Signs Temp 98.0 F 07/31/20 19:51 Pulse 84 07/31/20 19:51 Resp 16 07/31/20 19:51 BP 146/85 07/31/20 19:51 Pulse Ox 96 07/31/20 19:51 Intake & Output 07/31/20 07/31/20 08/01/20 06:59 18:59 06:59 Intake Total 500 240 Balance 500 240 Intake: Oral 500 240 Other: Voiding Method Toilet Toilet # Voids 2 500 - Exam Constitutional General appearance: cooperative, no acute distress - EENT Eyes: EOMI, PERRLA ENT: NA/AT, normal oropharynx - Neck Neck: normal ROM - Respiratory Respiratory: bilateral: diminished (lower) - Cardiovascular Rhythm: regular Heart sounds: normal: S1, S2 - Gastrointestinal General gastrointestinal: soft - Integumentary Integumentary: pale - Neurologic Neurologic: CNII-XII intact - Musculoskeletal Musculoskeletal: generalized weakness, right sided weakness - Psychiatric Depressed and anxious Psychiatric: A&O x's 3, appropriate affect - Labs CBC & Chem 7: 07/31/20 05:55 07/31/20 05:55 Labs: Abnormal Lab Results - Last 24 Hours (Table) 07/31/20 Range/Units 05:55 Sodium 133 L (135-145) mmol/L Glucose 191 H (70-110) mg/dL Assessment and Plan Plan: Assessment and Recommendations: Neoplastic related pain/Spasms: - Muscle relaxer ATC and increase short acting to 20mg oxy. - Fentanyl to continue - Status [post epidural for neoplastic related pain. Metastatic Non-Small Cell Lung Cancer: - Status POst cycle 3 of Opdivo and yervoy Pain management following for option of epidural. Review of MRI Brain 07/24 was stable. Discussed with patient and . Minor enhancement 4.6mm from 4.5mm (patient on immune therapy and pseudo increase maybe seen and this change is considered non-specific), repeat in 6 weeks. As far as his pain he states the epidural has not relieved pain at all, he is still asking for dilaudid 2mg q3 hours. He was also utilizing the oxycodone to max frequency \. We have discussed a plan, increased fentanyl patch, discontinue percocet (does not need percocet and oxycodone), Increased Oxycodone 20mg q3 prn. PLan to decrease IV dilaudid tomorrow. and hoping to have approrpiate dosage of oxycodo ne and fenantyl by Friday for potential dicharge. DIscussed with primary team Re-educated on staying compliant with BP meds and bowel regimen Incentive spirometer to bedside Increase activity
[2020-08-01] MEDS: polyethylene glycoL 3350 17 GM POWD.PACK PO SCH (09:11)
[2020-08-01] MEDS: PANTOPRAZOLE 40 MG TABLET PO SCH (09:11)
[2020-08-01] MEDS: amLODIPine 10 MG TAB PO SCH (09:11)
[2020-08-01] MEDS: DULoxetine HCL 30 MG CAPSULE.DR PO SCH (09:11)
[2020-08-01] MEDS: hydrALAZINE HCL 10 MG TAB PO SCH (09:11)
[2020-08-01] MEDS: FOLIC ACID 1 MG TAB PO SCH (09:11)
[2020-08-01] MEDS: METOPROLOL TARTRATE 12.5 MG TAB PO SCH (09:11)
[2020-08-01] MEDS: ENOXAPARIN 40 MG/0.4 ML SYRINGE SQ SCH (09:12)
[2020-08-01] MEDS: SENNOSIDES-DOCUSATE SODIUM 1 EACH TAB PO SCH (09:12)
[2020-08-01] MEDS: PREGABALIN 50 MG CAP PO SCH (09:12)
[2020-08-01] MEDS: MULTIVITAMINS, THERA 1 EACH TAB PO SCH (09:12)
[2020-08-01] MEDS ORDERED: HYDROmorphone 1 MG/ML 1 ML SYRINGE IVP PRN (11:25)
[2020-08-01 11:57] VITALS: BP 163/83; PULSE 64; RESP 18; TEMP 99
[2020-08-01 13:06] VITALS: BMI 34.8
--- NOTE | 2020-08-01 14:15 | P.DS ---
Providers Date of admission: 07/26/20 13:39 Attending physician: Rosanna Mccurdy Consults: 07/26/20 13:39 Consult Physician Urgent Consulting Provider: Robert Calhoun Consult Reason/Comments: Metastatic lung cancer to the spine Do you want consulting provider notified?: Yes Consult Physician Urgent Consulting Provider: Reba Willoughby Consult Reason/Comments: Intractable back pain Do you want consulting provider notified?: Yes 07/27/20 12:09 Consult Physician Urgent Consulting Provider: Chaka Reyna Consult Reason/Comments: depression/ cancer/ pain Do you want consulting provider notified?: Yes Primary care physician: [facility] Course: Mr. Weathers is a 49-year-old male with a past medical history of metastatic lung cancer with mets to brain and spine coming in the hospital with a chief complaint of acute on chronic low back pain. Patient has a known history of left lung cancer with lobectomy in October 2018, metastatic lesions to the brain and spine status post radiation therapy. Patient's mother, and therapy dog at the bedside. Patient states that he has been pain and continues to be morning in pain. He states that he took his pain medication at home but they have not been helping him. He takes Percocet, fentanyl patch at home to help him with pain. Other than pain patient states he does not have any other complaints.He denies having any loss of control of his bowel or bladder. No weakness of his extremities. Patient denies having any fevers chills or rigors. No cough or difficulty in breathing. No chest pain or palpitations. No abdominal pain nausea vomiting or diarrhea. No dysuria or hematuria. Denies having any swelling of his lower extremities. In the ER patient was given 3 doses of Dilaudid and a dose of Toradol and admitted for further management. Orthopedics and pain management services have been consulted as well. 07/27/2020 Patient is seen and evaluated and follow-up and continues to be in 10 out of 10 pain in his lower back and states the Dilaudid is not helping. Multiple medical consultations including oncology, Dr. Willoughby, and pain management following an patient will undergo epidural injection in the morning with Dr. Dubois. Will consult psychiatry for continued depression. Patient denies any thoughts of suicide or wanting to harm himself or others. at the bedside. Patient states he is unable to get up out of the bed due to severe pain and has been laying in the bed. Patient is tolerating diet with no reports of nausea or vomiting noted. 07/28/2020 Patient is seen and evaluated and continues to be in extreme back pain with generalized weakness and stating he has been able to get up out of the bed. Patient is scheduled to undergo epidural injection today with Dr. Dubois and Lovenox is currently on hold. Okay to resume once done with epidural injection. Patient was seen and evaluated by psychiatry and has been started on Cymbalta and will continue to monitor. Vital signs are stable. Patient reports to having some nausea and Zofran was ordered. Patient to continue with TLSO brace when out of bed and encourage the patient to increase activity as tolerated. On 07/29/2020-patient was seen and evaluated at the bedside. He states that his epidural shot helped him with his back pain. He is resting comfortably in bed with his mother and therapy dog at bedside. He denies having any chest pain or palpitations. No abdominal pain nausea vomiting or diarrhea. No dysuria or hematuria. No cough or difficulty in breathing. Vitals have been stable. On 07/30/2020 -patient is seen and evaluated at bedside. He has no therapy dog at bedside. Patient still complains of ongoing low back pain, states that the epidural steroid injection is helping him only to some extent. Patient denies having any chest pain or palpitations. No cough or difficulty breathing. No abdominal pain nausea vomiting or diarrhea. No dysuria or hematuria. On reviewing the vitals temperature 98.2, heart rate 90, respiratory 16, blood pressure 196-93, saturating at 93% on room air. No new labs from this morning. 07/31/2020 Patient is seen and evaluated and follow-up and continues to state he is in 10/10 pain and upset that his pain medications have been changed. Noted that the patient along with his dog and sleeping upon entering the room and patient is lying flat on his back in no acute distress. Apparently per nursing staff patient has been receiving blood pressure medications although multiple blood pressure pills were found underneath him and he has not been taking them. Patient was instructed and advised on the importance of taking all medications as prescribed. Cardiology following and has made adjustments to his pain medications and instructed the nursing staff to avoid IV narcotics if possible. Patient instructed to increase activity and anticipate discharge tomorrow 08/01/2020 Patient pain is much better controlled today and patient wanted to go home. Patient had a bowel movement. Patient is a being discharged on the regimen as below. Patient will closely follow with oncology. - Exam GENERAL: The patient is alert and oriented x3, not in any acute distress. Stating pain is 10 out of 10 and severe with no relief HEENT: Pupils are round and equally reacting to light. EOMI. No scleral icterus. mild conjunctival pallor. CARDIOVASCULAR: S1 and S2 present. Tachycardia PULMONARY: Chest is clear to auscultation, no wheezing or crackles. ABDOMEN: Soft, nontender, nondistended, normoactive bowel sounds. No palpable organomegaly. MUSCULOSKELETAL: Extreme back discomfort and tenderness in the L-spine noted on palpation EXTREMITIES: No cyanosis, clubbing. No pedal edema NEUROLOGICAL: Gross neurological examination did not reveal any focal deficits. SKIN: No rashes. Assessment and Plan Assessment: Intractable back pain due to metastatic lesions Metastatic lung cancer History of brain mets and status post radiation. Marijuana use on daily basis Plan - Discharge Summary Discharge Rx Participant: No New Discharge Prescriptions: New DULoxetine HCL [Cymbalta] 30 mg PO BID #60 capsule. oxyCODONE HCL [OxyIR] 20 mg PO Q3HR PRN 14 Days tab PRN Reason: Pain LORazepam [Ativan] 0.5 mg PO TID PRN #90 tab PRN Reason: Breakthrough Pain fentaNYL 100MCG/HR PATCH [Duragesic 100MCG/HR] 1 patch TRANSDERM Q72H #10 patch Pregabalin [Lyrica] 50 mg PO BID #60 cap polyethylene glycoL 3350 [Miralax] 17 gm PO DAILY #30 powd.pack Sennosides-Docusate Sodium [Senokot-S] 2 each PO BID #120 tab Continue Multivitamins, Thera [Multivitamin (formulary)] 1 tab PO DAILY Naloxone HCl [Narcan] 4 mg NASAL ONCE PRN PRN Reason: OVERDOSE Folic Acid 1 mg PO DAILY #30 tab Omeprazole 40 mg PO DAILY #30 cap Changed Ondansetron Odt [Zofran ODT] 8 mg PO Q4HR PRN #45 tab PRN Reason: Nausea And Vomiting Discontinued ALPRAZolam [Xanax] 0.5 mg PO TID PRN PRN Reason: Anxiety fentaNYL 75MCG/HR PATCH [Duragesic 75MCG/HR] 1 patch TRANSDERM Q72H 3 Days #1 patch oxyCODONE-APAP 10-325MG [Percocet 10-325 mg] 1 tab PO Q6H PRN PRN Reason: Pain No Action Albuterol Sulfate [Albuterol Sulfate Hfa] 2 puff INHALATION RT-QID PRN PRN Reason: Shortness Of Breath Albuterol Nebulized [Ventolin Nebulized] 2.5 mg INHALATION RT-QID PRN PRN Reason: Shortness Of Breath Sildenafil Citrate 100 mg PO DAILY PRN PRN Reason: E.D. Discharge Medication List Albuterol Sulfate [Albuterol Sulfate Hfa] 2 puff INHALATION RT-QID PRN 02/21/20 [History] Albuterol Nebulized [Ventolin Nebulized] 2.5 mg INHALATION RT-QID PRN 05/24/20 [History] Multivitamins, Thera [Multivitamin (formulary)] 1 tab PO DAILY 05/24/20 [History] Naloxone HCl [Narcan] 4 mg NASAL ONCE PRN 07/26/20 [History] Sildenafil Citrate 100 mg PO DAILY PRN 07/26/20 [History] DULoxetine HCL [Cymbalta] 30 mg PO BID #60 geovanni. 08/01/20 [Rx] Folic Acid 1 mg PO DAILY #30 tab 08/01/20 [Rx] LORazepam [Ativan] 0.5 mg PO TID PRN #90 tab 08/01/20 [Rx] Omeprazole 40 mg PO DAILY #30 cap 08/01/20 [Rx] Ondansetron Odt [Zofran ODT] 8 mg PO Q4HR PRN #45 tab 08/01/20 [Rx] Pregabalin [Lyrica] 50 mg PO BID #60 cap 08/01/20 [Rx] Sennosides-Docusate Sodium [Senokot-S] 2 each PO BID #120 tab 08/01/20 [Rx] fentaNYL 100MCG/HR PATCH [Duragesic 100MCG/HR] 1 patch TRANSDERM Q72H #10 patch 08/01/20 [Rx] oxyCODONE HCL [OxyIR] 20 mg PO Q3HR PRN 14 Days tab 08/01/20 [Rx] polyethylene glycoL 3350 [Miralax] 17 gm PO DAILY #30 powd.pack 08/01/20 [Rx] Follow up Appointment(s)/Referral(s): eDuce Tompkins MD [Primary Care Provider] - 1-2 days Lara Duckworth ANPBC [Nurse Practitioner] - 08/10/20 1:00 pm Ambulatory/Diagnostic Orders: Ambulatory Physical Therapy Order [THER.AMB] Location: None Selected Discharge/Stand Alone Forms: Anes Pain/Wismer Instructions
--- NOTE | 2020-08-01 14:17 | P.PN ---
Subjective Progress Note Date: 08/01/20 Principal diagnosis: Metastatic Cancer Pain Increased fentanyl and increased short acting oxy has appeared to help patient pain and he would like to be discharged. Objective - Vital Signs Vital signs: Vital Signs Temp 99.0 F 08/01/20 11:23 Pulse 64 08/01/20 11:23 Resp 18 08/01/20 11:23 BP 163/83 08/01/20 11:23 Pulse Ox 94 L 08/01/20 11:23 Intake & Output 07/31/20 08/01/20 08/01/20 18:59 06:59 18:59 Intake Total 240 590 Balance 240 590 Weight 97.976 kg Intake: Oral 240 590 Other: Voiding Method Toilet Toilet # Voids 500 2 - Exam Constitutional General appearance: cooperative, no acute distress - EENT Eyes: EOMI, PERRLA ENT: NA/AT, normal oropharynx - Neck Neck: normal ROM - Respiratory Respiratory: bilateral: diminished (lower) - Cardiovascular Rhythm: regular Heart sounds: normal: S1, S2 - Gastrointestinal General gastrointestinal: soft - Integumentary Integumentary: pale - Neurologic Neurologic: CNII-XII intact - Musculoskeletal Musculoskeletal: generalized weakness, right sided weakness - Psychiatric Depressed and anxious Psychiatric: A&O x's 3, appropriate affect - Labs CBC & Chem 7: 07/31/20 05:55 07/31/20 05:55 Assessment and Plan Plan: Assessment and Recommendations: Neoplastic related pain/Spasms: - Muscle relaxer ATC and increase short acting to 20mg oxy. - Fentanyl to continue - Status [post epidural for neoplastic related pain. Metastatic Non-Small Cell Lung Cancer: - Status POst cycle 3 of Opdivo and yervoy Pain management following for option of epidural. Review of MRI Brain 07/24 was stable. Discussed with patient and . Minor enhancement 4.6mm from 4.5mm (patient on immune therapy and pseudo increase maybe seen and this change is considered non-specific), repeat in 6 weeks. As far as his pain he states the epidural has not relieved pain at all, he is still asking for dilaudid 2mg q3 hours. He was also utilizing the oxycodone to max frequency \. We have discussed a plan, increased fentanyl patch, discontinue percocet (does not need percocet and oxycodone), Increased Oxycodone 20mg q3 prn. DIscussed with primary team Re-educated on staying compliant with BP meds and bowel regimen Incentive spirometer to bedside Increase activity MAPS Narcotic Agreement made within office. Ativan, Lyrica, Oxy, Fentanyl all sent to pharmacy. Physician attest: I have completed the full history and physical and agreee with above dictation, dictated as a ascribe
== END 2020-08-01 15:40 | disposition home or self-care (01) | DRG 948 ==
LOC: EC 10:12 → 1SOBS 13:39 → 5NMEDONC 18:41
PROVIDERS: ADMIT Internal Medicine; ATTEND Internal Medicine
PROC: 3E0S3BZ Introduction of Anesthetic Agent into Epidural Space, Percutaneous Approach (ICD-10-PCS; principal; 2020-07-28 13:00)
PROC: B01B1ZZ Fluoroscopy of Spinal Cord using Low Osmolar Contrast (ICD-10-PCS; principal; 2020-07-28 13:00)
PROC: 3E0S33Z Introduction of Anti-inflammatory into Epidural Space, Percutaneous Approach (ICD-10-PCS; principal; 2020-07-28 13:00)
DX: G89.3 Neoplasm related pain (acute) (chronic) (principal); C79.51 Secondary malignant neoplasm of bone; C79.31 Secondary malignant neoplasm of brain; C34.92 Malignant neoplasm of unspecified part of left bronchus or lung; M46.1 Sacroiliitis, not elsewhere classified; Z20.822 Contact with and (suspected) exposure to COVID-19; M47.816 Spondylosis without myelopathy or radiculopathy, lumbar region; M51.36 Other intervertebral disc degeneration, lumbar region; F32.9 Major depressive disorder, single episode, unspecified; F12.90 Cannabis use, unspecified, uncomplicated; H26.9 Unspecified cataract; M84.58XS Pathological fracture in neoplastic disease, other specified site, sequela; Z79.891 Long term (current) use of opiate analgesic; Z79.899 Other long term (current) drug therapy; Z87.891 Personal history of nicotine dependence; Z92.3 Personal history of irradiation; Z87.39 Personal history of other diseases of the musculoskeletal system and connective tissue; Z98.52 Vasectomy status; Z98.890 Other specified postprocedural states; Z87.01 Personal history of pneumonia (recurrent); Z86.69 Personal history of other diseases of the nervous system and sense organs; Z84.1 Family history of disorders of kidney and ureter
CPT/HCPCS: 62323; 70553; 72110; 80048; 80053; 84450; 84460; 85025; 87635; 96361; 96374; 96375; 96376; 99284

== ENCOUNTER → 2020-08-18 | Outpatient (CLI) | payer OTHER ==
--- NOTE | 2020-08-21 09:23 | PE ---
EXAMINATION TYPE: PET CT fusion skull to thigh DATE OF EXAM: 08/18/2020 COMPARISON: Prior PET/CT February 18, 2020 and older studies HISTORY: Lung cancer originally diagnosed in 2018 treated surgically October 16, 2018. History of metast atic disease to the brain. Completed chemotherapy 2 days ago. TECHNIQUE: Following the intravenous administration of 11.3 mCi of F-18 FDG, whole body images are p erformed from the skull base to the midthigh. Images are reviewed on the computer in the coronal, ax ial, and sagittal planes. Reconstructed rotating images are created on independent workstation and r eviewed on the computer. A localization and attenuation correction CT is performed in conjunction w ith the PET scan. Blood glucose level equals 1:30. SCAN: Subsequent Scan FINDINGS: SKULL BASE AND NECK: There are new suspicious hypermetabolic subcentimeter left posterior neck lymph nodes at level of hyoid bone axial image 52. Inferior to this there is new larger hypermetabolic 2.3 x 2.1 cm supraclavicular lymph node at level of thyroid gland axial image 63, max SUV is 7.92. CHEST, MEDIASTINUM, AND HILAR REGION: There is slightly hypermetabolic enlarging mediastinal lymph no de posterior to aortic arch measuring 1.2 x 1.0 cm new from prior. There is new 1.4 x 1.2 cm hypermet abolic left periaortic lymph node axial image 114, max SUV is 3.28. There is new 8mm lateral left upper lobe nodule axial image 79 is suspicious despite lack of hypermet abolic uptake. ABDOMEN AND PELVIS: New hypermetabolic retroperitoneal adenopathy centered mid to lower abdomen, for reference there is 2.4 x 2.0 cm left periaortic lymph node axial image 176, max SUV is 9.28. Several additional hypermetabolic lymph nodes are seen extending just past the aortic bifurcation. Prominent secretion along the ureters. OSSEOUS STRUCTURES: Improved or resolved hypermetabolic uptake near thoracolumbar junction. Underlyin g sclerotic lesions redemonstrated. There are however new hypermetabolic sclerotic lesions inferior to this in the lumbar spine for refer ence largest lesion axial image 176 with additional lytic component posteriorly. New Hypermetabolic s clerotic lesion left pelvis the level of the ischial tuberosity axial image 207. New hypermetabolic i nvolvement of the left acetabulum without definitive CT correlate. New hypermetabolic uptake left inf erior pelvic ramus and posterior aspect left proximal femur axial image [address] cor relate. Some new thoracic hypermetabolic lesions for reference right T3 lesion shows right-sided scle rosis and abnormal hypermetabolic uptake, max SUV is 6.[address] CT: Dependent small stones and/or gallbladder sludge. Visualized liver is diffusely low dense c onsistent with diffuse fatty infiltration. Focal moderate to severe fatty infiltration of the head an d body of pancreas. Scattered bilateral pelvic phleboliths. IMPRESSION: Metastatic neoplastic progression as detailed above.
== END | disposition home or self-care (01) ==
LOC: RADPETMAIN 08:14
PROVIDERS: ATTEND Internal Medicine Hematology & Oncology
DX: C34.12 Malignant neoplasm of upper lobe, left bronchus or lung (principal); C79.51 Secondary malignant neoplasm of bone; R59.0 Localized enlarged lymph nodes
CPT/HCPCS: 78815; A9552

== ENCOUNTER → 2020-12-11 | Outpatient (CLI) | payer OTHER ==
[2020-12-11 10:37] VITALS: BP 159/101; PULSE 105; RESP 18; TEMP 98.2
--- NOTE | 2020-12-11 10:45 | P.PAINPG ---
Subjective Progress Note Date: 12/11/20 This is 50 years old male with a chronic history of severe low back pain, started more than 2 years ago, patient diagnosed with lung cancer with metastases to the spine, and he had compression fracture of the lumbar spine, and he was treated previously with kyphoplasty, We last saw him in July 2020 as an inpatient and performed an L4-5 TERRY for him. Currently on MS ER 60 mg BID, MS IR 15 mg 12x a day, and fentanyl patch 75-100 mcg/hr. that he is having worsening pain in his left side with radiation into the left anterior thigh and groin. He is currently wheelchair bound and is unable to get up due to the pain. He was at some point told he has a broken hip but was unable to elaborate on that specifically. Says that overall his medications are helping somewhat but not really. Is interested in some type of injection, he had an L4-L5 epidural from us several months ago which he says was helpful overall. Physical Examinations : -Constitutiona : Cooperative , not in acute distress . -HEENT : nech : supple , no Lymphadenopathy , normal thyroid size . : eyes : no ptosis , no icterus, no photophobia . - neurologic : Cranial nerve II to XII intact , no focal neurological deffecit . -psychatric : alert , oriented X 3 , appropriate affect , intact judgment and insight . -Lymphatic : no Lymphadenopathy . - musculoskeltal : . Lumber spine moter stegnth lower extremities ,thigh and legs 4/5 Right side , 2/5 Left side deep tendon reflexes : normal Knee Jerk , normal ankle Jerk lumber facet Loading Test =positive Right , positive Left Range of motion of the lumbar spine Flexion 10 degrees, extension 10 degrees strait leg raising test = positive at 30 degree Fabere test= positive bilaterally Sever tenderness over the Sacroiliac joint on the Left sides Unable to perform other SIJ maneuvers due to significant pain Labs: X-ray of the lumbar spine lumbar degenerative disc disease MRI of the lumbar spine= pathological fracture of L4, metastatic disease, lumbar degenerative disc disease, lumbar facet arthropathy Assessment and Plan Plan: Assessment and plan=1-lumbar degenerative disc disease. 2-left sacroiliitis. 3-metastatic disease to the lumbar spine. 4-lumbar spondylosis with lumbar facet arthropathy. 5-pain secondary to malignancy. We'll perform left L3-L4 transforaminal epidural steroid injection for him. I have spent 25 minutes on patient care today. The time was used to review the medical records including relevant urine studies and prescription history, review of the available imaging, evaluation and examination of the patient, coordination of care with the medical staff and if applicable referring physicians, as well as creation of the medical record. PQRS Measure Charge Sheet PQRS Narrative: Smoking Status Former smoker Home Medications: Ambulatory Orders Albuterol Sulfate [Albuterol Sulfate Hfa] 2 puff INHALATION RT-QID PRN 02/21/20 Albuterol Nebulized [Ventolin Nebulized] 2.5 mg INHALATION RT-QID PRN 05/24/20 Multivitamins, Thera [Multivitamin (formulary)] 1 tab PO DAILY 05/24/20 Naloxone HCl [Narcan] 4 mg NASAL ONCE PRN 07/26/20 Sildenafil Citrate 100 mg PO DAILY PRN 07/26/20 DULoxetine HCL [Cymbalta] 30 mg PO BID #60 capsule.dr 08/01/20 Folic Acid 1 mg PO DAILY #30 tab 08/01/20 LORazepam [Ativan] 0.5 mg PO TID PRN #90 tab 08/01/20 Omeprazole 40 mg PO DAILY #30 cap 08/01/20 Ondansetron Odt [Zofran ODT] 8 mg PO Q4HR PRN #45 tab 08/01/20 Pregabalin [Lyrica] 50 mg PO BID #60 cap 08/01/20 Sennosides-Docusate Sodium [Senokot-S] 2 each PO BID #120 tab 08/01/20 fentaNYL 100MCG/HR PATCH [Duragesic 100MCG/HR] 1 patch TRANSDERM Q72H #10 patch 08/01/20 oxyCODONE HCL [OxyIR] 20 mg PO Q3HR PRN 14 Days tab 08/01/20 polyethylene glycoL 3350 [Miralax] 17 gm PO DAILY #30 powd.pack 08/01/20 Controlled Substance Measures - Controlled Substance Measures Is patient prescribed a controlled substance at discharge?: No
== END ==
LOC: PNWHC3 10:19
PROVIDERS: ATTEND Anesthesiology
DX: M51.36 Other intervertebral disc degeneration, lumbar region (principal); M46.1 Sacroiliitis, not elsewhere classified; C79.49 Secondary malignant neoplasm of other parts of nervous system; M47.816 Spondylosis without myelopathy or radiculopathy, lumbar region; G89.3 Neoplasm related pain (acute) (chronic); Z87.891 Personal history of nicotine dependence
CPT/HCPCS: 99211

== ENCOUNTER 2021-01-09 08:03 | Day surgery (SDC) | payer OTHER ==
[2021-01-02 16:06] VITALS: BMI 32.4
[~2021-01-09 08:03] MED LIST changes: -LIDOCAINE 1% 20 ML VIAL (10MG/ML) FOR IV START INTRADERMA PRN
[2021-01-09 08:34] VITALS: TEMP 97.4
[2021-01-09] MEDS ORDERED: ALBUTEROL NEBULIZED 2.5 MG/3 ML INHALATION PRN (08:38)
[2021-01-09] MEDS ORDERED: ONDANSETRON ODT 8 MG TAB.RAPDIS PO PRN (08:38)
[2021-01-09] MEDS ORDERED: ALBUTEROL HFA INHALER INHALATION PRN (08:38)
[2021-01-09] MEDS ORDERED: LORazepam 0.5 MG TAB PO PRN (08:38)
[2021-01-09] MEDS ORDERED: NON FORMULARY DRUG (Naloxone Hcl [Narcan] 4 MG Spray) NASAL PRN (08:38)
[2021-01-09] MEDS ORDERED: MIDAZOLAM 2 MG/2 ML VIAL ONE (08:42)
[2021-01-09] MEDS ORDERED: DEXAMETHASONE SOD PHOSPHATE 10 MG/ML 1 ML VIAL ONE (08:42)
[2021-01-09] MEDS ORDERED: IOPAMIDOL M200 10 ML VIAL ONE (08:42)
[2021-01-09] MEDS ORDERED: fentaNYL (PF) 50 MCG/ML 2 ML AMP ONE (08:42)
[2021-01-09] MEDS ORDERED: LACTATED RINGERS 1,000 ML IV SCH (08:45)
[2021-01-09] MEDS ORDERED: NON FORMULARY DRUG (Omeprazole [Omeprazole] 40 MG Capsule.Dr) PO SCH (09:00)
[2021-01-09] MEDS ORDERED: MORPHINE SULFATE ER 60 MG TABLET PO SCH (09:00)
[2021-01-09] MEDS ORDERED: DULoxetine HCL 30 MG CAPSULE.DR PO SCH (09:00)
[2021-01-09] MEDS ORDERED: IBUPROFEN 800 MG TAB PO SCH (09:00)
[2021-01-09] MEDS ORDERED: MULTIVITAMINS, THERA 1 EACH TAB PO SCH (09:00)
[2021-01-09] MEDS ORDERED: FOLIC ACID 1 MG TAB PO SCH (09:00)
[2021-01-09] MEDS ORDERED: IV FLUID CONTINUATION 775 ML IV ONE (09:07)
[2021-01-09 09:19] VITALS: RESP 16
--- NOTE | 2021-01-09 09:20 | P.PCN ---
Date of Procedure: 01/09/21 Operative Findings: PREOPERATIVE DIAGNOSIS: Lumbar radiculopathy, hip pain. POSTOPERATIVE DIAGNOSIS: Lumbar radiculopathy, and hip pain. PROCEDURE: 1) left-sided L3-L4 Transforaminal epidural steroid injection under fluoroscopic guidance, 2) Epidurogram SURGEON: Matheus Hernadez REFINERY OPERATOR ASSISTANT: None ANESTHESIA: Local , and IV sedation with Versed 2 mg, and fentanyl 150 g EBL: None. Specimen removed: None Fluoroscopic image: Saved to electronic medical records PROCEDURE INDICATION: The patient with continued lumbar pain with radiculopathy,, and hip pain and intervertebral disc disease without myelopathy that has failed to respond to adequate conservative management. Came here for repeat procedure. PROCEDURE DESCRIPTION: The patient was seen and identified in the preoperative area. Risks, benefits, complications, and alternatives were discussed with the patient. The patient agreed to proceed with the procedure and signed the consent. IV was started, and vital signs were stable. Patient was taken to the OR and time out was completed. The patient was placed in the prone position on procedure table and a pillow was placed under the abdomen to reduce lumbar lordosis. The lumbosacral area was prepped with ChloraPrep 1 and draped in the usual sterile fashion. Critical pause was taken. Vital signs were closely monitored during the procedure. Using 20 degree ipsilateral oblique fluoroscopy, the chin of the Smooth dog of L3 was identified, and the skin and deeper tissues just below was localized with 1% lidocaine. 22-guage 5-inch spinal needle was used for the procedure. The needle was guided by fluoroscopy just underneath the chin of the Smooth dog of L3. Under AP fluoroscopy, the needle was advanced to the 6 o'clock position of the [id number]. After negative aspiration of CSF and blood and with no paresthesias, 1 mL of Isovue-200 contrast dye was injected at each level with excellent anterior epidural spread and outlining of the L3 nerve root. Then underwent injection of 3 mL of block solution. Block solution contained 20 mg of dexamethasone, 1 mL of 1% lidocaine preservative-free . Needl was removed intact, skin was cleansed, and bandages were applied. COMPLICATIONS: None. DISPOSITION : The patient was placed in a supine position and transferred to the recovery area in a stable condition for observation and was discharged from the recovery room after meeting discharge criteria. Home discharge instructions given to the patient by the staff. The patient was reexamined prior to discharge. The patient will schedule follow-up in the clinic in 4 weeks' duration.
[2021-01-09] MEDS ORDERED: LABETALOL 5 MG/ML VIAL MDV IVP SCH (09:45)
[2021-01-09] MEDS ORDERED: LABETALOL SYRINGE 5 MG/ML IV ONE (09:47)
--- NOTE | 2021-01-09 09:57 | FL ---
EXAMINATION TYPE: FL guided pain mgmt statistic DATE OF EXAM: 01/09/2021 HISTORY: Fluoroscopy time 26 seconds of fluoroscopy provided. IMPRESSION: 1. Fluoroscopy time.
[2021-01-09 10:10] VITALS: BP 127/89; PULSE 93
== END 2021-01-09 10:17 | disposition home or self-care (01) ==
LOC: ORPAIN 08:03
DX: M54.16 Radiculopathy, lumbar region (principal)
CPT/HCPCS: 64483; J2250; J1100; J3010; Q9966; 99152